=== PATIENT | female | born 1985 | race Caucasian/White ===

== ENCOUNTER 2019-10-18 15:41 | Emergency (ER) | payer BC, SELFPAY ==
--- NOTE | ~2019-10-18 | CT_ITS ---
EXAMINATION: CT abdomen pelvis w con DATE: 10/18/2019 17:20 INDICATION: Right flank pain TECHNIQUE: Computed tomography (CT) of the abdomen and pelvis was performed with 100 cc Omnipaque 350 intravenous contrast. The dose-length product was 519.06 mGy-cm. Automated exposure control and iter ative reconstruction technique were employed. COMPARISON: None. FINDINGS: Lung bases are unremarkable. Heart size normal. No pleural or pericardial effusion. Fatty infiltration of the liver. Gallbladder is contracted. The spleen, pancreas, adrenal glands and kidneys are unremarkable. Nonobstructive bowel gas pattern. No significant hydronephrosis. The there is fluid in the endometrium. Multiple hypoechoic masses of the uterine myometrium may represent fibro id changes. No abnormal pelvic masses or fluid collections. No free air or free fluid. No significant vascular abnormality. No lymphadenopathy. No acute osseous abnormality. IMPRESSION: 1. No acute abdominal abnormality. 2: Possible uterine fibroids with endometrial thickening. Reviewed, dictated and finalized at location A.
[2019-10-18 15:54] VITALS: BP 112/72; PULSE 102; RESP 18; TEMP 36.3; O2SAT 98
[2019-10-18 16:27] LABS: Basophils Absolute Auto 0.1 K/mm3 (0.0-0.1); Basophils Percent Auto 0.8 % (0.2-1.2); Eosinophils Absolute Auto 0.1 K/mm3 (0-0.3); Eosinophils Percent Auto 1.6 % (0-4.4); Hematocrit 41.5 % (37.0-47.0); Hemoglobin 13.4 g/dL (12.0-15.0); Immature Granulocyte Absolute 0.02 K/mm3 (0.00-0.031); Immature Granulocyte Percent A 0.3 % (0-0.5); Lymphocytes Absolute Auto 0.96 K/mm3 (0.9-3.2); Lymphocytes Percent Auto 15.1 % (18.3-44.2); Mean Corpuscular HGB Conc 32.3 g/dl (32-36); Mean Platelet Volume 9.4 fl (7.4-10.4); Monocytes Absolute Auto 0.7 K/mm3 (0.1-0.6); Neutrophils Absolute Auto 4.5 K/mm3 (1.3-6.7); Neutrophils Percent Auto 71.2 % (45.5-73.1); Platelet Count Result 333 k/mm3 (150-375); Red Blood Count 4.46 M/mm3 (4.2-5.4); Red Cell Distribution Width 13.1 % (11.5-14.5); White Blood Count 6.4 K/mm3 (4.5-10.0)
[2019-10-18 16:35] LABS: Add Urine Microscopic? YES; Appearance Urine Clear (Clear); Bacteria Urine Trace /hpf; Bilirubin Urine Negative (Negative); Color Urine Amber (Yellow); Glucose Urine UA Negative (Negative); Ketones Urine Negative (Negative); Leukocyte Esterase Ur Trace LEU/UL (Negative); Nitrate Urine Negative (Negative); Protein Urine 1+ mg/dL (Negative); RBC Urine 0-2 /hpf (0-2); Specific Grav Ur 1.027 (1.001-1.035); Squamous Epithelial Cell Urine Many /hpf (Few)
[2019-10-18 16:37] LABS: Blood Urine Negative (Negative)
[2019-10-18 16:38] LABS: Blood Urea Nitrogen 14 mg/dL (7-17); Calcium 8.8 mg/dL (8.4-10.2); Carbon Dioxide 27 mmol/L (22-30); Chloride 102 mmol/L (98-107); Estimated Glomerular Filt Rate > 60; Glucose 79 mg/dL (65-105); Sodium 136 mmol/L (137-145)
--- NOTE | 2019-10-18 16:46 | ED.ABDPAIN ---
HPI - Abdominal Pain General Chief Complaint: Urogenital-Female Stated Complaint: uti/kidney stone Time Seen by Provider: 10/18/19 15:56 History of Present Illness HPI narrative: Patient is a 34 YO female who comes to ED today with complaints of right flank pain. She has been having urinary urgency and frequency x 5 days. R flank pain started 2 days ago, was seen by PCP yesterday and dx with UTI and started on abx. Admits to some nausea without vomiting. No other symptoms or concerns. Related Data Home Medications Medication Instructions Recorded Confirmed montelukast mg 10/18/19 sulfamethoxazole-trimethoprim 10/18/19 Allergies Allergy/AdvReac Type Severity Reaction Status Date / Time orange Allergy Unknown RASH Verified 10/18/19 15:42 codeine Allergy Loss of Verified 10/18/19 15:59 Consciousness oxycodone AdvReac Unknown Unknown Verified 10/18/19 15:42 Review of Systems Review of Systems: All systems reviewed & are unremarkable except as noted in HPI and below PMFSH Social History Social History Smoking status: Never smoker Alcohol intake: current Substance use: never Gender identity (if verbalized by the patient): Female Exam Const: General: healthy appearing, no acute distress and alert Orientation/consciousness: patient oriented x3 HENMT: Head: normal to inspection Eyes: Conjunctivae: conjunctivae normal Pupils: Equal, round and reactive pupils present Neck: Neck: normal visual inspection Chest: Chest palpation & inspection: normal inspection of the chest Resp: Effort & Inspection: normal respiratory effort Cardio: Rate: regular rate Rhythm: regular rhythm GI: Inspection: non-distended GI Palp: Yes Soft to palpation, Yes Tenderness to palpation present (GI) (TTP over R flank, R CVA, RLQ and suprapubic region) and No Rebound tenderness present : General: Yes CVA tenderness Skin: General skin exam: normal color Neuro: General: patient oriented x3 and moves all extremities Extrem: General: normal to inspection Psych: Appearance: grossly normal Mental Status: mental status grossly normal Thought content: Yes Normal thought content present Course Vital Signs Vital signs: Vital Signs Temperature 36.3 C L 10/18/19 15:54 Pulse Rate 102 H 10/18/19 15:54 Respiratory Rate 18 05/01/20 15:54 Blood Pressure 112/72 05/01/20 15:54 Pulse Oximetry 98 10/18/19 15:54 Temperature 36.3 C L 10/18/19 15:54 Pulse Rate 102 H 10/18/19 15:54 Respiratory Rate 18 10/18/19 15:54 Blood Pressure 112/72 10/18/19 15:54 Pulse Oximetry 98 10/18/19 15:54 MDM - Abdominal Pain MDM Narrative Medical decision making narrative: Patient comes in with flank pain. Dx with UTI and started on bactrim by PCP yesterday. Work up and exam consistent with early pyelo. She only recieved a 3 day course of bactrim so I am goint to extend that out to 10 days. Discussed home care and return precautions. Patient agreeable. Lab Data Result diagrams: 10/18/19 16:21 10/18/19 16:21 Labs: Lab Results 10/18/19 10/18/19 10/18/19 Range/Units 16:21 16:21 16:21 WBC 6.4 (4.5-10.0) K/mm3 RBC 4.46 (4.2-5.4) M/mm3 Hgb 13.4 (12.0-15.0) g/dL Hct 41.5 (37.0-47.0) % MCV 93.0 (80-100) fl MCH 30.0 (26-34) pg MCHC 32.3 (32-36) g/dl RDW 13.1 (11.5-14.5) % Plt Count 333 (150-375) k/mm3 MPV 9.4 (7.4-10.4) fl Immature Gran % (Auto) 0.3 (0-0.5) % Neut % (Auto) 71.2 (45.5-73.1) % Lymph % (Auto) 15.1 L (18.3-44.2) % [place] % (Auto) 11.0 H (2.6-8.5) % Eos % (Auto) 1.6 (0-4.4) % Baso % (Auto) 0.8 (0.2-1.2) % Lymph # (Auto) 0.96 (0.9-3.2) K/mm3 [place] # (Auto) 0.7 H (0.1-0.6) K/mm3 Eos # (Auto) 0.1 (0-0.3) K/mm3 Baso # (Auto) 0.1 (0.0-0.1) K/mm3 Abs Immat Gran (auto) 0.02 (0.00-0.031) K/mm3 Absolute Neuts (auto)
[2019-10-18] MEDS: KETOROLAC 15 MG/ML VIAL (*BKC) IV PUSH (16:50)
== END 2019-10-18 19:04 | disposition home or self-care (01) ==
PROVIDERS: Emergency Medicine
DX: N12 Tubulo-interstitial nephritis, not specified as acute or chronic (principal); R93.89 Abnormal findings on diagnostic imaging of other specified body structures
CPT/HCPCS: 36415; 74177; 80048; 81001; 81025; 85025; 87086; 96374; 99284; J1885; Q9967

== ENCOUNTER 2020-03-24 15:33 | Observation (INO) | payer OTHER, SELFPAY ==
--- NOTE | ~2020-03-24 | US_ITS ---
EXAMINATION: US OB <= 14 weeks fetus EXAM DATE: 03/24/2020 17:12 INDICATION: , vaginal bleeding. 1st trimester. TECHNIQUE: Pelvic obstetrical transabdominal sonogram was performed by a technologist. There are mu ltiple grayscale and Doppler images available for interpretation. There are no earlier studies of th is gestation for comparison. FINDINGS: The uterus measures 11.5 x 5.0 x 6.9 cm, with a markedly thickened endometrium at 21 mm, pr obably decidual reaction, but no intrauterine is identified. Also no extrauterine identified. Early intrauterine or recent spontaneous are common causes of elevate d beta hCG in absence of intrauterine confirmation. Ultrasound can sometimes identify, but never exclude an ectopic in the setting of positive beta hCG. Follow up as warranted clin ically with serial beta hCG levels or ultrasound. There are several large cervical cysts, nabothian cysts. Both ovaries are identified, and are morphol ogically normal with the right measuring 2.5 x 1.5 and the left measuring 3.4 x 1.9 cm. IMPRESSION: Thickened endometrium without intrauterine or extrauterine identified. Could be decidual reaction. Reviewed, dictated and finalized at location G. IMPRESSION: Thickened endometrium without intrauterine or extrauterine pregnanc y identified. Could be decidual reaction.
--- NOTE | ~2020-03-24 | US_ITS ---
EXAMINATION: US OB <=14 wk fetus w TV DATE: 03/26/2020 09:41 INDICATION: Vaginal bleeding. Early . TECHNIQUE: Real-time pelvic ultrasound utilizing both a transvaginal and transabdominal probe was pe rformed. The interpreting radiologist was not present for the study. COMPARISON: 03/24/2020 FINDINGS: The uterus measures 9.3 x 6.2 x 5.4 cm. The endometrial complex measures 1.6 cm in thickness.No evid ent intrauterine fluid or gestational sac. 1.4 cm nabothian cyst at the cervix. The right ovary measures 3.3 x 1.9 x 2.3 cm with normal vascular flow on color Doppler. The left ovar y not visualized. No abnormal adnexal masses identified. There is mild amount of free fluid in the cu l-de-sac. IMPRESSION: 1. Endometrial complex remains thickened to 1.6 cm without evident intrauterine or extrauterine pregn sherrill. Differential would include early , failed or ectopic . Reviewed, dictated and finalized at location A. IMPRESSION: 1. Endometrial complex remains thickened to 1.6 cm without evident intrauterine or extrauterine . Differential would include early , failed or ectopic .
[2020-03-24 16:25] VITALS: BP 140/87; PULSE 100; RESP 15; TEMP 36.5; O2SAT 99
--- NOTE | 2020-03-24 18:15 | ED.PREGNANCY ---
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 Bazzi who presents for evaluation of vaginal bleeding and cramping. Per patient, patient has had vaginal bleeding and cramping intermittently since Monday, over the past 72 hours. Patient reports mostly right-sided abdominal pain and cramping. No fever, nausea or vomiting. She intermittently has had heavy bleeding, has not utilizing 1 pad per hour. This afternoon she had outpatient blood work done at Dr. Bazzi's office, does not have the results of this at this time. She denies any urinary symptoms, she does report some obvious hematuria with the vaginal bleeding. Last pregnancies were 13 and 9 years ago and uncomplicated. No history of miscarriage. Patient believes her blood type is A-. Related Data Home Medications Medication Instructions Recorded Confirmed montelukast mg 10/18/19 sulfamethoxazole-trimethoprim 10/18/19 Allergies Allergy/AdvReac Type Severity Reaction Status Date / Time orange Allergy Unknown RASH Verified 10/18/19 15:42 codeine Allergy Loss of Verified 10/18/19 15:59 Consciousness oxycodone AdvReac Unknown Unknown Verified 10/18/19 15:42 Review of Systems Review of Systems: Narrative: CONSTITUTIONAL: Denies fever, chills CARDIOVASCULAR: Denies chest pain RESPIRATORY: Denies cough or dyspnea. GASTROINTESTINAL: Reports right-sided abdominal pain, nausea without vomiting GENITOURINARY: Denies dysuria, reports vaginal bleeding SKIN: Denies rash or itching. MUSCULOSKELETAL: Denies back pain, joint pain, or myalgia. NEUROLOGIC: Denies headache, numbness, or weakness. [facility] Social History Social History Smoking status: Never smoker Alcohol intake: current Substance use: never Gender identity (if verbalized by the patient): Female Exam Narrative: Exam Narrative: GENERAL: Awake, alert, conversant HEAD: Normocephalic, atraumatic. EYES: PERRLA and EOMI. ENT: Nares clear, no rhinorrhea or epistaxis. Mucous membranes moist. NECK: Supple. CHEST: No respiratory distress, breathing even and non labored HEART: Borderline tachycardic rate, sinus rhythm ABDOMEN:Non distended, mild right lower quadrant abdominal tenderness, no rebound or guarding : Approximately 25 mL of vaginal blood and blood clot present with cervical examination. Cervical os is dilated to 2 to 3 cm. Nontender to palpation. No cervical erythema or compressibility. No adnexal tenderness or fullness. EXTREMITIES: Normal range of motion. No edema. SKIN: Warm, dry, no rash. NEURO:No focal deficits. Alert and oriented x3 Course Vital Signs Vital signs: Vital Signs Temperature 36.5 C 03/24/20 16:25 Pulse Rate 100 03/24/20 16:25 Respiratory Rate 15 03/24/20 16:25 Blood Pressure 140/87 03/24/20 16:25 Pulse Oximetry 99 03/24/20 16:25 Temperature 36.5 C 03/24/20 16:25 Pulse Rate 100 03/24/20 16:25 Respiratory Rate 15 03/24/20 16:25 Blood Pressure 140/87 03/24/20 16:25 Pulse Oximetry 99 03/24/20 16:25 MDM - OB/Uterine Contractions MDM Narrative Medical decision making narrative: Pt with likely miscarriage, but awaiting lab results for bHCG and H/H to eval for anemia or possible ectopic. Dr. Bazzi recommends 50 mcg IM Rhogam. Patient with stable hemoglobin and hematocrit. Beta-hCG is greater than 2600. Given focal right-sided pain, cannot entirely rule out ectopic as no extrauterine or intrauterine was identified on ultrasound. Clinically on exam, seems that patient is likely experiencing a miscarriage, given the type of clots present on pelvic exam.
[2020-03-24 18:47] LABS: Basophils Absolute Auto 0.1 K/mm3 (0.0-0.1); Basophils Percent Auto 0.4 % (0.2-1.2); Eosinophils Absolute Auto 0.1 K/mm3 (0-0.3); Eosinophils Percent Auto 0.5 % (0-4.4); Hematocrit 39.7 % (37.0-47.0); Hemoglobin 12.9 g/dL (12.0-15.0); Immature Granulocyte Absolute 0.05 K/mm3 (0.00-0.031); Immature Granulocyte Percent A 0.4 % (0-0.5); Lymphocytes Absolute Auto 2.95 K/mm3 (0.9-3.2); Lymphocytes Percent Auto 21.9 % (18.3-44.2); Mean Corpuscular HGB Conc 32.5 g/dl (32-36); Mean Corpuscular Volume 92.3 fl (80-100); Mean Platelet Volume 9.3 fl (7.4-10.4); Monocytes Percent Auto 7.4 % (2.6-8.5); Neutrophils Absolute Auto 9.3 K/mm3 (1.3-6.7); Neutrophils Percent Auto 69.4 % (45.5-73.1); Platelet Count Result 372 k/mm3 (150-375); Red Cell Distribution Width 14.3 % (11.5-14.5); White Blood Count 13.4 K/mm3 (4.5-10.0)
[2020-03-24 18:58] LABS: Anion Gap 9 mmol/L (8-16); Blood Urea Nitrogen 13 mg/dL (7-17); Calcium 9.2 mg/dL (8.4-10.2); Carbon Dioxide 22 mmol/L (22-30); Chloride 107 mmol/L (98-107); Estimated Glomerular Filt Rate > 60; Glucose 90 mg/dL (65-105); Potassium 3.7 mmol/L (3.4-5.0); Sodium 138 mmol/L (137-145)
[2020-03-24 19:12] LABS: INR 0.9; Prothrombin Time 12.3 Seconds (11.1-14.7)
[2020-03-24 19:13] LABS: Partial Thromboplastin Time 24.1 SECONDS (22.3-36.8)
[2020-03-24 19:20] LABS: Add Urine Microscopic? YES; Appearance Urine Cloudy (Clear); Bilirubin Urine Negative (Negative); Blood Urine 3+ (Negative); Color Urine Red (Yellow); Glucose Urine UA Negative (Negative); Ketones Urine Negative (Negative); Leukocyte Esterase Ur Negative LEU/UL (Negative); Mucus Urine Rare /lpf; Nitrate Urine Negative (Negative); Protein Urine 2+ mg/dL (Negative); RBC Urine >75 /hpf (0-2); Specific Grav Ur 1.013 (1.001-1.035); Urobilinogen Urine Negative mg/dL (<2.0)
[2020-03-24] MEDS: SODIUM CHLORIDE 0.9% IV 1,000 ML 999 ML IV CONT (19:52)
[2020-03-24] MEDS: ONDANSETRON INJ 4 MG/2 ML VIAL IV PUSH ×2 (19:53→23:43)
[2020-03-24 20:02] VITALS: BP 109/79; PULSE 82; RESP 16; O2SAT 97
[2020-03-24 20:13] VITALS: BP 109/79; PULSE 78; RESP 16; TEMP 36.6; O2SAT 100
[2020-03-24 20:30] VITALS: BP 110/70; PULSE 89; RESP 18; TEMP 36.6; O2SAT 100; BMI 32.9
--- NOTE | 2020-03-24 20:33 | ADMGEN ---
This patient, Payton Aguiar, was admitted to 3 [facility] Surg Room 301-01. Patient/family oriented to hospital policies and general routines including ID bracelet, bed and alarms, visiting hours, pain management, procedures, bathroom and other care routines, personal items, smoking policy, room service/diet, and visiting hours. Valuables list has been completed. Information on how to activate the Rapid Response Team has been discussed. Patient/Family are encouraged to report perceived risks to care and to ask questions if they do not understand what they are told or what they should do.
[2020-03-24] MEDS: SODIUM CHLORIDE 0.9% IV 1,000 ML 125 ML IV CONT (21:48)
[2020-03-24] MEDS: MORPHINE SULFATE (*CRX) 4 MG/ML INJ IV PUSH (22:17)
[2020-03-24] MEDS: RHO(D) IMMUNE GLOBULIN 300 MCG SYRINGE 50 MCG IM (23:49)
[2020-03-25 00:40] VITALS: BP 110/70; PULSE 89; RESP 18; TEMP 36.6; O2SAT 100
--- NOTE | 2020-03-25 00:42 | PC.NURSE ---
Rho D Immune Globulin given IM
[2020-03-25] MEDS: IBUPROFEN IV 800 MG/200 ML 800 MG/200 ML BAG 400 MG IVPB ×2 (00:44→22:41)
[2020-03-25 06:00] VITALS: BP 103/60; PULSE 84; RESP 16; TEMP 36.3; O2SAT 98
[2020-03-25] MEDS: SODIUM CHLORIDE 0.9% IV 1,000 ML 125 ML IV CONT (06:33)
--- NOTE | 2020-03-25 12:56 | PM.IMHP ---
H&P: HPI History of Present Illness Date/Time: 03/25/20 12:56 Chief complaint: Vaginal bleeding, early Narrative: Payton Aguiar is a 34 year old female, multiparous, who presents emergency department with lower abdominal pain and vaginal bleeding. She is known to be . She was evaluated in the ER and an ultrasound was performed. No intrauterine was observed. She had an HCG of two thousand six hundred. She reported some very heavy bleeding prior to entering the emergency department. No real heavy bleeding was observed there. She has been on the floor and her bleeding has diminished significantly. She denies any nausea, vomiting, fever, chills. She denies any chest pain or shortness of breath. She denies any syncope or trouble walking. Review of Systems Constitutional: Constitutional: Reports no additional constitutional complaints, Denies fatigue, Denies headache(s), Denies lethargy and Denies weakness Eyes: Eyes: Reports no additional eye complaints, Denies blurry vision and Denies photophobia ENT: Reports as per HPI, Denies headache(s) and Denies neck pain Cardiovascular: Cardiovascular: Denies chest pain, Denies diaphoresis, Denies leg edema, Denies palpitations and Denies dyspnea Respiratory: Respiratory: Denies hemoptysis, Denies dyspnea and Denies wheezing Gastrointestinal: Gastrointestinal: Denies abdominal pain, Denies melena, Denies bloating, Denies hematochezia, Denies nausea and Denies vomiting Genitourinary: Genitourinary: Reports no additional female genitourinary complaints Musculoskeletal: Musculoskeletal: Denies joint swelling, Denies neck pain, Denies numbness and Denies stiffness Neurologic: Denies Abnormal speech present, Denies confusion, Denies headache(s), Denies numbness and Denies weakness Psychiatric: Psychiatric: Denies anxiety, Denies confusion, Denies depression, Denies homicidal ideation and Denies suicidal ideation Endocrine: Endocrine: Denies fatigue and Denies palpitations Allergic/Immunologic: Allergic/Immunologic: Denies wheezing [facility] Family History Family History (Updated 03/24/20 @ 21:30 by Leela Zaragoza RN) Father Hypertension Social History Social History Smoking packs per day: 1.5 Smoking cigarettes per day: 30.0 Years smoked: 10 Smoking pack-years: 15.00 Smoking status: Former smoker Tobacco type: cigarettes Second hand tobacco smoke exposure: No Alcohol intake: never Substance use: former Substance use type: marijuana Gender identity (if verbalized by the patient): Female Spiritual care concerns: No Meds Home Medications and Allergies Home Medications Medication Instructions Recorded Confirmed Type montelukast 10 mg PO DAILY 10/18/19 03/24/20 History cetirizine [Zyrtec] 10 mg PO DAILY 03/24/20 03/24/20 History pediatric multivitamin 1 tablet PO DAILY 03/24/20 03/24/20 History [Flintstones Multivitamin] Allergies Allergy/AdvReac Type Severity Reaction Status Date / Time orange Allergy Unknown RASH Verified 10/18/19 15:42 codeine Allergy Loss of Verified 10/18/19 15:59 Consciousness oxycodone AdvReac Unknown Unknown Verified 10/18/19 15:42 morphine AdvReac Itching Verified 03/24/20 22:31 Vital Signs Vital Signs - 24 hr 03/24/20 16:25 03/24/20 20:02 03/24/20 20:13 Temperature 97.7 F 97.9 F Pulse Rate 100 82 78 Respiratory Rate 15 16 16 Blood Pressure 140/87 109/79 109/79 Pulse Oximetry 99 97 100 03/24/20 20:30 03/25/20 00:40 03/25/20 06:00 Temperature 97.9 F 97.9 F 97.3 F L Pulse Rate 89 89 84 Respiratory Rate 18 18 16 Blood Pressure 110/70 110/70 103/60 Pulse Oximetry 100 100 98 Exam Const: General: healthy appearing, comfortable and no acute distress; No confusion Orientation/consciousness: No confusion Eyes: Direct Ophthalmoscopy: No photophobia Resp: Auscultation: clear to auscultation bilaterally,
[2020-03-25 14:00] VITALS: BP 98/57; PULSE 95; RESP 18; TEMP 36.9; O2SAT 100
[2020-03-25] MEDS: MONTELUKAST SODIUM 10 MG TABLET PO (15:13)
[2020-03-25] MEDS: LORATADINE 10 MG TABLET PO (15:13)
[2020-03-25 22:00] VITALS: BP 129/71; PULSE 92; RESP 16; TEMP 36.7; O2SAT 100
[2020-03-26] MEDS: SODIUM CHLORIDE 0.9% IV 1,000 ML 125 ML IV CONT (05:04)
[2020-03-26 06:00] VITALS: BP 105/55; PULSE 79; RESP 18; TEMP 36.6; O2SAT 97
--- NOTE | 2020-03-26 08:06 | PM.OBPNVD ---
OB - PN: Subj Subjective Date/time seen: 03/26/20 08:06 OB - PN: Obj Data Labs CBC & Chem 7: 03/24/20 18:40 03/24/20 18:40 Labs: Laboratory Results - last 24 hr 03/25/20 03/26/20 11:29 05:46 Beta HCG, Quant 2683.40 3653.00 OB - PN A/P Time Spent With Patient Time: Total time spent is greater than 50% in coordination of care (as documented) at patient's floor/unit and/or counseling patient: Time with patient: 15 - 25 minutes Exam Const: General: cooperative, healthy appearing, comfortable and no acute distress Resp: Auscultation: no crackles, no rales, no rhonchi and no wheezes Cardio: Rhythm: regular rhythm Heart sounds: no click and no murmurs GI: Inspection: non-distended Auscultation: normal bowel sounds Other: Incisions - CDI Extrem: General: normal to inspection, no pedal edema and no calf tenderness
[2020-03-26] MEDS: LORATADINE 10 MG TABLET PO (08:39)
[2020-03-26] MEDS: MONTELUKAST SODIUM 10 MG TABLET PO (08:40)
--- NOTE | 2020-03-26 12:24 | PM.GYNPNOP ---
SENIOR LEAD SOFTWARE ENGINEER - A/P Assessment and plan (1) Vaginal bleeding in : Code(s): O46.90 - Antepartum hemorrhage, unspecified, unspecified trimester Status: Acute Assessment and Plan: this patient is a 34-year-old female, multiparous, who presents emergency department with vaginal bleeding. She is . She believed to be about 5 weeks gestation. She has been observed for almost 48 hours. It is unclear whether she has ectopic , normal intrauterine or a incomplete . This time she is stable. HCGs are trending upward though they may not be normally trending. She is having very minimal pain. There is no evidence of ectopic on ultrasound. We will follow up with this patient about 3 days with quantitative HCG and pelvic ultrasound in the office. She will be discharged at this time. Time Spent With Patient Time: Total time spent is greater than 50% in coordination of care (as documented) at patient's floor/unit and/or counseling patient: Time with patient: less than 15 minutes SENIOR LEAD SOFTWARE ENGINEER- PN:Subj Post-Op Subjective Date/time seen: 03/26/20 12:24The patient reports diminished bleeding, diminished lower abdominal/ pelvic pain. Exam Const: General: healthy appearing, comfortable and no acute distress Resp: Auscultation: clear to auscultation bilaterally, no rales, no rhonchi and no wheezes Cardio: Rate: regular rate Heart sounds: no click, no murmurs and no rubs GI: Inspection: non-distended Auscultation: normal bowel sounds Extrem: General: normal to inspection, no pedal edema and no calf tenderness SENIOR LEAD SOFTWARE ENGINEER - PN: Obj Data Vital Signs Vital Signs: Vital Signs - 24 hr 03/25/20 14:00 03/25/20 22:00 03/26/20 06:00 Temperature 98.5 F 98.1 F 98 F Pulse Rate 95 92 79 Respiratory Rate 18 16 18 Blood Pressure 98/57 L 129/71 105/55 L Pulse Oximetry 100 100 97 Intake/Output Intake/Output: Intake & Output 03/23/20 03/24/20 03/25/20 03/26/20 23:59 23:59 23:59 23:59 Intake Total 1100 3641 600 Balance 1100 3641 600 Meds/Results Medications: Active Medications Generic Name Dose Route Start Last Admin Trade Name Freq PRN Reason Stop Dose Admin Sodium Chloride 1,000 mls @ 125 mls/hr 03/24/20 19:05 03/26/20 05:04 Normal Saline Iv IV CONT 125 mls/hr .Q8H JUNO Administration Ibuprofen 800 mg in 200 mls @ 400 mls/hr 03/25/20 00:04 03/26/20 05:05 Caldolor 800 Mg/200 Ml IVPB Infused Q6H PRN Infusion Pain Rated 4-6 Loratadine 10 mg 03/25/20 14:10 03/26/20 08:39 Claritin PO 10 mg QAM JUNO Administration Montelukast Sodium 10 mg 03/25/20 14:10 03/26/20 08:40 Singulair PO 10 mg DAILY JUNO Administration Morphine Sulfate 4 mg 03/24/20 19:03 03/24/20 22:17 Morphine Sulfate Inj (*Crx) IV PUSH 4 mg Q2H PRN Administration Pain Rated 7-10 Ondansetron HCl 4 mg 03/24/20 19:03 03/24/20 23:43 Zofran Inj IV PUSH 4 mg Q4H PRN Administration Nausea Radiology Results: ITS Impressions Ultrasound 03/24/20 17:25 IMPRESSION: Thickened endometrium without intrauterine or extrauterine identified. Could be decidual reaction. Obstetrics Ultrasound 03/26/20 09:44 IMPRESSION: 1. Endometrial complex remains thickened to 1.6 cm without evident intrauterine or extrauterine . Differential would include early , failed or ectopic . Labs CBC & Chem 7: 03/24/20 18:40 03/24/20 18:40 Labs: Laboratory Results - last 24 hr 03/26/20 05:46 Beta HCG, Quant 3653.00
--- NOTE | 2020-03-26 12:27 | PM.DS ---
DS: Admitting Diagnosis Admitting Diagnosis Admitting Diagnosis: Vaginal bleeding, early DS: Discharge Diagnosis Discharge Diagnosis (1) Vaginal bleeding in : Code(s): O46.90 - Antepartum hemorrhage, unspecified, unspecified trimester Status: Acute DS: Summary Hospital Course Reason for hospitalization: Vaginal bleeding, , rule out ectopic Hospital Course: patient was admitted through the emergency department for vaginal bleeding in . Her HCGs were followed, her pain was observed. She was stable throughout her hospitalization. To afebrile. Her pain was well controlled. She is discharged on hospital day 2 with close follow-up. She will have serial HCGs and ultrasound in about 3 days. for diagnosis remains unclear: Ectopic, intrauterine , incomplete . Status at Discharge Functional status at discharge: independent ambulation Time Spent with Patient Time attestation: Total time spent providing and/or coordinating discharge services: DS: Data Data Completed and Pending Labs on day of discharge: Labs from last 24 hours 03/26/20 05:46 Beta HCG, Quant 3653.00 Discharge Plan Discharge Discharging Clinician: Jacqueline Bazzi Patient Disposition: Home, Self-Care Activity: pelvic rest Diet: regular Patient Instructions: Antibiotic Form Stand Alone Forms: General Discharge Information Follow-up/Referrals: Jacqueline Bazzi MD [Primary Care Provider] - Discharge Medications: Continued montelukast 10 mg tablet 10 mg PO DAILY RF: 0 cetirizine [Zyrtec] 10 mg Tablet 10 mg PO DAILY RF: 0 Flintstones Multivitamin Tablet,Chewable 1 tablet PO DAILY RF: 0 Date of admission: 03/24/20 19:03 Primary Care Provider: Jacqueline Bazzi Admitting Provider: Jacqueline Bazzi Attending physician on admission: Jacqueline Bazzi
== END 2020-03-26 13:35 | disposition home or self-care (01) ==
LOC: ANHED 19:12 → ANH3MEDSUR 19:50
PROVIDERS: Admitting Provider Obstetrics & Gynecology; Emergency Provider Emergency Medicine; PCP Obstetrics & Gynecology; Visit Provider Obstetrics & Gynecology
DX: O46.91 Antepartum hemorrhage, unspecified, first trimester (principal); R10.2 Pelvic and perineal pain; Z87.891 Personal history of nicotine dependence; Z3A.01 Less than 8 weeks gestation of pregnancy
CPT/HCPCS: 36415; 76801; 76817; 80048; 81001; 81025; 84702; 85025; 85461; 85610; 85730; 90384; 96361; 96365; 96366; 96372; 96374; 96375; 96376; 99285; A9270; G0378; J0131; J1741; J2270; J2405; J2790; J7030

== ENCOUNTER 2020-03-28 11:01 | Outpatient (RCR) | payer OTHER, SELFPAY | END 2020-06-22 23:59 | disposition home or self-care (01) | LOC: ANHLAB 11:01 | PROVIDERS: Visit Provider Obstetrics & Gynecology | DX: Z36.89 Encounter for other specified antenatal screening (principal); Z29.13 Encounter for prophylactic Rho(D) immune globulin; O36.0130 Maternal care for anti-D [Rh] antibodies, third trimester, not applicable or unspecified; Z3A.00 Weeks of gestation of pregnancy not specified | CPT/HCPCS: 36415; 84702; 85461 ==

== ENCOUNTER 2020-03-28 12:07 | Emergency (ER) | payer OTHER, SELFPAY ==
--- NOTE | ~2020-03-28 | US_ITS ---
US OB <=14 wk fetus w TV DATE: 03/28/2020 16:42 INDICATION: Miscarriage. Patient passed clot. Vaginal bleeding. Right-sided abdominal pain. TECHNIQUE: Real-time imaging via transabdominal and transvaginal approaches COMPARISON: None FINDINGS: The uterus measures 10.2 cm height, 6.8 cm transverse and 5.4 cm anteroposterior dimension. The endometrial echo complex measures up to 2.4 cm AP dimension. No intrauterine gestational sac is identified. Findings suggest incomplete , retained products of conception. 13 and 14 mm uterine cervical nabothian cysts are noted. Right ovary 2.7 x 1.6 x 2 cm, with vascular flow Left ovary 3.4 x 2.8 x 1.8 cm, with vascular flow. No pelvic mass or abnormal pelvic free fluid collection is evident. IMPRESSION: Incomplete Reviewed, dictated and finalized at [facility]. Reviewed, dictated and finalized at location A. IMPRESSION: Incomplete
[2020-03-28 12:12] VITALS: BP 126/81; PULSE 98; RESP 20; TEMP 36.4; O2SAT 100
[2020-03-28 12:38] LABS: Basophils Percent Auto 0.4 % (0.2-1.2); Eosinophils Absolute Auto 0.2 K/mm3 (0-0.3); Eosinophils Percent Auto 1.6 % (0-4.4); Hematocrit 39.2 % (37.0-47.0); Hemoglobin 12.7 g/dL (12.0-15.0); Immature Granulocyte Absolute 0.03 K/mm3 (0.00-0.031); Immature Granulocyte Percent A 0.3 % (0-0.5); Lymphocytes Absolute Auto 2.23 K/mm3 (0.9-3.2); Lymphocytes Percent Auto 21.7 % (18.3-44.2); Mean Corpuscular HGB Conc 32.4 g/dl (32-36); Mean Corpuscular Hemoglobin 29.8 pg (26-34); Mean Platelet Volume 9.6 fl (7.4-10.4); Monocytes Absolute Auto 0.6 K/mm3 (0.1-0.6); Monocytes Percent Auto 6.2 % (2.6-8.5); Neutrophils Absolute Auto 7.2 K/mm3 (1.3-6.7); Neutrophils Percent Auto 69.8 % (45.5-73.1); Platelet Count Result 320 k/mm3 (150-375); Red Blood Count 4.26 M/mm3 (4.2-5.4); Red Cell Distribution Width 14.6 % (11.5-14.5); White Blood Count 10.3 K/mm3 (4.5-10.0)
[2020-03-28 15:57] VITALS: BP 115/76; PULSE 90; RESP 20; O2SAT 99
--- NOTE | 2020-03-28 16:36 | ED.ABDPAIN ---
HPI - Abdominal Pain General Chief Complaint: Vaginal Bleeding Stated Complaint: vaginal bleeding and cramping, right abd pain Time Seen by Provider: 03/28/20 12:36 Source: patient and family Mode of arrival: ambulatory Limitations: no limitations History of Present Illness HPI narrative: Patient 34 years old white female came to the emergency room because of vaginal bleeding which started 1 week ago, got worse this morning. Patient was seen by her DIRECTOR OF MARKETING [employer] few days ago with pelvic ultrasound showing possible early , possible ectopic or miscarriage. Patient was complaining of suprapubic abdominal cramps and nausea. Currently patient denies 5 to 6 weeks Patient is para 3, 2, 0 The patient is Rh O-, received a shot of RhoGam 4 days ago which is sufficient for 12 weeks. Related Data Home Medications Medication Instructions Recorded Confirmed montelukast 10 mg PO DAILY 10/18/19 03/24/20 Flintstones Multivitamin 1 tablet PO DAILY 03/24/20 03/24/20 cetirizine [Zyrtec] 10 mg PO DAILY 03/24/20 03/24/20 Allergies Allergy/AdvReac Type Severity Reaction Status Date / Time orange Allergy Unknown RASH Verified 10/18/19 15:42 codeine Allergy Loss of Verified 10/18/19 15:59 Consciousness oxycodone AdvReac Unknown Unknown Verified 10/18/19 15:42 morphine AdvReac Itching Verified 03/24/20 22:31 Review of Systems Review of Systems: Narrative: CONSTITUTIONAL: Denies fever, chills, or sweats. EYES: Denies visual changes, redness, or discharge. ENT: Denies rhinorrhea, congestion, sore throat, or otalgia. CARDIOVASCULAR: Denies chest pain, palpitations, or edema. RESPIRATORY: Denies cough or dyspnea. GASTROINTESTINAL: Denies abdominal pain, nausea, vomiting, or diarrhea. GENITOURINARY: Denies dysuria or hematuria. SKIN: Denies rash or itching. MUSCULOSKELETAL: Denies back pain, joint pain, or myalgia. NEUROLOGIC: Denies headache, numbness, or weakness. PSYCHIATRIC: Denies anxiety or depression. [facility] Past Medical History Medical History (Updated 03/28/20 @ 16:48 by Jasen Spear MD) Fibromyalgia Family History Family History (Updated 03/24/20 @ 21:30 by Leela Zaragoza RN) Father Hypertension Social History Social History Smoking packs per day: 1.5 Smoking cigarettes per day: 30.0 Years smoked: 10 Smoking pack-years: 15.00 Smoking status: Former smoker Tobacco type: cigarettes Second hand tobacco smoke exposure: No Alcohol intake: never Substance use: former Substance use type: marijuana Gender identity (if verbalized by the patient): Female Spiritual care concerns: No Exam Narrative: Exam Narrative: General appearance: Well-developed, well-nourished Skin: Normal color Head: Normocephalic, nontraumatic Eyes: Clear conjunctiva ENT: Oropharynx normal, ears normal, nose normal Neck: Supple, nontender Chest and respiratory: Airway patent, no respiratory distress, no accessory muscle use Heart: Regular rate/rhythm Abdomen: Soft, mild diffuse tenderness lower abdomen bilaterally mainly on the right side, no organomegaly, quiet bowel sounds Vascular: Normal peripheral pulses, normal capillary refill. Musculoskeletal: Normal range of motion, nontender back Neurologic: Alert and oriented ?3, CLERK TRAVEL RESERVATIONS is normal as tested, no gross motor deficit Const: General: cooperative : External Female Exam: normal external appearance Speculum Exam - Vagina: normal appearance of the vagina and vaginal bleeding (Patient brought back to house and they cervix, I was able to pull it out,) Speculum Exam - Cervix: Cervical os open [place]
--- NOTE | 2020-03-28 17:20 | PC.NURSE ---
product of conception walked down to lab
== END 2020-03-28 17:27 | disposition home or self-care (01) ==
PROVIDERS: Emergency Provider Emergency Medicine; PCP Obstetrics & Gynecology
DX: O03.9 Complete or unspecified spontaneous abortion without complication (principal); M79.7 Fibromyalgia; Z87.891 Personal history of nicotine dependence
CPT/HCPCS: 36415; 76801; 76817; 84702; 85025; 85461; 86880; 86902; 88305; 99284

== ENCOUNTER 2020-04-01 00:55 | Outpatient (CLI) | payer OTHER, SELFPAY ==
[2020-04-01 18:39] LABS: SARS-CoV-2 RNA PCR Negative
== END 2020-04-01 00:56 | disposition home or self-care (01) ==
LOC: ANHCOVIDDT 00:56
PROVIDERS: PCP Obstetrics & Gynecology; Visit Provider Obstetrics & Gynecology
DX: Z01.812 Encounter for preprocedural laboratory examination (principal); Z20.828 Contact with and (suspected) exposure to other viral communicable diseases
CPT/HCPCS: 87635; C9803; U0003

== ENCOUNTER 2020-04-02 01:08 | Day surgery (SDC) | payer OTHER, SELFPAY ==
[2020-03-31 15:47] VITALS: BMI 32.5
[2020-04-02] MEDS: ACETAMINOPHEN 500 MG TABLET 1000 MG PO (11:25)
[2020-04-02] MEDS: LACTATED RINGERS 1,000 ML 30 ML IV CONT (11:25)
--- NOTE | 2020-04-02 11:40 | WPDANESEPPF ---
Anes - Initial Pre Proc Eval Procedure: Operation Date: 04/02/20 12:45 Proposed Procedures p Suction Dilation And Curettage - Jacqueline Bazzi MD Date/Time: 04/02/20 11:40 Surgeon: Jacqueline Bazzi MD Pre Op Diagnosis: Incomplete Miscarriage Patient Data Age: 34 Gender: F Height: 4 ft 11 in Weight: 73.03 kg Allergies Allergy/AdvReac Type Severity Reaction Status Date / Time orange Allergy Unknown Itching Verified 03/31/20 15:49 codeine Allergy Loss of Verified 03/31/20 15:49 Consciousness oxycodone AdvReac Unknown vomiting, Verified 03/31/20 15:49 syncope morphine AdvReac chest Verified 03/31/20 15:49 pressure Home Medications Medication Instructions Recorded Confirmed Type montelukast 10 mg PO DAILY 10/18/19 04/02/20 History Flintstones Multivitamin 1 tablet PO DAILY 03/24/20 03/31/20 History cetirizine [Zyrtec] 10 mg PO DAILY 03/24/20 04/02/20 History Patient hx anesthesia problems: none Family hx anesthesia problems: none PMFSH Past Medical History Medical History Anxiety Asthma Depression Fibromyalgia GERD (gastroesophageal reflux disease) Hx of migraines Family History Family History Father Hypertension Social History Social History Smoking packs per day: 1.5 Smoking cigarettes per day: 30.0 Years smoked: 12 Smoking pack-years: 18.00 Smoking status: Former smoker Tobacco type: cigarettes Second hand tobacco smoke exposure: No Additional smoking assessment comments: quit 12 years ago Alcohol intake: never Substance use: former Substance use type: marijuana Last use: 16 years ago Gender identity (if verbalized by the patient): Female Spiritual care concerns: No Anes - Eval Final PreProcedure Day of Procedure 04/02/20 11:40 Patient weight: obese Heart: regular rate and rhythm Lungs: clear to auscultation Airway: Mallampati scale class II Neurological: alert and oriented Last oral intake: >/= 8 hours ASA classification: III Emergent: no Anesthetic plan: proceed Anesthesia type and monitoring: general GIVS and standard monitoring Other findings: can leave in large partial Informed Consent: The patient's anesthetic plan and its attendant risks and benefits were discussed with the patient/family/POA. Questions were solicited and answers provided to the satisfaction of the patient/family/POA.
[2020-04-02 11:41] VITALS: BP 110/72; PULSE 83; TEMP 37; O2SAT 100
--- NOTE | 2020-04-02 12:24 | WPDHPUPDATE1 ---
History and Physical Update Update Date/Time: 04/02/20 12:24 History and Physical has been reviewed, including an updated exam of the patient. There are NO changes in the patient's condition. Risks, benefits, and alternatives have been discussed and questions answered. Patient agrees to proceed with procedure.
[2020-04-02] MEDS: KETOROLAC 30 MG/ML VIAL (*BKC) IV PUSH (14:16)
--- NOTE | 2020-04-02 14:16 | SUR.OPER ---
Ebl=25ml
[2020-04-02 14:22] VITALS: BP 118/82; PULSE 80; RESP 18; O2SAT 100
--- NOTE | 2020-04-02 14:24 | PM.PROC ---
Procedure Note - Detailed Date of procedure: 04/02/20 Pre-op diagnosis: Incomplete Miscarriage Post-op diagnosis: same Procedure performed: Suction D&C Description of procedure: The patient was taken the operating room. She has prepped and draped in dorsal lithotomy position after induction of mac anesthesia. A speculum was placed in the vagina. The cervix was grasped with a tenaculum. The cervix was injected at 3 and 9:00 a.m. with 1% lidocaine. The cervix was dilated up to 8 mm using Aguilera dilators. An 8 curved plastic suction curette was then applied to the intrauterine cavity. All of the surfaces in the intrauterine cavity were curettage under VAC. A sharp medium-size curette was then used to curettage all the surfaces to confirmed the removal of all the products conception. When all surfaces for bleed to be clean the curette was removed. The suction curette was then reapplied to remove all the debris. The procedure was terminated. The tenaculum was removed. The speculum was removed. The patient tolerated the procedure well. She was taken recovery room in stable condition. Anesthesia: MAC Surgeon: Jacqueline Bazzi MD Estimated blood loss (mL): 25 Drains: No Packing: No Pathology: yes Complications: No immediate complications Condition: stable Disposition: PACU Findings: Normal vulva vagina and cervix. The moderate amounts of products conception. 8 cm uterus.
[2020-04-02 14:50] VITALS: BP 102/70; PULSE 73; RESP 18; O2SAT 94
[2020-04-02] MEDS: traMADol HCL (*CRX) 50 MG TABLET PO (14:59)
[2020-04-02 15:20] VITALS: BP 103/65; PULSE 72; RESP 18
[2020-04-02 15:30] VITALS: BP 106/68; PULSE 70; RESP 18
--- NOTE | 2020-04-02 15:30 | SUR.PHASEII ---
1530 PTS BLOOD TYPE A NEGATIVE. RECEIVED IN VERBAL REPORT FROM GRICELDA MAE RN. THAT PT RECEIVED RHOGAM 03-25-20 AND NO ADDITIONAL RHOGAM IS NEEDED TODAY.
== END 2020-04-02 15:45 | disposition home or self-care (01) ==
PROVIDERS: PCP Obstetrics & Gynecology; Visit Provider Obstetrics & Gynecology
PROC: (CPT 59812; principal; 2020-04-02 12:45)
DX: O03.4 Incomplete spontaneous abortion without complication (principal); J45.909 Unspecified asthma, uncomplicated; M79.7 Fibromyalgia; K21.9 Gastro-esophageal reflux disease without esophagitis; F41.8 Other specified anxiety disorders; Z87.891 Personal history of nicotine dependence; E66.9 Obesity, unspecified; Z68.31 Body mass index [BMI] 31.0-31.9, adult
CPT/HCPCS: 59812; 88305; A9270; J1885; J2250; J2405; J2704; J3010; J7120

== ENCOUNTER 2020-04-23 19:04 | Emergency (ER) | payer OTHER, SELFPAY ==
[2020-04-23 19:40] VITALS: BP 109/76; PULSE 94; RESP 18; TEMP 36.8; O2SAT 100
[2020-04-23] MEDS: fentaNYL CITRATE INJ (*CRX) 100 MCG/2 ML VIAL 50 MCG IM (20:00)
[2020-04-23 20:17] LABS: Basophils Percent Auto 0.4 % (0.2-1.2); Eosinophils Absolute Auto 0.1 K/mm3 (0-0.3); Eosinophils Percent Auto 0.9 % (0-4.4); Hematocrit 38.4 % (37.0-47.0); Hemoglobin 12.4 g/dL (12.0-15.0); Immature Granulocyte Absolute 0.04 K/mm3 (0.00-0.031); Immature Granulocyte Percent A 0.4 % (0-0.5); Lymphocytes Absolute Auto 2.69 K/mm3 (0.9-3.2); Lymphocytes Percent Auto 24.9 % (18.3-44.2); Mean Corpuscular HGB Conc 32.3 g/dl (32-36); Mean Corpuscular Hemoglobin 30.1 pg (26-34); Mean Corpuscular Volume 93.2 fl (80-100); Mean Platelet Volume 9.1 fl (7.4-10.4); Monocytes Percent Auto 9.3 % (2.6-8.5); Neutrophils Absolute Auto 6.9 K/mm3 (1.3-6.7); Neutrophils Percent Auto 64.1 % (45.5-73.1); Platelet Count Result 340 k/mm3 (150-375); Red Blood Count 4.12 M/mm3 (4.2-5.4); Red Cell Distribution Width 13.5 % (11.5-14.5); White Blood Count 10.8 K/mm3 (4.5-10.0)
--- NOTE | 2020-04-23 20:25 | ED.GENADULT ---
HPI - General Adult General Chief complaint: Urogenital-Female Stated complaint: abd/pelvic pain, known infection Time Seen by Provider: 04/23/20 19:20 Source: patient Mode of arrival: ambulatory Limitations: no limitations History of Present Illness HPI narrative: Patient presents with chief complaint of pelvic pain due to vaginosis that she has been finding since a miscarriage in the early part of March. Patient states that she had a D&C procedure done on the since she has had recurrent vaginal discomfort and some discharge. Patient states that she was on metronidazole for 1 week and 3 days ago she was switched to clindamycin. Patient states she has taken 2 days of clindamycin but she has noticed an increase in her vaginal pain. Patient denies vaginal bleeding and reports some thin clear vaginal discharge. Patient states that she called her FITNESS DIRECTOR Miesha Edmonds today to inform her of the discomfort but she was not in the office so the nurse took a message. She states she was informed that if her pain persisted or worsen to come to the emergency department. Related Data Home Medications Medication Instructions Recorded Confirmed montelukast 10 mg PO DAILY 10/18/19 04/02/20 Flintstones Multivitamin 1 tablet PO DAILY 03/24/20 03/31/20 cetirizine [Zyrtec] 10 mg PO DAILY 03/24/20 04/02/20 Allergies Allergy/AdvReac Type Severity Reaction Status Date / Time orange Allergy Unknown Itching Verified 03/31/20 15:49 codeine Allergy Loss of Verified 03/31/20 15:49 Consciousness oxycodone AdvReac Unknown vomiting, Verified 03/31/20 15:49 syncope morphine AdvReac chest Verified 03/31/20 15:49 pressure Review of Systems Review of Systems: Narrative: CONSTITUTIONAL: Denies fever, chills, or sweats. EYES: Denies visual changes, redness, or discharge. ENT: Denies rhinorrhea, congestion, sore throat, or otalgia. CARDIOVASCULAR: Denies chest pain, palpitations, or edema. RESPIRATORY: Denies cough or dyspnea. GASTROINTESTINAL: Denies abdominal pain, nausea, vomiting, or diarrhea. GENITOURINARY: Reports vaginal discharge and pelvic pain denies dysuria or hematuria. SKIN: Denies rash or itching. MUSCULOSKELETAL: Denies back pain, joint pain, or myalgia. NEUROLOGIC: Denies headache, numbness, dizziness, or weakness. PSYCHIATRIC: Denies anxiety or depression. [facility] Past Medical History Medical History Anxiety Asthma Depression Fibromyalgia GERD (gastroesophageal reflux disease) Hx of migraines Family History Family History Father Hypertension Social History Social History Smoking packs per day: 1.5 Smoking cigarettes per day: 30.0 Years smoked: 12 Smoking pack-years: 18.00 Smoking status: Former smoker Tobacco type: cigarettes Second hand tobacco smoke exposure: No Additional smoking assessment comments: quit 12 years ago Alcohol intake: never Substance use: former Substance use type: marijuana Last use: 16 years ago Gender identity (if verbalized by the patient): Female Spiritual care concerns: No Exam Narrative: Exam Narrative: GENERAL: Well-appearing, well-nourished, and in no acute distress. HEAD: Normocephalic, atraumatic. EYES: PERRLA and EOMI. ENT: Nares clear, no rhinorrhea or epistaxis. Mucous membranes moist. Oropharynx without tonsillar hypertrophy exudate or other lesions. Bilateral TMs pearly leon nonbulging NECK: Supple. No adenopathy or masses. CHEST: Clear to auscultation. No respiratory distress. No wheezes rales or rhonchi HEART: Regular rate and rhythm. No murmur heard. Normal peripheral pulses. : Patient is tender with speculum near cervix. There is not erythema, thin mucus like discharge noted mixed with white discharge coming from cervix. Not purulent, copious or foul smelling.
[2020-04-23 20:28] LABS: Alanine Aminotransferase 38 U/L (4-35); Alkaline Phosphatase 78 U/L (38-126); Anion Gap 9 mmol/L (8-16); Aspartate Amino Transferase 36 U/L (14-36); Bilirubin,Total 0.2 mg/dL (0.2-1.3); Blood Urea Nitrogen 15 mg/dL (7-17); Carbon Dioxide 29 mmol/L (22-30); Chloride 101 mmol/L (98-107); Estimated Glomerular Filt Rate > 60; Glucose 113 mg/dL (65-105); Potassium 3.6 mmol/L (3.4-5.0); Sodium 139 mmol/L (137-145)
[2020-04-23 20:54] VITALS: BP 108/62; PULSE 72; RESP 16; O2SAT 100
== END 2020-04-23 20:55 | disposition home or self-care (01) ==
PROVIDERS: Physician Assistant; Emergency Provider Family Medicine; PCP Obstetrics & Gynecology
DX: N76.0 Acute vaginitis (principal); Z87.891 Personal history of nicotine dependence; K21.9 Gastro-esophageal reflux disease without esophagitis; M79.7 Fibromyalgia; J45.909 Unspecified asthma, uncomplicated
CPT/HCPCS: 36415; 80053; 85025; 87070; 87491; 87591; 87808; 96372; 99284; J3010

== ENCOUNTER 2020-04-24 16:00 | Outpatient (CLI) | payer OTHER, SELFPAY ==
--- NOTE | ~2020-04-24 | US_ITS ---
EXAMINATION: US pelvic complete EXAM DATE: 04/24/2020 16:32 INDICATION: Pain in pelvis. TECHNIQUE: Pelvic transabdominal sonogram was performed. There are multiple grayscale and Doppler im ages available for interpretation. There is no prior study for comparison. FINDINGS: Uterus measures 8.4 x 4.2 x 5.6 cm, and is morphologically normal. Endometrial stripe romie sures 12 mm, within normal limits. There are nabothian cysts. There is no free pelvic fluid. Right adnexa: The ovary measures 2.2 x 1.2 x 1.5 cm and is morphologically normal. Ovarian vascular f low confirmed. Left adnexa: The ovary measures 2.1 x 1.7 x 1.6 cm and is morphologically normal. Ovarian vascular fl ow confirmed. IMPRESSION: 1. Unremarkable transabdominal pelvic ultrasound exam. Reviewed, dictated and finalized at location B. 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
== END 2020-04-24 16:01 | disposition home or self-care (01) ==
LOC: ANHIMG 16:02
PROVIDERS: PCP Obstetrics & Gynecology; Visit Provider Obstetrics & Gynecology
DX: R10.2 Pelvic and perineal pain (principal)
CPT/HCPCS: 76856

== ENCOUNTER 2020-09-25 14:52 | Emergency (ER) | payer OTHER, SELFPAY ==
--- NOTE | ~2020-09-25 | CT_ITS ---
EXAMINATION: CT abdomen pelvis wo con DATE: 09/25/2020 18:05 INDICATION: Flank pain TECHNIQUE: Computed tomography (CT) of the abdomen and pelvis was performed without intravenous contr ast. The dose-length product (DLP) was 231.12 mGy-cm. Automated exposure control and iterative recons truction technique were employed. COMPARISON: 10/18/2019 FINDINGS: A stable 3 mm nodule of the left lower lobe is consistent with old granulomatous disease. T he heart size is normal. The liver, spleen, pancreas, gallbladder, and adrenal glands are normal. The kidneys are unremarkable. No stones are identified in the kidneys, ureters, or bladder. There is no hydronephrosis or hydroureter. No pathologically enlarged abdominal or pelvic lymph nodes are identif ied. There is no free intraperitoneal gas or evidence of bowel obstruction. IMPRESSION: 1. No CT correlate for the patient's symptoms. Reviewed, dictated and finalized at location A.
[2020-09-25 15:06] VITALS: BP 135/95; PULSE 99; RESP 18; TEMP 36.2; O2SAT 100
[2020-09-25 17:18] LABS: Basophils Percent Auto 0.5 % (0.2-1.2); Eosinophils Absolute Auto 0.1 K/mm3 (0-0.3); Eosinophils Percent Auto 1.1 % (0-4.4); Hematocrit 41.4 % (37.0-47.0); Hemoglobin 13.3 g/dL (12.0-15.0); Immature Granulocyte Absolute 0.03 K/mm3 (0.00-0.031); Immature Granulocyte Percent A 0.4 % (0-0.5); Lymphocytes Absolute Auto 1.09 K/mm3 (0.9-3.2); Lymphocytes Percent Auto 13.8 % (18.3-44.2); Mean Corpuscular HGB Conc 32.1 g/dl (32-36); Mean Corpuscular Hemoglobin 29.3 pg (26-34); Mean Corpuscular Volume 91.2 fl (80-100); Mean Platelet Volume 9.2 fl (7.4-10.4); Neutrophils Absolute Auto 5.7 K/mm3 (1.3-6.7); Neutrophils Percent Auto 72.2 % (45.5-73.1); Platelet Count Result 312 k/mm3 (150-375); Red Blood Count 4.54 M/mm3 (4.2-5.4); Red Cell Distribution Width 13.4 % (11.5-14.5); White Blood Count 7.9 K/mm3 (4.5-10.0)
[2020-09-25 17:23] LABS: Add Urine Microscopic? YES; Appearance Urine Cloudy (Clear); Bacteria Urine 1+ /hpf; Bilirubin Urine Negative (Negative); Blood Urine 3+ (Negative); Color Urine Yellow (Yellow); Glucose Urine UA Negative (Negative); Ketones Urine Negative (Negative); Leukocyte Esterase Ur Trace LEU/UL (Negative); Nitrate Urine Negative (Negative); Protein Urine 2+ mg/dL (Negative); RBC Urine >75 /hpf (0-2); Squamous Epithelial Cell Urine Many /hpf (Few); Transitional Epi Cells Urine Rare /hpf (None Seen); Urobilinogen Urine Negative mg/dL (<2.0)
--- NOTE | 2020-09-25 17:28 | ED.GENADULT ---
HPI - General Adult General Chief complaint: Urogenital-Female <Anthony Jones PA-C - Last Filed: 09/25/20 18:59> Stated complaint: I think i have a uti sent by <Anthony Jones PA-C - Last Filed: 09/25/20 18:59> Time Seen by Provider: 09/25/20 15:08 <Anthony Jones PA-C - Last Filed: 09/25/20 18:59> Related Data Home medications: Home Medications Medication Instructions Recorded Confirmed montelukast 10 mg PO DAILY 10/18/19 04/02/20 Flintstones Multivitamin 1 tablet PO DAILY 03/24/20 03/31/20 cetirizine [Zyrtec] 10 mg PO DAILY 03/24/20 04/02/20 <Anthony Jones PA-C - Last Filed: 09/25/20 18:59> Allergies/adverse reactions: Allergies Allergy/AdvReac Type Severity Reaction Status Date / Time orange Allergy Unknown Itching Verified 03/31/20 15:49 codeine Allergy Loss of Verified 03/31/20 15:49 Consciousness oxycodone AdvReac Unknown vomiting, Verified 03/31/20 15:49 syncope morphine AdvReac chest Verified 03/31/20 15:49 pressure <Anthony Jones PA-C - Last Filed: 09/25/20 18:59> PMF Past Medical History Medical History: Medical History Anxiety Asthma Depression Fibromyalgia GERD (gastroesophageal reflux disease) Hx of migraines <Anthony Jones PA-C - Last Filed: 09/25/20 18:59> Family History Family History: Family History Father Hypertension <DARIA Masterson Last Filed: 09/25/20 18:59> Social History Social History: Social History Smoking packs per day: 1.5 Smoking cigarettes per day: 30.0 Years smoked: 12 Smoking pack-years: 18.00 Smoking status: Former smoker Tobacco type: cigarettes Second hand tobacco smoke exposure: No Additional smoking assessment comments: quit 12 years ago Alcohol intake: never Substance use: former Substance use type: marijuana Last use: 16 years ago Gender identity (if verbalized by the patient): Female Spiritual care concerns: No <Anthony Jones PA-C - Last Filed: 09/25/20 18:59> Course Course Emergency Course: Patient in the room at this time feeling better with interventions afebrile nontoxic-appearing ABCs and vital signs intact and stable patient with likely ascending urinary tract infection no high risk changes in the imaging or the blood work patient advised to continue the antibiotic and to follow-up with Dr. Jaeger on Monday patient feels comfortable with this plan patient was given fluids antibiotics and medications in the emergency department with provement as noted <Anthony Jones PA-C - Last Filed: 09/25/20 18:59> Vital Signs Vital signs: Vital Signs Temperature 97.2 F L 09/25/20 15:06 Pulse Rate 99 09/25/20 15:06 Respiratory Rate 18 09/25/20 15:06 Blood Pressure 135/95 H 09/25/20 15:06 Pulse Oximetry 100 09/25/20 15:06 Temperature 97.2 F L 09/25/20 15:06 Pulse Rate 89 09/25/20 18:58 Respiratory Rate 18 09/25/20 18:58 Blood Pressure 136/89 09/25/20 18:58 Pulse Oximetry 100 09/25/20 18:58 <Anthony Jones PA-C - Last Filed: 09/25/20 18:59> Vital Signs Temperature 97.2 F L 09/25/20 15:06 Pulse Rate 99 09/25/20 15:06 Respiratory Rate 18 09/25/20 15:06 Blood Pressure 135/95 H 09/25/20 15:06 Pulse Oximetry 100 09/25/20 15:06 Temperature 97.2 F L 09/25/20 15:06 Pulse Rate 89 09/25/20 18:58 Respiratory Rate 18 09/25/20 18:58 Blood Pressure 136/89 09/25/20 18:58 Pulse Oximetry 100 09/25/20 18:58 <Zhanna Vera MD - Last Filed: 09/26/20 20:08> Medical Decision Making MDM Narrative Medical decision making narrative: Patient evaluated for concern for kidney stone and worsening urinary tract infection patient on arrival in no distress afebrile nontoxic-appearin
[2020-09-25 17:30] LABS: Anion Gap 7 mmol/L (8-16); Blood Urea Nitrogen 9 mg/dL (7-17); Calcium 8.8 mg/dL (8.4-10.2); Carbon Dioxide 24 mmol/L (22-30); Chloride 105 mmol/L (98-107); Estimated Glomerular Filt Rate > 60; Glucose 79 mg/dL (65-105); Potassium 3.9 mmol/L (3.4-5.0); Sodium 136 mmol/L (137-145)
[2020-09-25] MEDS: SODIUM CHLORIDE 0.9% IV 1,000 ML 999 ML IV CONT (17:31)
[2020-09-25] MEDS: FAMOTIDINE 20 MG/2 ML VIAL IV PUSH (17:33)
[2020-09-25 18:58] VITALS: BP 136/89; PULSE 89; RESP 18; O2SAT 100
[2020-09-25] MEDS: KETOROLAC 30 MG/ML VIAL (*BKC) IV PUSH (19:08)
== END 2020-09-25 19:09 | disposition home or self-care (01) ==
PROVIDERS: Emergency Medicine Emergency Medical Services; Emergency Provider General Practice; PCP Physician Assistant
DX: N39.0 Urinary tract infection, site not specified (principal); J45.909 Unspecified asthma, uncomplicated; M79.7 Fibromyalgia; K21.9 Gastro-esophageal reflux disease without esophagitis; Z87.891 Personal history of nicotine dependence
CPT/HCPCS: 36415; 74176; 80048; 81001; 81025; 85025; 87086; 96361; 96365; 96375; 99284; J0131; J0696; J1885; J7030

== ENCOUNTER 2021-05-21 14:34 | Outpatient (CLI) | payer OTHER, SELFPAY ==
--- NOTE | ~2021-05-21 | MR_ITS ---
EXAMINATION: MR pituitary wo/w con DATE: 05/21/2021 16:03 INDICATION: Hyperprolactinemia. TECHNIQUE: Magnetic resonance imaging (MRI) of the brain and brainstem was performed without and with 15 mL MultiHance intravenous contrast. Whole-brain sequences included sagittal T1-weighted FSE, axia l diffusion-weighted FS EPI, axial T2*-weighted GRE, axial T2-weighted FLAIR Propeller, and axial T2- weighted Propeller. Small kvbiz-xl-obcu sequences included sagittal and coronal T1-weighted FSE cente red at the pituitary. Postcontrast sequences included small [id number]-[id number]-[id number] coronal T1-weighted FSE in a time course and sagittal T1-weighted FSE and whole-brain axial T1-weighted FSE. Apparent diffusion coefficient (ADC) maps were created. COMPARISON: None. FINDINGS: There is no intracranial hemorrhage, acute infarction, or abnormal intracranial mass lesion . The pituitary is normal in size with concave superior margin. The infundibulum is at the midline. T he paranasal sinuses are clear. The mastoid air cells are normal. The orbits are normal. IMPRESSION: 1. Normal brain. Normal pituitary. Reviewed, dictated and finalized at location A. ICKMAN HELPER
[2021-05-21 15:19] LABS: Estimated Glomerular Filt Rate > 60
== END 2021-05-21 14:35 | disposition home or self-care (01) ==
PROVIDERS: PCP Family Medicine; Visit Provider Obstetrics & Gynecology
DX: E22.1 Hyperprolactinemia (principal)
CPT/HCPCS: 70553; A9577

== ENCOUNTER 2021-07-06 16:43 | Emergency (ER) | payer OTHER, SELFPAY ==
--- NOTE | ~2021-07-06 | XR_ITS ---
EXAMINATION: XR chest 2V DATE: 07/06/2021 22:11 INDICATION: Medial chest pain. Shortness of breath. TECHNIQUE: Frontal and lateral views of the chest were obtained. COMPARISON: CT abdomen and pelvis 09/25/2020 FINDINGS: The chest demonstrates clear lungs without pneumonia, pleural effusion, or pneumothorax. Th e heart size is normal. IMPRESSION: 1. No acute cardiopulmonary disease. Reviewed, dictated and finalized at location A. Y LEVEL ACCOUNT REPRESENTATIVE
[2021-07-06 17:28] VITALS: BP 125/89; PULSE 98; RESP 18; TEMP 36.2; O2SAT 96
[2021-07-06 19:47] VITALS: BP 113/74; PULSE 96; TEMP 36.2; O2SAT 98
--- NOTE | 2021-07-06 21:51 | ECG_ITS ---
Measurements Intervals [place] Rate: 85 P: 42 LA: 155 QRS: 9 QRSD: 80 T: 24 QT: 355 QTc: 422 Interpretive Statements SINUS RHYTHM VOLTAGE CRITERIA FOR LVH MINIMAL Q WAVES- HIGH LATERAL LEADS BASELINE WANDER- I, II BORDERLINE ECG Electronically Signed On 07-07-2021 6:40:13 MENTAL RETARDATION AIDE by Kar Moore D.O.
[2021-07-06 23:36] LABS: Basophils Percent Auto 0.4 % (0.2-1.2); Eosinophils Absolute Auto 0.1 K/mm3 (0-0.3); Eosinophils Percent Auto 0.9 % (0-4.4); Hematocrit 43.2 % (37.0-47.0); Hemoglobin 13.8 g/dL (12.0-15.0); Immature Granulocyte Absolute 0.03 K/mm3 (0.00-0.031); Immature Granulocyte Percent A 0.3 % (0-0.5); Lymphocytes Absolute Auto 2.93 K/mm3 (0.9-3.2); Lymphocytes Percent Auto 30.6 % (18.3-44.2); Mean Corpuscular HGB Conc 31.9 g/dl (32-36); Mean Corpuscular Hemoglobin 29.4 pg (26-34); Mean Corpuscular Volume 92.1 fl (80-100); Mean Platelet Volume 8.8 fl (7.4-10.4); Monocytes Absolute Auto 1.1 K/mm3 (0.1-0.6); Monocytes Percent Auto 11.7 % (2.6-8.5); Neutrophils Absolute Auto 5.4 K/mm3 (1.3-6.7); Neutrophils Percent Auto 56.1 % (45.5-73.1); Platelet Count Result 381 k/mm3 (150-375); Red Blood Count 4.69 M/mm3 (4.2-5.4); Red Cell Distribution Width 13.8 % (11.5-14.5); White Blood Count 9.6 K/mm3 (4.5-10.0)
[2021-07-07 00:01] LABS: D Dimer 0.27 ug/mL (<0.48)
[2021-07-07 00:31] LABS: Anion Gap 11 mmol/L (8-16); Blood Urea Nitrogen 13 mg/dL (7-17); Calcium 9.2 mg/dL (8.4-10.2); Carbon Dioxide 29 mmol/L (22-30); Chloride 99 mmol/L (98-107); Estimated Glomerular Filt Rate > 60; Glucose 102 mg/dL (65-110); Potassium 3.6 mmol/L (3.4-5.0); Sodium 139 mmol/L (137-145)
--- NOTE | 2021-07-07 00:42 | ED.GENADULT ---
HPI - General Adult General Chief complaint: Upper Respiratory Infection Stated complaint: recent covid, congestion, cp Time Seen by Provider: 07/06/21 21:39 History of Present Illness HPI narrative: Patient is a 36-year-old female who presents ER with chest discomfort. Patient diagnosed with COVID-19 2 weeks ago. She began feeling better and then 4 days ago started having nasal congestion and chest productive of phlegm. Has pain with deep breath at times. No hemoptysis. No lower extremity swelling. No history of PE. Denies additional fevers or chills or sweats. She has been having body aches. She is taking no [id number] pain medication to try to resolve her discomfort. No other alleviating or aggravating factors. Denies history of coronary disease. No exertional chest pain. Related Data Home Medications Medication Instructions Recorded Confirmed montelukast 10 mg PO DAILY 10/18/19 04/02/20 Flintstones Multivitamin 1 tablet PO DAILY 03/24/20 03/31/20 cetirizine [Zyrtec] 10 mg PO DAILY 03/24/20 04/02/20 Allergies Allergy/AdvReac Type Severity Reaction Status Date / Time orange Allergy Unknown Itching Verified 03/31/20 15:49 codeine Allergy Loss of Verified 03/31/20 15:49 Consciousness oxycodone AdvReac Unknown vomiting, Verified 03/31/20 15:49 syncope morphine AdvReac chest Verified 03/31/20 15:49 pressure Review of Systems Review of Systems: All systems reviewed & are unremarkable except as noted in HPI and below Constitutional: Constitutional: Denies chills, Denies fever(s) and Denies weakness ENT: Denies nasal congestion and Denies sore throat Cardiovascular: Cardiovascular: Reports chest pain, Denies rapid heart rate and Denies radiating jaw, neck or arm pain Respiratory: Respiratory: Reports chest congestion, Reports cough, Denies dyspnea and Denies wheezing Gastrointestinal: Gastrointestinal: Denies abdominal pain, Denies nausea and Denies vomiting Musculoskeletal: Musculoskeletal: Reports myalgias, Denies arthralgias and Denies joint swelling PMFSH Past Medical History Medical History (Updated 07/07/21 @ 00:47 by Manpreet Abel MD) Anxiety Asthma Depression Fibromyalgia GERD (gastroesophageal reflux disease) Hx of migraines Surgical History Surgical History (Updated 07/07/21 @ 00:44 by Manpreet Abel MD) H/O dilation and curettage Family History Family History Father Hypertension Social History Social History Smoking packs per day: 1.5 Smoking cigarettes per day: 30.0 Years smoked: 12 Smoking pack-years: 18.00 Smoking status: Former smoker Tobacco type: cigarettes Second hand tobacco smoke exposure: No Additional smoking assessment comments: quit 12 years ago Alcohol intake: never Alcohol use details: socially Substance use: former Substance use type: marijuana Last use: 16 years ago Gender identity (if verbalized by the patient): Female Spiritual care concerns: No Exam Narrative: GENERAL: Well-appearing, well-nourished, and in no acute distress. HEAD: Normocephalic, atraumatic. NECK: Supple. CHEST: Clear to auscultation. No respiratory distress. HEART: Regular rate and rhythm. Normal peripheral pulses. EXTREMITIES: Normal range of motion. No edema. SKIN: Warm, dry, no rash. NEURO: Alert and oriented x3. PSYCH: Normal mood and affect. Course Course Emergency Course: Labs unremarkable. Chest x-ray negative. Symptoms felt to be musculoskeletal in nature. Recommend scheduled anti-inflammatories. Vital Signs Vital signs: Vital Signs Temperature 97.2 F L 07/06/21 17:28 Pulse Rate 98 07/06/21 17:28 Respiratory Rate 18 07/06/21 17:28 Blood Pressure 125/89 07/06/21 17:28 Pulse Oximetry 96 07/06/21 17:28 Temperature 97.2 F L 07/06/21 19:47 Pulse Rate 96 07/06/21 19
[2021-07-07 00:45] LABS: Troponin I < 0.012 ng/mL (0.000-0.034)
[2021-07-07] MEDS: KETOROLAC 30 MG/ML VIAL (*BKC) IM (00:47)
[2021-07-07 01:09] VITALS: BP 111/76; RESP 18; O2SAT 100
== END 2021-07-07 01:11 | disposition home or self-care (01) ==
PROVIDERS: Emergency Provider Emergency Medicine; PCP Family Medicine
DX: R07.89 Other chest pain (principal); Z86.16 Personal history of COVID-19; J45.909 Unspecified asthma, uncomplicated; M79.7 Fibromyalgia; K21.9 Gastro-esophageal reflux disease without esophagitis; Z87.891 Personal history of nicotine dependence; R94.31 Abnormal electrocardiogram [ECG] [EKG]
CPT/HCPCS: 36415; 71046; 80048; 84484; 85025; 85380; 93005; 96372; 99284; J1885

== ENCOUNTER → 2022-01-07 16:20 | Outpatient (CLI) | payer OTHER, SELFPAY ==
--- NOTE | ~2022-01-07 | XR_ITS ---
XR abdomen obstructive series DATE: 01/07/2022 17:00 INDICATION: Constipation TECHNIQUE: Supine and upright AP views COMPARISON: 10/05/2020 CT abdomen pelvis FINDINGS: There is no evidence of bowel obstruction or intraperitoneal free air. No visceromegaly or abnormal calcification is evident. Lung bases appear clear. Included skeletal structures are unremarkable. IMPRESSION: No significant abnormality Reviewed, dictated and finalized at Location [facility]. Reviewed, dictated and finalized at location B. IMPRESSION: No significant abnormality
== END ==
DX: K59.09 Other constipation (principal)
CPT/HCPCS: 74019

== ENCOUNTER → 2022-01-14 10:34 | Outpatient (CLI) | payer OTHER, SELFPAY ==
--- NOTE | ~2022-01-14 | CT_ITS ---
EXAMINATION: CT abdomen pelvis w con DATE: 01/14/2022 11:38 INDICATION: Right lower quadrant pain. Irregular bowel movements. TECHNIQUE: Computed tomography (CT) of the abdomen and pelvis was performed with 100 cc Omnipaque 350 intravenous contrast. The dose-length product was 829.24 mGy-cm. Automated exposure control and iter ative reconstruction technique were employed. COMPARISON: CT dated 09/25/2020 FINDINGS: There is a 5 mm right middle lobe nodule, image 1. Heart size normal. No significant pleura l or pericardial effusion. The liver, spleen, pancreas, adrenal glands and kidneys are unremarkable. Gallbladder is present. Non obstructive bowel pattern. There are multiple nabothian cysts. Colonic diverticulosis without evidenc e for acute diverticulitis. No significant vascular abnormality. No lymphadenopathy. Mildly prominent left ovarian vein. No free air or free fluid. No acute osseous abnormality. The appendix is not posi tively visualized. There is no pericecal inflammatory change to suggest appendicitis. IMPRESSION: 1. No acute abdominal abnormality. 2: Right middle lobe nodule measuring 5 mm, likely benign. Follow-up low dose CT chest in 12 months r ecommended. Reviewed, dictated and finalized at location A. IMPRESSION: 1. No acute abdominal abnormality. 2: Right middle lobe nodule measuring 5 mm, likely benign. Follow-up low dose C T chest in 12 months recommended.
== END ==
DX: R10.31 Right lower quadrant pain (principal); R91.8 Other nonspecific abnormal finding of lung field
CPT/HCPCS: 74177; Q9967

== ENCOUNTER 2022-02-04 19:55 | Emergency (ER) | payer OTHER, SELFPAY ==
--- NOTE | ~2022-02-04 | XR_ITS ---
EXAMINATION: XR chest 2V DATE: 02/04/2022 20:33 INDICATION: Chest pain. Palpitations. TECHNIQUE: Frontal and lateral views of the chest were obtained. COMPARISON: Chest 2 views 07/06/2021, CT abdomen and pelvis 01/14/2022 FINDINGS: There are airspace opacities in the lower lung zones. No pleural effusion or pneumothorax. The heart size is normal. IMPRESSION: 1. Airspace opacities in the lower lung zones, consistent with atelectasis versus pneumonia. Reviewed, dictated and finalized at location A. IMPRESSION: 1. Airspace opacities in the lower lung zones, consistent with atelectasis vers us pneumonia.
--- NOTE | 2022-02-04 20:03 | ECG_ITS ---
Measurements Intervals [place] Rate: 96 P: 144 MN: 145 QRS: -24 QRSD: 80 T: -28 QT: 332 QTc: 421 Interpretive Statements SINUS RHYTHM BORDERLINE LEFT AXIS DEVIATION [QRS AXIS < -20] COMPARED TO ECG 07/06/2021 23:23:09 NO SIGNIFICANT CHANGES Electronically Signed On 02-05-2022 13:36:07 CDT by Caitlin Rizo M.D.
[2022-02-04 20:33] LABS: Basophils Absolute Auto 0.1 K/mm3 (0.0-0.1); Basophils Percent Auto 0.4 % (0.2-1.2); Eosinophils Absolute Auto 0.1 K/mm3 (0-0.3); Eosinophils Percent Auto 0.6 % (0-4.4); Hematocrit 42.9 % (37.0-47.0); Hemoglobin 13.7 g/dL (12.0-15.0); Immature Granulocyte Absolute 0.04 K/mm3 (0.00-0.031); Immature Granulocyte Percent A 0.3 % (0-0.5); Lymphocytes Absolute Auto 2.77 K/mm3 (0.9-3.2); Lymphocytes Percent Auto 19.8 % (18.3-44.2); Mean Corpuscular HGB Conc 31.9 g/dl (32-36); Mean Corpuscular Hemoglobin 29.2 pg (26-34); Mean Corpuscular Volume 91.5 fl (80-100); Mean Platelet Volume 9.2 fl (7.4-10.4); Neutrophils Absolute Auto 10.1 K/mm3 (1.3-6.7); Neutrophils Percent Auto 71.9 % (45.5-73.1); Platelet Count Result 380 k/mm3 (150-375); Red Blood Count 4.69 M/mm3 (4.2-5.4); Red Cell Distribution Width 13.5 % (11.5-14.5)
[2022-02-04 20:42] LABS: Alanine Aminotransferase 20 U/L (6-35); Albumin Level 4.3 g/dL (3.5-5.1); Alkaline Phosphatase 102 U/L (38-126); Anion Gap 11 mmol/L (8-16); Aspartate Amino Transferase 26 U/L (14-36); Bilirubin,Total 0.2 mg/dL (0.2-1.3); Blood Urea Nitrogen 12 mg/dL (7-17); Calcium 9.2 mg/dL (8.4-10.2); Carbon Dioxide 23 mmol/L (22-30); Chloride 104 mmol/L (98-107); Estimated Glomerular Filt Rate > 60; Glucose 116 mg/dL (65-110); Lipase 85 U/L (23-300); Potassium 3.7 mmol/L (3.4-5.0); Prothrombin Time 12.5 Seconds (11.1-14.7); Sodium 138 mmol/L (137-145)
[2022-02-04 20:43] LABS: Partial Thromboplastin Time 23.2 SECONDS (22.3-36.8)
[2022-02-04 20:54] LABS: Troponin I < 0.012 ng/mL (0.000-0.034)
[2022-02-04 21:01] VITALS: BP 134/77; PULSE 109; RESP 20; TEMP 36.5; O2SAT 98
[2022-02-04 21:52] VITALS: BP 121/85; PULSE 91; RESP 13; O2SAT 98
[2022-02-04 22:01] VITALS: BP 116/79; PULSE 78; RESP 18; O2SAT 97
[2022-02-04 22:31] VITALS: BP 123/94; PULSE 90; RESP 24
[2022-02-04] MEDS: SODIUM CHLORIDE 0.9% IV 1,000 ML 999 ML IV CONT (22:40)
[2022-02-04] MEDS: ASPIRIN 81 MG CHEWABLE TABLET 324 MG PO (22:40)
[2022-02-04 22:56] LABS: D Dimer 0.41 ug/mL (<0.48)
[2022-02-04 23:02] VITALS: BP 110/74; PULSE 90; RESP 17
[2022-02-04 23:25] LABS: Appearance Urine Clear (Clear); Bilirubin Urine Negative (Negative); Blood Urine Negative (Negative); Color Urine Yellow (Yellow); Glucose Urine UA Negative (Negative); Ketones Urine Trace mg/dL (Negative); Leukocyte Esterase Ur Negative LEU/UL (Negative); Nitrate Urine Negative (Negative); Protein Urine Negative (Negative); Specific Grav Ur >= 1.030 (1.001-1.035); Urobilinogen Urine 0.2 mg/dL (<2.0)
[2022-02-04 23:34] LABS: Mucus Urine Rare /lpf; RBC Urine 0-2 /hpf (0-2); Squamous Epithelial Cell Urine Few /hpf (Few); WBC Urine 0-3 /hpf
[2022-02-04 23:35] LABS: Add Urine Microscopic? YES
[2022-02-04 23:47] LABS: Troponin I < 0.012 ng/mL (0.000-0.034)
[2022-02-05 00:01] VITALS: BP 108/70; PULSE 77; RESP 15; O2SAT 97
--- NOTE | 2022-02-05 00:15 | ED.GENADULT ---
HPI - General Adult General Chief complaint: Arrhythmia/Palpitations Stated complaint: palpitations with dizziness Time Seen by Provider: 02/04/22 21:48 Source: RN notes reviewed History of Present Illness HPI narrative: Patient presents emergency room from home for heart palpitations. Patient states that palpitations began yesterday. States that she is having episodes where she feels like her heart is racing. During his episodes the patient states she does feel dizziness as well as some mild chest tightness and shortness of breath. States that episodes will last for approximate 5 to 10 minutes and resolved. States that that most recent episode occurred during sexual intercourse earlier today so she is also had episodes while working out and also will be nonactive. Patient states she was discharged on Zoloft this week and has been taking it she denies any fevers or chills cough abdominal pain vomiting or diarrhea she does note mild nausea with the episodes Related Data Home Medications Medication Instructions Recorded Confirmed montelukast 10 mg tablet 10 mg PO DAILY 10/18/19 04/02/20 cetirizine 10 mg tablet (Zyrtec) 10 mg PO DAILY 03/24/20 04/02/20 pediatric multivitamin 1 tablet PO DAILY 03/24/20 03/31/20 (Flintstones Multivitamin chewable tablet) Allergies Allergy/AdvReac Type Severity Reaction Status Date / Time orange Allergy Unknown Itching Verified 02/04/22 21:07 codeine Allergy Loss of Verified 02/04/22 21:07 Consciousness oxycodone AdvReac Unknown vomiting, Verified 02/04/22 21:07 syncope morphine AdvReac chest Verified 02/04/22 21:07 pressure Review of Systems Review of Systems: Gen.: Denies fevers or chills Eyes: Denies eye pain or visual change ENT: Denies reports shortness of breath CV: Reports palpitations GI: Denies abdominal pain emesis or diarrhea recent nausea Musculoskeletal: Denies back pain or muscle pain Neuro: D denies headache reports dizziness with episodes Skin: Denies rash Except as documented, all other systems reviewed and negative PMFSH Past Medical History Medical History Anxiety Asthma Depression Fibromyalgia GERD (gastroesophageal reflux disease) Hx of migraines Surgical History Surgical History (Updated 07/07/21 @ 00:44 by Manpreet Abel MD) H/O dilation and curettage Family History Family History Father Hypertension Social History Social History Smoking packs per day: 1.5 Smoking cigarettes per day: 30.0 Years smoked: 12 Smoking pack-years: 18.00 Smoking status: Former smoker Tobacco type: cigarettes Second hand tobacco smoke exposure: No Additional smoking assessment comments: quit 12 years ago Alcohol intake: never Alcohol use details: socially Substance use: former Substance use type: marijuana Last use: 16 years ago Gender identity (if verbalized by the patient): Female Spiritual care concerns: No Exam Narrative: APPEARANCE: No acute distress, nontoxic, resting in bed EYES: EOMI HEENT: Normocephalic, atraumatic, OMM RESPIRATORY: No respiratory distress Clear to auscultation bilaterally with no rhonchi wheezing or rales. CARDIOVASCULAR: Regular rate and rhythm without murmurs rubs or gallops. ABDOMINAL: Soft, nontender, nondistended, no rebound or guarding MUSCULOSKELETAl: Moves all extremities. No clubbing, cyanosis or edema. NEURO: Awake and alert X 4. Following commands, speech normal, no focal deficits SKIN:: Warm, dry. No rashes lesions or abrasions PSYCHIATRIC: Normal affect/mood, Course Course Emergency Course: Patient remained on rn cardiac cath throughout stay in ED no arrhythmias noted Following chest x-ray did discuss with the patient patient's had no fever she has had no cough believe this is likely atelectasis
[2022-02-05 00:35] VITALS: BP 108/70; PULSE 75; RESP 16; O2SAT 99
== END 2022-02-05 00:35 | disposition home or self-care (01) ==
PROVIDERS: Emergency Medicine; Emergency Provider Emergency Medicine
DX: R00.2 Palpitations (principal); J45.909 Unspecified asthma, uncomplicated; M79.7 Fibromyalgia; K21.9 Gastro-esophageal reflux disease without esophagitis; Z87.891 Personal history of nicotine dependence; R91.8 Other nonspecific abnormal finding of lung field; R94.31 Abnormal electrocardiogram [ECG] [EKG]
CPT/HCPCS: 36415; 71046; 80053; 81001; 81025; 83690; 84484; 85025; 85380; 85610; 85730; 93005; 96374; 99284; A9270; J7030

== ENCOUNTER 2022-05-19 15:15 | Emergency (ER) | payer OTHER, SELFPAY ==
--- NOTE | ~2022-05-19 | CT_ITS ---
EXAMINATION: CT abdomen pelvis w con DATE: 05/19/2022 21:13 INDICATION: Abdominal pain with nausea TECHNIQUE: Computed tomography (CT) of the abdomen and pelvis was performed with 100 cc Omnipaque 350 intravenous contrast. The dose-length product was 716.83 mGy-cm. Automated exposure control and iter ative reconstruction technique were employed. COMPARISON: CT dated 01/14/2022. FINDINGS: There is a 3 mm pleural-based left lower lobe nodule, likely benign. Heart size is normal. No significant pleural or pericardial effusion. No significant vascular abnormality. No lymphadenopat hy. There are hypodense masses in the lower uterine segment, likely fibroids, largest measuring 2.2 c m. The liver, spleen, pancreas, adrenal glands and kidneys are unremarkable. Gallbladder is present. The re is a tampon in the vagina. Bladder is decompressed. No abnormal pelvic masses or fluid collections . No free air or free fluid. Nonobstructive bowel pattern. No acute osseous abnormality. IMPRESSION: 1. No acute abdominal abnormality. Reviewed, dictated and finalized at location A. HARDENER
[2022-05-19 15:18] VITALS: BP 131/79; PULSE 92; RESP 18; TEMP 36.4; O2SAT 98
[2022-05-19 16:00] LABS: Basophils Absolute Auto 0.1 K/mm3 (0.0-0.1); Basophils Percent Auto 0.6 % (0.2-1.2); Eosinophils Absolute Auto 0.1 K/mm3 (0-0.3); Eosinophils Percent Auto 1.1 % (0-4.4); Hematocrit 42.4 % (37.0-47.0); Hemoglobin 13.8 g/dL (12.0-15.0); Immature Granulocyte Absolute 0.02 K/mm3 (0.00-0.031); Immature Granulocyte Percent A 0.2 % (0-0.5); Lymphocytes Absolute Auto 2.81 K/mm3 (0.9-3.2); Lymphocytes Percent Auto 32.2 % (18.3-44.2); Mean Corpuscular HGB Conc 32.5 g/dl (32-36); Mean Corpuscular Hemoglobin 29.4 pg (26-34); Mean Corpuscular Volume 90.4 fl (80-100); Mean Platelet Volume 9.3 fl (7.4-10.4); Monocytes Absolute Auto 0.7 K/mm3 (0.1-0.6); Monocytes Percent Auto 8.1 % (2.6-8.5); Neutrophils Percent Auto 57.8 % (45.5-73.1); Platelet Count Result 380 k/mm3 (150-375); Red Blood Count 4.69 M/mm3 (4.2-5.4); Red Cell Distribution Width 13.6 % (11.5-14.5); White Blood Count 8.7 K/mm3 (4.5-10.0)
[2022-05-19 16:11] LABS: Alanine Aminotransferase 16 U/L (6-35); Albumin Level 4.3 g/dL (3.5-5.1); Alkaline Phosphatase 86 U/L (38-126); Anion Gap 8 mmol/L (8-16); Aspartate Amino Transferase 21 U/L (14-36); Bilirubin,Total 0.2 mg/dL (0.2-1.3); Blood Urea Nitrogen 13 mg/dL (7-17); Calcium 8.9 mg/dL (8.4-10.2); Carbon Dioxide 26 mmol/L (22-30); Chloride 102 mmol/L (98-107); Estimated Glomerular Filt Rate > 60; Glucose 105 mg/dL (65-110); Lipase 62 U/L (23-300); Potassium 4.3 mmol/L (3.4-5.0); Sodium 136 mmol/L (137-145)
--- NOTE | 2022-05-19 19:29 | ED.ABDPAIN ---
HPI - Abdominal Pain General Chief Complaint: Headache Stated Complaint: migraine Time Seen by Provider: 05/19/22 19:03 History of Present Illness HPI narrative: This is a 36-year-old female with past medical history of miscarriage in 2019 status post D&C, who presents emergency department complaining abdominal tenderness and nausea beginning today. This morning patient noted diffuse abdominal pain, described as cramping, primarily in the lower abdomen, occasionally radiating towards the bilateral legs. This is associated with nausea without vomiting or diarrhea. She states earlier this week she was diagnosed with a urinary tract infection and started on Macrobid. She has no other complaints today. Related Data Home Medications Medication Instructions Recorded Confirmed montelukast 10 mg tablet 10 mg PO DAILY 10/18/19 04/02/20 cetirizine 10 mg tablet (Zyrtec) 10 mg PO DAILY 03/24/20 04/02/20 pediatric multivitamin 1 tablet PO DAILY 03/24/20 03/31/20 (Flintstones Multivitamin chewable tablet) Allergies Allergy/AdvReac Type Severity Reaction Status Date / Time orange Allergy Unknown Itching Verified 05/19/22 18:35 codeine Allergy Loss of Verified 05/19/22 18:35 Consciousness oxycodone AdvReac Unknown vomiting, Verified 05/19/22 18:35 syncope morphine AdvReac chest Verified 05/19/22 18:35 pressure Review of Systems Review of Systems: CONSTITUTIONAL: Denies fever, chills, or sweats. EYES: Denies visual changes, redness, or discharge. ENT: Denies rhinorrhea, congestion, sore throat, or otalgia. CARDIOVASCULAR: Denies chest pain, palpitations, or edema. RESPIRATORY: Denies cough or dyspnea. GASTROINTESTINAL: Abdominal pain, nausea denies vomiting, or diarrhea. GENITOURINARY: Denies dysuria or hematuria. Last menstrual period beginning 3 days ago SKIN: Denies rash or itching. MUSCULOSKELETAL: Denies back pain, joint pain, or myalgia. NEUROLOGIC: Denies headache, numbness, dizziness, or weakness. PSYCHIATRIC: Denies anxiety or depression. [facility] Past Medical History Medical History Anxiety Asthma Depression Fibromyalgia GERD (gastroesophageal reflux disease) Hx of migraines Surgical History Surgical History H/O dilation and curettage Family History Family History Father Hypertension Social History Social History Smoking packs per day: 1.5 Smoking cigarettes per day: 30.0 Years smoked: 12 Smoking pack-years: 18.00 Smoking status: Former smoker Tobacco type: cigarettes Second hand tobacco smoke exposure: No Additional smoking assessment comments: quit 12 years ago Alcohol intake: never Alcohol use details: socially Substance use: former Substance use type: marijuana Last use: 16 years ago Gender identity (if verbalized by the patient): Female Spiritual care concerns: No Exam Narrative: GENERAL: Well-appearing, well-nourished, and in no acute distress. HEAD: Normocephalic, atraumatic. EYES: PERRLA and EOMI. ENT: Nares clear, no rhinorrhea or epistaxis. Mucous membranes moist. Oropharynx without tonsillar hypertrophy exudate or other lesions. Bilateral TMs pearly leon nonbulging NECK: Supple. No adenopathy or masses. No carotid bruits or JVD CHEST: Clear to auscultation. No respiratory distress. No wheezes rales or rhonchi HEART: Regular rate and rhythm. No murmur heard. Normal peripheral pulses. ABDOMEN: Soft, minimal diffuse tenderness palpation greatest in the suprapubic region, nondistended, normal active bowel sounds. Mild left CVA tenderness to palpation EXTREMITIES: Normal range of motion. No edema. SKIN: Warm, dry, no rash. NEURO: No focal deficits. Alert and oriented x3. PSYCH: Normal mood and affect. Course Cours
[2022-05-19 20:59] LABS: Appearance Urine Clear (Clear); Bilirubin Urine Negative (Negative); Blood Urine 1+ (Negative); Color Urine Yellow (Yellow); Glucose Urine UA Negative (Negative); Ketones Urine Negative (Negative); Leukocyte Esterase Ur Negative LEU/UL (Negative); Nitrate Urine Negative (Negative); Protein Urine Negative (Negative); Specific Grav Ur 1.025 (1.001-1.035); Urobilinogen Urine 0.2 mg/dL (<2.0)
[2022-05-19 21:01] LABS: Bacteria Urine Trace /hpf; Mucus Urine Rare /lpf; Squamous Epithelial Cell Urine Moderate /hpf (Few); WBC Urine 0-3 /hpf
[2022-05-19 21:02] LABS: Add Urine Microscopic? YES
[2022-05-19] MEDS: KETOROLAC 30 MG/ML VIAL (*BKC) IV PUSH (22:25)
== END 2022-05-19 22:39 | disposition home or self-care (01) ==
PROVIDERS: Emergency Medicine; Emergency Provider Preventive Medicine Aerospace Medicine
DX: D25.9 Leiomyoma of uterus, unspecified (principal); J45.909 Unspecified asthma, uncomplicated; M79.7 Fibromyalgia; K21.9 Gastro-esophageal reflux disease without esophagitis; Z87.891 Personal history of nicotine dependence
CPT/HCPCS: 36415; 74177; 80053; 81001; 81025; 83690; 85025; 96374; 96375; 99284; J0131; J1885; Q9967

== ENCOUNTER 2022-07-04 12:02 | Emergency (ER) | payer OTHER, SELFPAY ==
--- NOTE | 2022-07-04 12:08 | ED.URI ---
HPI - URI/Sore Throat General Chief Complaint: Upper Respiratory Infection Stated Complaint: Congestion,Cough,Sore Throat Time Seen by Provider: 07/04/22 12:35 Source: patient and RN notes reviewed Mode of arrival: ambulatory Limitations: no limitations History of Present Illness HPI Narrative: 37-year-old female presents concern for 3-4 day history of cough, sore throat, nasal congestion. She reports violent coughing fits that caused her to vomit. She reports she had a COVID infection about 1 month ago and also had fluid within the last 2 months. She reports she tried Mucinex DM without relief MD elicited complaint: cough and sore throat Related Data Home Medications Medication Instructions Recorded Confirmed montelukast 10 mg tablet 10 mg PO DAILY 10/18/19 07/04/22 cetirizine 10 mg tablet (Zyrtec) 10 mg PO DAILY 03/24/20 07/04/22 oxybutynin chloride 5 mg 5 mg PO DAILY 07/04/22 07/04/22 tablet,extended release 24 hr Allergies Allergy/AdvReac Type Severity Reaction Status Date / Time orange Allergy Unknown Itching Verified 07/04/22 12:14 codeine Allergy Loss of Verified 07/04/22 12:14 Consciousness oxycodone AdvReac Unknown vomiting, Verified 07/04/22 12:14 syncope morphine AdvReac chest Verified 07/04/22 12:14 pressure Review of Systems Review of Systems: CONSTITUTIONAL: Denies malaise, chills, sweats, or fever. EYES: Denies visual changes, redness, or discharge. ENT: Reports rhinorrhea, congestion, sore throat. Denies sinus pain, otalgia CARDIOVASCULAR: Denies chest pain, palpitations, or edema. RESPIRATORY: Reports cough. Denies dyspnea. GASTROINTESTINAL: Denies abdominal pain, nausea, vomiting, diarrhea SKIN: Denies rash or itching. MUSCULOSKELETAL: Denies myalgia. NEUROLOGIC: Denies headache. All systems reviewed & are unremarkable except as noted in HPI and below PMFSH Past Medical History Medical History Anxiety Asthma Depression Fibromyalgia GERD (gastroesophageal reflux disease) Hx of migraines Surgical History Surgical History H/O dilation and curettage Family History Family History Father Hypertension Social History Social History Smoking packs per day: 1.5 Smoking cigarettes per day: 30.0 Years smoked: 12 Smoking pack-years: 18.00 Smoking status: Former smoker Tobacco type: cigarettes Second hand tobacco smoke exposure: No Additional smoking assessment comments: quit 12 years ago Alcohol intake: never Alcohol use details: socially Substance use: former Substance use type: marijuana Last use: 16 years ago Gender identity (if verbalized by the patient): Female Spiritual care concerns: No Comments At time of signature, agree with nursing past medical, surgical, social and family history. There is no relevant family history pertinent to the presenting complaint Exam Narrative: GENERAL: Well-appearing, well-nourished, and in no acute distress. HEAD: Normocephalic EYES: PERRLA, conjunctivae clear ENT: Nares clear, turbinates edematous and erythematous, clear discharge. Mucous membranes moist. TM pearly leon with dull light reflex bilaterally; no tragal tenderness. Oropharynx not erythematous without lesions. Tonsils not enlarged and without exudate, no drooling, no hoarseness, no trismus, uvula midline. NECK: Supple. No lymphadenopathy CHEST: Clear to auscultation, breath sounds equal. No wheezing, rhonchi, rales, or stridor. No respiratory distress, speaks in full sentences. HEART: Regular rate and rhythm. No murmur heard. SKIN: Warm, dry, no rash. NEURO: Alert and oriented x3. PSYCH: Normal mood and affect Course Course Emergency Course: Patient is aware of diagnosis, understands and agrees to treatment fan
[2022-07-04 12:11] VITALS: BP 113/82; PULSE 113; RESP 18; TEMP 36.7; O2SAT 99
== END 2022-07-04 14:14 | disposition home or self-care (01) ==
PROVIDERS: Emergency Provider Nurse Practitioner; PCP Family Medicine
DX: J40 Bronchitis, not specified as acute or chronic (principal); Z87.891 Personal history of nicotine dependence
CPT/HCPCS: 87081; 87880; 99213; G0463

== ENCOUNTER → 2022-07-25 15:40 | Outpatient (CLI) | payer OTHER, SELFPAY ==
--- NOTE | ~2022-07-25 | XR_ITS ---
EXAMINATION: XR chest 2V DATE: 07/25/2022 15:56 INDICATION: Subacute cough TECHNIQUE: frontal and lateral views of the chest were obtained. COMPARISON: Chest radiograph dated 02/04/2022 FINDINGS: The lungs are clear with no focal airspace opacities, pulmonary edema, pleural effusion or pneumothor ax. Heart size is normal. Left paracardial fat pad. Mild thoracic spondylosis. IMPRESSION: 1. No acute cardiopulmonary disease. Reviewed, dictated and finalized at location A. TER OPERATOR
== END ==
PROVIDERS: PCP Family Medicine; Visit Provider Family Medicine
DX: R05.2 Subacute cough (principal)
CPT/HCPCS: 71046

== ENCOUNTER 2022-09-10 11:05 | Outpatient (RCR) | payer OTHER, SELFPAY ==
[2022-09-10] MEDS: RHO(D) IMMUNE GLOBULIN 300 MCG/2 ML SYRINGE IM (10:39)
== END 2022-12-07 23:59 | disposition home or self-care (01) ==
LOC: ANHLAB 11:05
PROVIDERS: PCP Family Medicine; Visit Provider Advanced Practice Midwife
DX: O20.0 Threatened abortion (principal); Z29.13 Encounter for prophylactic Rho(D) immune globulin; O36.0190 Maternal care for anti-D [Rh] antibodies, unspecified trimester, not applicable or unspecified; Z3A.00 Weeks of gestation of pregnancy not specified
CPT/HCPCS: 36415; 84702; 85461; 86850; 86900; 86901; 90384; J2790

== ENCOUNTER 2023-02-08 17:05 | Outpatient (RCR) | payer OTHER, SELFPAY ==
[2023-02-06 17:23] LABS: Beta HCG Quantitative 41.69 mIU/ML
[2023-02-08] MEDS: RHO(D) IMMUNE GLOBULIN 300 MCG/2 ML SYRINGE IM (16:52)
[2023-02-08 18:11] LABS: Beta HCG Quantitative 16.76 mIU/ML
== END 2023-05-07 23:59 | disposition home or self-care (01) ==
LOC: ANHLAB 17:05
PROVIDERS: PCP Family Medicine; Visit Provider Obstetrics & Gynecology
DX: O20.0 Threatened abortion (principal); Z29.13 Encounter for prophylactic Rho(D) immune globulin; Z3A.00 Weeks of gestation of pregnancy not specified
CPT/HCPCS: 36415; 84702; 85461; 86850; 86900; 86901; 90384; 96372; J2790

== ENCOUNTER 2023-03-31 12:20 | Observation (INO) | payer OTHER, SELFPAY ==
--- NOTE | ~2023-03-31 | US_ITS ---
US OB <=14 wk fetus w TV 03/31/2023 18:21 Indication: Vaginal bleeding. Pain with . Procedure: Realtime transvaginal and transabdominal obstetrical ultrasound Comparison: No prior studies for comparison. Findings: Uterus measures 9.6 x 6 x 5.1 cm. Endometrium is thickened measuring 2.2 cm. There are nabo thian cysts. There is a small amount of free fluid in the pelvic cul-de-sac. No intrauterine gestatio nal sac or yolk sac are identified. Right ovary is normal measuring 2.9 x 1.4 x 1.7 cm. Left ovary me asures 4.8 x 2.9 x 3.4 cm and contains a cystic structure with some associated peripheral vascularity . No yolk sac or gestational sac are identified. Impression: 1: Complex partially cystic structure left ovary measuring 1.7 cm with peripheral vascularity. No int rauterine identified. Correlate with beta hCG levels. Differential diagnosis includes very early intrauterine , ectopic and failed . Recommend follow-up with serial quantitative beta-hCG levels and ultrasound as clinically warranted. Reviewed, dictated and finalized at location A. Impression: 1: Complex partially cystic structure left ovary measuring 1.7 cm with peripher al vascularity. No intrauterine identified. Correlate with beta hCG l evels. Differential diagnosis includes very early intrauterine , ectop ic and failed . Recommend follow-up with serial quantitative beta-hCG levels and ultrasound as clinically warranted.
[2023-03-31 12:57] VITALS: BP 149/101; PULSE 84; RESP 16; TEMP 36.7; O2SAT 100
--- NOTE | 2023-03-31 17:30 | ED.PREGNANCY ---
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 Patient reports she developed lower abdominal cramping, described as contraction-like around 845 this morning. Pain was fairly severe for approximately 1 hour before improving slightly. Pain has been intermittent since then. Radiates to back. She also reported nausea with the pain but denied vomiting. She took a test at home which was positive. She then prompted here. Her BRAZER HELPER INDUCTION is Dr. Bazzi. Patient is G6, P2 and notes a history of 2 previous miscarriages this year (August and January). She is unsure when her last menstrual cycle was as she has not had a full cycle since the miscarriages. She does report light vaginal spotting over the last several days, as well as dysuria. Denies hematuria, fevers, vomiting. Related Data Home Medications Medication Instructions Recorded Confirmed montelukast 10 mg tablet 10 mg PO DAILY 10/18/19 07/04/22 cetirizine 10 mg tablet (Zyrtec) 10 mg PO DAILY 03/24/20 07/04/22 oxybutynin chloride 5 mg 5 mg PO DAILY 07/04/22 07/04/22 tablet,extended release 24 hr Allergies Allergy/AdvReac Type Severity Reaction Status Date / Time orange Allergy Unknown Itching Verified 03/31/23 12:21 codeine Allergy Loss of Verified 03/31/23 12:21 Consciousness oxycodone AdvReac Unknown vomiting, Verified 03/31/23 12:21 syncope morphine AdvReac chest Verified 03/31/23 12:21 pressure Review of Systems Review of Systems: CONSTITUTIONAL: Denies fever, chills, or sweats. CARDIOVASCULAR: Denies chest pain. RESPIRATORY: Denies dyspnea. GASTROINTESTINAL: See HPI. GENITOURINARY: See HPI. SKIN: Denies rash or itching. MUSCULOSKELETAL: See HPI. NEUROLOGIC: Denies headache, numbness, or weakness. All systems reviewed & are unremarkable except as noted in HPI and below PMFSH Past Medical History Medical History Anxiety Asthma Depression Fibromyalgia GERD (gastroesophageal reflux disease) Hx of migraines Surgical History Surgical History H/O dilation and curettage Family History Family History Father Hypertension Social History Social History Smoking packs per day: 1.5 Smoking cigarettes per day: 30.0 Years smoked: 12 Smoking pack-years: 18.00 Smoking status: Former smoker Tobacco type: cigarettes Second hand tobacco smoke exposure: No Additional smoking assessment comments: quit 12 years ago Alcohol intake: never Alcohol use details: socially Substance use: former Substance use type: marijuana Last use: 16 years ago Occupation/Education: unemployed Gender identity (if verbalized by the patient): Female Spiritual care concerns: No Exam Narrative: GENERAL: Well appearing, obese with BMI of 33.6, non-toxic, in no acute distress. HEAD: Normocephalic, atraumatic. NECK: Supple. No adenopathy, no masses. RESPIRATORY: Airway patent, respirations nonlabored. Clear to auscultation bilaterally, no rales, rhonchi, wheezing. CARDIOVASCULAR: Regular rate and rhythm without murmurs, rubs, or gallops. Peripheral pulses 2+ and equal bilaterally. ABDOMINAL: Soft, tenderness in left and right lower abdomen reproducing pain, worse in LLQ. Nondistended, no hepatosplenomegaly. Normoactive BS. PELVIC: Normal external genitalia. Minimal amount of bleeding in vaginal vault. No hemorrhage or pooling of fluid. Small subcutaneous polyp in vaginal canal. No tissue seen on exam. Normal-
[2023-03-31 18:49] LABS: Basophils Percent Auto 0.4 % (0.2-1.2); Eosinophils Absolute Auto 0.1 K/mm3 (0-0.3); Eosinophils Percent Auto 0.8 % (0-4.4); Hematocrit 38.4 % (37.0-47.0); Hemoglobin 12.4 g/dL (12.0-15.0); Immature Granulocyte Absolute 0.02 K/mm3 (0.00-0.031); Immature Granulocyte Percent A 0.2 % (0-0.5); Lymphocytes Absolute Auto 2.66 K/mm3 (0.9-3.2); Lymphocytes Percent Auto 26.1 % (18.3-44.2); Mean Corpuscular HGB Conc 32.3 g/dl (32-36); Mean Corpuscular Hemoglobin 30.2 pg (26-34); Mean Corpuscular Volume 93.7 fl (80-100); Mean Platelet Volume 9.2 fl (7.4-10.4); Monocytes Absolute Auto 0.9 K/mm3 (0.1-0.6); Monocytes Percent Auto 8.7 % (2.6-8.5); Neutrophils Absolute Auto 6.5 K/mm3 (1.3-6.7); Neutrophils Percent Auto 63.8 % (45.5-73.1); Platelet Count Result 323 k/mm3 (150-375); Red Cell Distribution Width 13.9 % (11.5-14.5); White Blood Count 10.2 K/mm3 (4.5-10.0)
[2023-03-31 19:01] LABS: Alanine Aminotransferase 22 U/L (6-35); Albumin Level 3.8 g/dL (3.5-5.1); Alkaline Phosphatase 82 U/L (38-126); Anion Gap 5 mmol/L (8-16); Aspartate Amino Transferase 25 U/L (14-36); Bilirubin,Total 0.3 mg/dL (0.2-1.3); Blood Urea Nitrogen 13 mg/dL (7-17); Calcium 8.6 mg/dL (8.4-10.2); Carbon Dioxide 24 mmol/L (22-30); Chloride 105 mmol/L (98-107); Estimated CRCL calculation 86 ml/min; Estimated Glomerular Filt Rate > 60; Glucose 103 mg/dL (65-110); Lipase 94 U/L (23-300); Potassium 3.5 mmol/L (3.4-5.0); Sodium 134 mmol/L (137-145)
[2023-03-31] MEDS: ACETAMINOPHEN 500 MG TABLET 1000 MG PO (19:44)
[2023-03-31 19:45] VITALS: BP 111/95; PULSE 100; RESP 18; O2SAT 98
[2023-03-31 20:31] LABS: Appearance Urine Cloudy (Clear); Bacteria Urine None Seen /hpf; Bilirubin Urine Negative (Negative); Blood Urine 3+ (Negative); Color Urine Yellow (Yellow); Glucose Urine UA Negative (Negative); Ketones Urine Trace mg/dL (Negative); Leukocyte Esterase Ur 1+ LEU/UL (Negative); Need Manual Microscopic Reviewed; Nitrate Urine Negative (Negative); Protein Urine Trace mg/dL (Negative); Specific Grav Ur 1.021 (1.001-1.035); Squamous Epithelial Cell Urine Few /hpf (Few); WBC Urine 0-5 /hpf; pH Urine 6.5 (5.0-9.0)
[2023-03-31 20:36] LABS: Add Urine Microscopic? YES
[2023-03-31] MEDS: RHO(D) IMMUNE GLOBULIN 300 MCG/2 ML SYRINGE IM (23:07)
[2023-03-31 23:10] VITALS: BP 109/68; PULSE 94; RESP 18; TEMP 36.6; O2SAT 97
[2023-03-31 23:37] VITALS: BP 112/73; PULSE 89; RESP 20; TEMP 36.7; O2SAT 100; BMI 35.5
--- NOTE | 2023-03-31 23:48 | ADMGEN ---
This patient, Payton Coronado, was admitted to Medical Room 247-. Patient/family oriented to hospital policies and general routines including ID bracelet, bed and alarms, visiting hours, pain management, procedures, bathroom and other care routines, personal items, smoking policy, room service/diet, and visiting hours. Information on how to activate the Rapid Response Team has been discussed. Patient/Family are encouraged to report perceived risks to care and to ask questions if they do not understand what they are told or what they should do.
[2023-04-01 00:21] VITALS: PULSE 89; RESP 20; O2SAT 100
[2023-04-01 04:26] VITALS: BP 96/56; PULSE 86; RESP 20; TEMP 37.4; O2SAT 98
--- NOTE | 2023-04-01 10:14 | PM.IMHP ---
H&P: HPI History of Present Illness Date/Time: 04/01/23 10:14 Chief Complaint: Pelvic pain Narrative: this patient is a 37-year-old female presents emergency department with left lower quadrant/ left pelvis pain. Patient was evaluated emergency department. She was found have a cyst on her left ovary. It appeared to be a corpus luteum cyst. There was also a small complex structure containing the corpus luteum cyst. Pain is moderate. She is sitting up and talking today. She is sitting on the couch with her significant other. she is stable today. We had a lengthy discussion regarding her medical / obstetric situation. We talked about continued evaluation and determining the location of the . We agreed to a plan going forward. She does not need any pain control for home. She declined any narcotics due to reactions to narcotics. Again obtain hCG again today. We will repeat it she she again in 2 days. She will be seen in the office again in 2 days for ultrasound and discussion of treatment plan or observation. Review of Systems Review of Systems: All systems reviewed & are unremarkable except as noted in HPI and below Constitutional: Constitutional: Denies chills, Denies fatigue, Denies fever(s) and Denies weakness Eyes: Eyes: Denies blurry vision, Denies change in vision, Denies loss of peripheral vision, Denies loss of vision, Denies other visual disturbances and Denies eye pain ENT: Denies vertigo, Denies dizziness, Denies hearing loss, Denies mouth pain, Denies nasal obstruction, Denies neck mass and Denies neck pain Cardiovascular: Cardiovascular: Denies chest pain, Denies diaphoresis, Denies syncope, Denies leg edema and Denies dyspnea Respiratory: Respiratory: Denies chest congestion, Denies cough, Denies hemoptysis, Denies dyspnea and Denies wheezing Gastrointestinal: Gastrointestinal: Denies abdominal pain, Denies constipation, Denies diarrhea, Denies nausea and Denies vomiting Genitourinary: Genitourinary: Denies hematuria, Denies change in libido, Denies nocturia, Denies genital lesions, Denies flank pain and Denies urinary urgency Musculoskeletal: Musculoskeletal: Denies abnormal gait, Denies back pain, Denies myalgias, Denies arthralgias, Denies joint swelling, Denies muscle weakness and Denies neck pain Integumentary/Breasts: Skin/Breast: Denies swelling, Denies breast pain, Denies breast mass, Denies dry skin, Denies nipple discharge, Denies unusual bruising and Denies jaundice Neurologic: Denies Neuro-related abnormal movements, Denies Abnormal speech present, Denies abnormal gait, Denies behavioral changes, Denies confusion, Denies vertigo, Denies dizziness, Denies syncope, Denies loss of vision, Denies memory loss, Denies convulsions and Denies weakness Psychiatric: Psychiatric: Denies abnormal sleep pattern, Denies behavioral changes, Denies change in libido, Denies confusion, Denies depression, Denies anhedonia and Denies memory loss Endocrine: Endocrine: Reports no additional endocrine complaints, Denies change in libido and Denies fatigue Hematologic/Lymphatic: Hematologic/Lymphatic: Reports no additional hematologic/lymphatic complaints Allergic/Immunologic: Allergic/Immunologic: Reports no additional allergic/immunologic complaints and Denies wheezing PMFSH Past Medical History Medical History Anxiety Asthma Depression Fibromyalgia GERD (gastroesophageal reflux disease) Hx of migraines Surgical History Surgical History H/O dilation and curettage Family History Family History (Updated 03/31/23 @ 23:50 by Gerri Islas RN) Father Hypertension Prostate carcinoma Social History Social History Smoking packs per day: 1.5 Smoking cigarettes per day: 30.0 Years smoked: 12 Smoking pack-years: 18.00
--- NOTE | 2023-04-16 21:17 | P.DS_ITS ---
DS: Admitting Diagnosis Discharge Date 04/01/23 Admitting Diagnosis Pelvic pain DS: Discharge Diagnosis Discharge Diagnosis (1) Ovarian cyst in : Qualifiers: Trimester: first trimester Qualified Code(s): O34.81 - Maternal care for other abnormalities of pelvic organs, first trimester; N83.209 - Unspecified ovarian cyst, unspecified side Code(s): O34.80 - Maternal care for other abnormalities of pelvic organs, unspecified trimester; N83.209 - Unspecified ovarian cyst, unspecified side Status: Acute DS: Summary Hospital Course Hospital Course: this patient is a 37-year-old female presents emergency department with left lower quadrant/ left pelvis pain.? Patient was evaluated emergency department.? She was found have a cyst on her left ovary.? It appeared to be a corpus luteum cyst.? There was also? a small complex structure containing the corpus luteum cyst.? Pain is moderate.? She is sitting up and talking today.? She is sitting on the couch with her significant other. she is stable today.? We had a lengthy discussion regarding her medical / obstetric situation.? We talked about continued evaluation and determining the location of the .? We agreed to a plan going forward.? She does not need any pain control for home.? She declined any narcotics due to reactions to narcotics.? Again obtain hCG again today.? We will repeat it she she again in 2 days.? She will be seen in the office again in 2 days for ultrasound and discussion of treatment plan or observation. Time Spent with Patient Time attestation: Total time spent providing and/or coordinating discharge services: Discharge Plan Discharge Consulting providers: To [place] Discharging Clinician: Jacqueline Bazzi Patient Disposition: Home, Self-Care Activity: pelvic rest Diet: regular Patient Instructions: Antibiotic Form Stand Alone Forms: General Discharge Information Follow-up/Referrals: Jacqueline Bazzi MD [Physician] - Discharge Medications: Continued oxybutynin chloride 5 mg tablet extended release 24hr 5 mg PO QHS diphenhydramine HCl [Allergy (diphenhydramine)] 25 mg Capsule 50 mg PO QHS fluticasone propionate 50 mcg/actuation [place],Suspension 2 spray INTRANASAL QHS Rx Instructions: 2 SPRAYS PER NOSTRIL montelukast 10 mg tablet 10 mg PO QHS cetirizine [Zyrtec] 10 mg Tablet 10 mg PO QHS Date of admission: 03/31/23 19:43 Primary Care Provider: Rufus,Meseret Mccollum Admitting Provider: Jacqueline Bazzi Attending physician on admission: Jacqueline Bazzi Condition: Stable
== END 2023-04-01 15:23 | disposition home or self-care (01) ==
LOC: ANHED 22:36 → ANH2MED 23:12
PROVIDERS: Physician Assistant; Admitting Provider Obstetrics & Gynecology; Emergency Provider Physician Assistant; PCP Family Medicine; Visit Provider Obstetrics & Gynecology
DX: O26.851 Spotting complicating pregnancy, first trimester (principal); O36.80X1 Pregnancy with inconclusive fetal viability, fetus 1; O09.291 Supervision of pregnancy with other poor reproductive or obstetric history, first trimester; O26.21 Pregnancy care for patient with recurrent pregnancy loss, first trimester; O34.81 Maternal care for other abnormalities of pelvic organs, first trimester; N83.209 Unspecified ovarian cyst, unspecified side; Z3A.00 Weeks of gestation of pregnancy not specified
CPT/HCPCS: 36415; 76801; 76817; 80053; 81001; 83690; 84702; 85025; 85461; 86850; 86880; 86900; 86901; 90384; 96372; 99285; A9270; G0378; J2790

== ENCOUNTER 2023-04-03 08:22 | Outpatient (CLI) | payer OTHER, SELFPAY | END 2023-04-03 08:23 | disposition home or self-care (01) | LOC: ANHLAB 08:23 | PROVIDERS: PCP Family Medicine; Visit Provider Obstetrics & Gynecology | DX: O00.90 Unspecified ectopic pregnancy without intrauterine pregnancy (principal); Z3A.00 Weeks of gestation of pregnancy not specified | CPT/HCPCS: 36415; 84702 ==

== ENCOUNTER 2023-04-07 08:16 | Outpatient (RCR) | payer OTHER, SELFPAY | END 2023-07-06 23:59 | disposition home or self-care (01) | LOC: ANHLAB 08:16 | PROVIDERS: PCP Family Medicine; Visit Provider Advanced Practice Midwife | DX: O00.90 Unspecified ectopic pregnancy without intrauterine pregnancy (principal) | CPT/HCPCS: 36415; 84702 ==

== ENCOUNTER 2023-10-08 11:25 | Emergency (ER) | payer OTHER, SELFPAY ==
[2023-10-08 11:38] VITALS: BP 125/73; PULSE 92; RESP 16; TEMP 37; O2SAT 99
--- NOTE | 2023-10-08 11:49 | ED.EYEPROB ---
HPI - Eye Problem General Chief complaint: Eye Problems Stated complaint: both eyes discharge,tender,pressure Time Seen by Provider: 10/08/23 11:49 Source: patient Mode of arrival: ambulatory Limitations: no limitations History of Present Illness HPI Narrative: 38 y/o female presented for c/o left eye redness, drainage and itching. Onset yesterday morning. Endorses white and clear drainage throughout the day, and the eye had crust this morning. Starting to spread to right eye. Also reports headache surrounding left eye, nasal congestion, sore throat and ear pressure. Reports exposure to pink eye. Used anti-itch eye drops which caused burning. Denies eye injury, vision changes, headache, photophobia, dizziness, n/v/d/f/c. chief complaint: eye pain Related Data Home Medications Medication Instructions Recorded Confirmed montelukast 10 mg tablet 10 mg PO QHS 10/18/19 10/08/23 cetirizine 10 mg tablet (Zyrtec) 10 mg PO QHS 03/24/20 10/08/23 oxybutynin chloride 5 mg 5 mg PO QHS 07/04/22 10/08/23 tablet,extended release 24 hr diphenhydramine HCl 25 mg capsule 50 mg PO QHS 03/31/23 10/08/23 (Allergy (diphenhydramine)) fluticasone propionate 50 2 spray intranasal QHS 03/31/23 10/08/23 mcg/actuation nasal spray,suspension Allergies Allergy/AdvReac Type Severity Reaction Status Date / Time codeine Allergy Severe Loss of Verified 10/08/23 11:34 Consciousness orange Allergy Intermediate Itching Verified 10/08/23 11:34 morphine AdvReac Intermediate chest Verified 10/08/23 11:34 pressure oxycodone AdvReac Intermediate vomiting, Verified 10/08/23 11:34 syncope Review of Systems Review of Systems: CONSTITUTIONAL: Denies body aches, fever, chills EYES:Endorses redness and drainage to left eye; denies FB sensation, swelling,photophobia, visual changes ENT: reports rhinorrhea, congestion, sore throat, otalgia. CARDIOVASCULAR: Denies chest pain, palpitations RESPIRATORY: Denies cough or dyspnea. GASTROINTESTINAL: Denies abdominal pain, nausea, vomiting, or diarrhea. SKIN: Denies rash, itching, or wounds. MUSCULOSKELETAL: Denies back pain, joint pain, or myalgia. NEUROLOGIC: Denies numbness, tingling, or weakness. All systems reviewed & are unremarkable except as noted in HPI and below PMFSH Past Medical History Medical History Anxiety Asthma Depression Fibromyalgia GERD (gastroesophageal reflux disease) Hx of migraines Surgical History Surgical History H/O dilation and curettage Family History Family History Father Hypertension Prostate carcinoma Social History Social History Smoking packs per day: 1.5 Smoking cigarettes per day: 30.0 Years smoked: 12 Smoking pack-years: 18.00 Smoking status: Former smoker Tobacco type: cigarettes Second hand tobacco smoke exposure: No Additional smoking assessment comments: quit 12 years ago Alcohol intake: never Alcohol use details: socially Substance use: never Substance use type: marijuana Last use: 16 years ago Lack of Transportation: No Lack of Food: Never True Current Housing: I Have Housing Concerned About Future Housing: No Difficulty Paying Gas/Electric Bills: No Difficulty Paying for Meds: No Currently Unemployed: No Education: Associate Degree Difficulty w/ Childcare or Family Care: No Occupation/Education: unemployed Gender identity (if verbalized by the patient): Female Spiritual care concerns: No Comments At time of signature, I have reviewed and agree with nursing past medical, surgical, social and family history unless otherwise noted. Please see nursing chart for further information. There is no relevant family history pertinent to the presenting complaint E
== END 2023-10-08 12:07 | disposition home or self-care (01) ==
PROVIDERS: Emergency Provider Nurse Practitioner Family; PCP Family Medicine
DX: H10.9 Unspecified conjunctivitis (principal); Z87.891 Personal history of nicotine dependence; J45.909 Unspecified asthma, uncomplicated; M79.7 Fibromyalgia; K21.9 Gastro-esophageal reflux disease without esophagitis
CPT/HCPCS: 99213; G0463

== ENCOUNTER 2023-10-26 15:33 | Outpatient (CLI) | payer OTHER, SELFPAY ==
--- NOTE | ~2023-10-26 | MR_ITS ---
EXAMINATION: MR pituitary wo/w con DATE: 10/26/2023 16:49 INDICATION: Hyperprolactinemia. TECHNIQUE: Magnetic resonance imaging (MRI) of the brain and brainstem was performed without and with 16 mL MultiHance intravenous contrast. COMPARISON: Brain MRI 05/21/2021 FINDINGS: The pituitary is normal in size with height of 4 mm and concave superior margin. There is n o intracranial hemorrhage, acute infarction, or abnormal intracranial mass lesion. The ventricles are normal in size. The paranasal sinuses are clear. The orbits are normal. The mastoid air cells are no rmal. IMPRESSION: 1. Normal brain. Normal pituitary. Reviewed, dictated and finalized at location A.
== END 2023-10-26 15:34 | disposition home or self-care (01) ==
PROVIDERS: PCP Family Medicine; Visit Provider Obstetrics & Gynecology
DX: E22.1 Hyperprolactinemia (principal)
CPT/HCPCS: 70553; A9577

== ENCOUNTER 2024-04-12 13:03 | Emergency (ER) | payer OTHER, SELFPAY ==
[2024-04-12 13:15] VITALS: BP 113/75; PULSE 92; RESP 18; TEMP 36.6; O2SAT 98
--- NOTE | 2024-04-12 13:15 | ED_ITS ---
HPI - Abdominal Pain General Chief Complaint: Urogenital-Female Stated Complaint: UTI Time Seen by Provider: 04/12/24 13:34 Source: patient, RN notes reviewed and old records reviewed Mode of arrival: ambulatory Limitations: no limitations History of Present Illness HPI narrative: Patient presents with complaints of back pain, mostly right-sided, that has been present for at least 1 week. She reports that sometimes pain radiates anteriorly. Says she is just about ready to start her menstrual period. She is here today because she is concerned that she has a UTI. Does report some urinary frequency. Denies dysuria. Denies fever, chills, sweats. Denies derick hematuria. Is observed ambulating with steady gait. Patient has been taking ibuprofen with moderate relief of symptoms. Related Data Home Medications Medication Instructions Recorded Confirmed montelukast 10 mg tablet 10 mg PO QHS 10/18/19 04/12/24 cetirizine 10 mg tablet (Zyrtec) 10 mg PO QHS 03/24/20 04/12/24 oxybutynin chloride 5 mg 5 mg PO QHS 07/04/22 04/12/24 tablet,extended release 24 hr diphenhydramine HCl 25 mg capsule 50 mg PO QHS 03/31/23 04/12/24 (Allergy (diphenhydramine)) fluticasone propionate 50 2 spray intranasal QHS 03/31/23 04/12/24 mcg/actuation nasal spray,suspension budesonide-formoterol HFA 80 2 puff inhalation BID 04/12/24 04/12/24 mcg-4.5 mcg/actuation aerosol inhaler Allergies Allergy/AdvReac Type Severity Reaction Status Date / Time codeine Allergy Severe Loss of Verified 04/12/24 13:04 Consciousness orange Allergy Intermediate Itching Verified 04/12/24 13:04 morphine AdvReac Intermediate chest Verified 04/12/24 13:04 pressure oxycodone AdvReac Intermediate vomiting, Verified 04/12/24 13:04 syncope Review of Systems Review of Systems: All systems reviewed & are unremarkable except as noted in HPI and below Constitutional: Constitutional: Reports no additional constitutional complaints ENT: Reports system reviewed and no additional complaints, except as documented Cardiovascular: Cardiovascular: Reports no additional cardiovascular complaints Respiratory: Respiratory: Reports as per HPI and Reports no additional respiratory complaints Gastrointestinal: Gastrointestinal: Reports as per HPI and Reports no additional gastrointestinal complaints Genitourinary: Genitourinary: Reports no additional female genitourinary complaints and Reports as per HPI Musculoskeletal: Musculoskeletal: Reports no additional musculoskeletal complaints and Reports as per HPI [facility] Past Medical History Medical History Anxiety Asthma Depression Fibromyalgia GERD (gastroesophageal reflux disease) Hx of migraines Surgical History Surgical History H/O dilation and curettage Family History Family History Father Hypertension Prostate carcinoma Social History Social History Smoking packs per day: 1.5 Smoking cigarettes per day: 30.0 Years smoked: 12 Smoking pack-years: 18.00 Smoking status: Former smoker Tobacco type: cigarettes Second hand tobacco smoke exposure: No Additional smoking assessment comments: quit 12 years ago Alcohol intake: never Alcohol use details: socially Substance use: never Substance use type: marijuana Last use: 16 years ago Lack of Transportation: No Lack of Food: Never True Current Housing: I Have Housing Concerned About Future Housing: No Difficulty Paying Gas/Electric Bills: No Difficulty Paying for Meds: No Currently Unemployed: No Education: Associate Degree Difficulty w/ Childcare or Family Care: No Occupation/Education: unemployed Gender identity (if verbalized by the patient): Female Spiritual care concerns: No Comments At the time of my signature, I reviewed and agree with the nursing past medical, surgical, social, and family history. There is no relevant family history pertinent to the patient complaint. 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, no rales, no rhonchi and no wheezes Cardio: Palpation: normal PMI Rate: regular rate Rhythm: regular rhythm Heart sounds: S1 normal heart sound present and S2 normal heart sound present GI: GI Palp: No abdominal tenderness, Yes Soft to palpation, No Tenderness to palpation present (GI), No Guarding due to palpation present (GI) and No Rigid due to palpation Auscultation: normal bowel sounds : General: Yes no CVA tenderness Neuro: General: oriented to person, oriented to place and oriented to time Cranial nerves: Yes CN's II-XII intact bilaterally Psych: Appearance: grossly normal Thought process: Normal thought process present Insight: Good insight present (Psych) Judgement: Good judgement present (Psych) Course Course Level of Care: Express Care Visit Vital Signs Vital signs: Reviewed MDM - Abdominal Pain MDM Narrative Medical decision making narrative: Patient nontoxic appearing, no distress. UA unremarkable. Patient refuses test. Patient also refuses and sent pain medications, says that she would prefer not to take any medications for pain. Discharge instructions reviewed with patient, as well as provided in writing per nursing staff. The instructions also include specific and strict return/GO TO THE ER as well as f/u information. All questions have been answered, and the patient deny any further questions with discharge and discharge plan. Some parts of this dictation were generated by voice recognition software and may contain typographical and/or grammatical inaccuracies. Differential Diagnosis Differential diagnosis: Likely abdominal pain, calculus of kidney, constipation, diverticulitis and endometriosis Medical Records Attestation: I reviewed the patient's medical records. Lab Data Attestation: I reviewed the patient's lab results. Discharge Plan Discharge Clinical Impression: Back pain Qualifiers: Back pain location: low back pain Chronicity: acute Back pain laterality: bilateral Sciatica presence: without sciatica Qualified Code(s): M54.50 - Low back pain, unspecified Patient Disposition: Home, Self-Care Condition: Stable Instructions: Antibiotic Form Additional Instructions: Follow-up with primary care provider, emergency department for new or worse symptoms Patient Language: Yoruba Prescriptions: No Action oxybutynin chloride 5 mg tablet extended release 24hr 5 mg PO QHS budesonide-formoterol 80-4.5 mcg/actuation HFA aerosol inhaler 2 puff INHALATION BID diphenhydramine HCl [Allergy (diphenhydramine)] 25 mg Capsule 50 mg PO QHS fluticasone propionate 50 mcg/actuation [place],Suspension 2 spray INTRANASAL QHS Rx Instructions: 2 SPRAYS PER NOSTRIL montelukast 10 mg tablet 10 mg PO QHS cetirizine [Zyrtec] 10 mg Tablet 10 mg PO QHS Follow-up/Referrals: Rufus,Meseret Mccollum MD [Primary Care Provider] - 1 Week Time of Disposition: 14:12
[2024-04-12 13:29] LABS: EDUAAPPEAR Cloudy; EDUABILI Negative (Negative); EDUABLOOD Negative (Negative); EDUACOLOR1 Yellow; EDUAGLUCOSE Negative (Negative); EDUAKETONE Negative (Negative); EDUALEUKO Negative (Negative); EDUANITRATE Negative (Negative); EDUAPH 5.5; EDUAPROTEIN Negative (Negative); EDUAUROBILI 0.2
== END 2024-04-12 14:20 | disposition home or self-care (01) ==
PROVIDERS: Emergency Provider Nurse Practitioner Family; PCP Family Medicine
DX: M54.50 Low back pain, unspecified (principal); Z79.899 Other long term (current) drug therapy; Z87.891 Personal history of nicotine dependence
CPT/HCPCS: 81003; 99212; G0463

== ENCOUNTER 2024-08-10 09:13 | Emergency (ER) | payer OTHER, SELFPAY ==
--- NOTE | ~2024-08-10 | US_ITS ---
EXAMINATION: US venous doppler [facility] DATE: 08/10/2024 10:37 INDICATION: Left lower limb swelling and pain TECHNIQUE: Grayscale ultrasound images without and with compression and Doppler ultrasound images of the left lower extremity veins were obtained. COMPARISON: None. FINDINGS: The visualized portions of left common femoral vein, profunda (deep) femoral vein, femoral vein, popl iteal vein, peroneal veins, posterior tibial veins, gastrocnemius vein and greater saphenous vein out flow are patent. IMPRESSION: 1. No deep venous thrombosis in the left lower limb. Reviewed, dictated and finalized at location A. OR [facility]MI[facility]
[2024-08-10 09:14] VITALS: BP 136/92; PULSE 95; RESP 18; TEMP 36.4; O2SAT 97
--- OUTSIDE RECORDS SUMMARY | 2024-08-10 09:16 | XMS_ITS | Clinical Summary ---
Author Organization [facility] on Address [address] [place] [address] Phone Care Team Providers Care Network Systems Analyst Name Role Phone Gely Carroll MD Primary Care Provider [phone] Allergies Active Allergy Reactions Criticality Noted Date Comments Hydrocodone-Acetaminophen Syncope Medium 03/06/2009 Morphine Other (See Comments) 05/24/2021 Oxycodone-Acetaminophen Itching Low 04/15/2009 Medications ibuprofen (MOTRIN) 600 mg tablet Take 600 mg by mouth daily. Active cyanocobalamin 1,000 mcg TabletIndication s:Low vitamin B12 level Take 2 Tablets (2,000 mcg) by mouth daily. 4 Active montelukast (SINGULAIR) 10 mg tablet TAKE 1 TABLET(10 MG) BY MOUTH DAILY 90 Tablet 1 4 Active budesonide-formo teroL (Symbicort) 80-4.5 mcg/actuation HFA Aerosol InhalerIndicatio ns:Intermittent asthma with acute exacerbation, unspecified asthma severity Take 2 Puffs by inhalation 2 times daily. 6.9 Gram 1 4 Active Restasis 0.05 % emulsion Administer 1 Drop in both eyes 2 times daily. 4 Active cetirizine (ZyrTEC) 10 mg tablet Take 1 Tablet (10 mg) by mouth daily. 90 Tablet 4 Active fluticasone propionate (FLONASE) 50 mcg/spray [place], Suspension nasal inhalerIndicatio ns:Seasonal allergic rhinitis, unspecified trigger Administer 2 Sprays in each nostril daily. 16 Gram 4 Active oxyBUTYnin (DITROPAN XL) 5 mg Extended Release 24 hour tabletIndication s:Stress incontinence TAKE 1 TABLET(5 MG) BY MOUTH DAILY 90 Tablet 5 Active buPROPion HCL (Wellbutrin XL) 150 mg Extended Release 24 hour tabletIndication s:Depression with anxiety Take 1-2 Tablets (150-300 mg) by mouth daily in the morning. 180 Tablet 1 5 Active buPROPion HCL (Wellbutrin XL) 150 mg Extended Release 24 hour tabletIndication s:Depression with anxiety Take 1-2 Tablets (150-300 mg) by mouth daily in the morning. 60 Tablet 5 025 Discontin ued(Reord er) Active Problems Problem Noted Date Diagnosed Date Stress incontinence 11/10/2023 Sleep apnea 11/10/2023 Mild intermittent asthma without complication PFD (pelvic floor dysfunction) 10/22/2021 Allergic rhinitis 02/14/2012 Degenerative cervical disc 11/05/2010 Fibromyalgia 04/08/2009 Herniated lumbar intervertebral disc 04/08/2009 Overview (04/08/2009): L4/L5 Resolved Problems Problem Noted Date Diagnosed Date Resolved Date Arthralgia 04/08/2009 01/14/2014 Tobacco use disorder 04/08/2009 012 Encounters Date Type Department Care Team Description 08/08/2024 2:20 PM INSTRUMENT MECHANIC WEAPONS SYSTEM Procedure visit [facility] [address] [place] [phone] Issue of repeat prescription for medication (Primary Dx) 08/07/2024 External Device Data STL ABSTRACTION Provider, Abstract 08/02/2024 Refill [facility] [address] [place] [phone] Gely Carroll MD Depression with anxiety 07/23/2024 External Device Data STL ABSTRACTION Provider, Abstract 07/19/2024 [facility] [address] [place] [phone] Gely Carroll MD 07/10/2024 External Device Data STL ABSTRACTION Provider, Abstract 07/04/2024 2:30 PM INSTRUMENT MECHANIC WEAPONS SYSTEM Office Visit [place] [address] [place] [address] Gely Carroll MD Depression with anxiety (Primary Dx); Declined influenza vaccine; Prediabetes; Obstructive sleep apnea syndrome; Pure hypercholesterolemia ; Low vitamin D level; Low vitamin B12 level; Breast cancer screening by mammogram 07/01/2024 7:40 AM INSTRUMENT MECHANIC WEAPONS SYSTEM Procedure visit [facility] at [place] [address] [place] [address] Low vitamin B12 level; Low vitamin D level; Screening for condition 06/26/2024 Refill [facility] [place] [address] [place] [address] Gely Carroll MD Stress incontinence 06/04/2024 9:00 AM INSTRUMENT MECHANIC WEAPONS SYSTEM Office Visit [place] [address] [place] [address] Gely Carroll MD Depression with anxiety (Primary Dx); MARY on CPAP; Low vitamin D level; Low vitamin B12 level; Lipoma, unspecified site; Screening for condition; Seasonal allergic rhinitis, unspecified trigger from Last 3 Months Immunizations Immunization Administration Dates Next Due (ADACEL/BOOSTRIX)(10 YR UP) TDAP VACCINE, 0.5ML, IM 11/09/2023 INFLUENZA VACCINE QUADRIVALENT 6 MOS UP PF IM Influenza Vaccine Split 3+ Yrs IM 03/03/2010 Skin Test TB 04/01/2014 Family History Medical History Relation Name Comments No Known Problems Brother 1 No Known Problems Brother 2 Other Daughter 1 No Known Problems Daughter 2 Hypertension Father Prostate Cancer Father Lung Cancer Maternal Grandfather Alzheimer's Disease Maternal Grandmother Dementia Maternal Grandmother Hypertension Maternal Grandmother Other Maternal Grandmother factor 5 leiden No Known Problems Mother Cancer Paternal Grandfather Blood Disorder Paternal Grandmother Hypertension Paternal Grandmother Relation Name Status Comments Brother 1 Alive Brother 2 Alive Daughter 1 Alive Daughter 2 Alive Father Alive Maternal Grandfather Maternal Grandmother Mother Alive Paternal Grandfather Paternal Grandmother Social History Tobacco Use Types Packs/Day Years Used Date Smoking Tobacco: Former Cigarettes Smokeless Tobacco: Never Alcohol Use Standard Drinks/Week Comments No 0 (1 standard drink = 0.6 oz pur e alcohol) Comments No Sex and Gender Information Value Date Recorded Sex Assigned at Not on file Legal Sex Female 3:26 AM INSTRUMENT MECHANIC WEAPONS SYSTEM Gender Identity Not on file Sexual Orientation Not on file Occupation Industry Job Start Date Job End Date Not on file Not on file Not on file Not on file Last Filed Vital Signs Vital Sign Reading Time Taken Comments Blood Pressure 116/84 07/04/2024 2:37 PM INSTRUMENT MECHANIC WEAPONS SYSTEM Pulse 68 07/04/2024 2:37 PM INSTRUMENT MECHANIC WEAPONS SYSTEM Temperature 36.7 C (98 F) 07/04/2024 2:37 PM INSTRUMENT MECHANIC WEAPONS SYSTEM Respiratory Rate 18 07/04/2024 2:37 PM INSTRUMENT MECHANIC WEAPONS SYSTEM Oxygen Saturation 97% 07/04/2024 2:37 PM INSTRUMENT MECHANIC WEAPONS SYSTEM Inhaled Oxygen Concentration - - Weight 80.9 kg (178 lb 6.4 oz) 07/04/2024 2:37 P M INSTRUMENT MECHANIC WEAPONS SYSTEM Height 147.3 cm (4' 10 ) 07/04/2024 2:37 PM INSTRUMENT MECHANIC WEAPONS SYSTEM Body Mass Index 37.29 07/04/2024 2:37 PM INSTRUMENT MECHANIC WEAPONS SYSTEM Plan of Treatment Upcoming Encounters Date Type Department Care Team (Late st Contact Info) Description 10/07/2024 3:45 PM CDT Office Visit [facility] Britton Rocha [address] [facility] [address] [place] [address] [place] [address] [address] [place] [address] Health Maintenance Due Date Last Done Comments HEPATITIS B VACCINES (1 of 3 - 19+ 3-dose series) 2002 BREAST CANCER SCREENING 2023 COVID-19 Vaccine ( season) 2024 07/16/2020 Preventative Visit- Commercial 06/19/2024 12/13/2021, 11/15/2016, 01/15/2016, Additional history exists CERVICAL CANCER SCREENING 12/13/20262021, 11/16/2016, 12/17/2008 Pre-Diabetes and Diabetes Screening 07/01/2027 07/01/2024, 06/09/2021 DTAP/TDAP/TD VACCINES (2 - Td or Tdap) 11/08/2033 11/09/2023 INFLUENZA VACCINE Completed 07/04/2024, , 03/03/2010 HPV VACCINES Aged Out No longer eligi ble based on patient's age to complete this topic Procedures Procedure Name Priority Date/Time Associated Diagnosis Comments HEMOGLOBIN A1C Routine 07/01/2024 7:25 AM INSTRUMENT MECHANIC WEAPONS SYSTEM Screening for condition LIPID PANEL Routine 07/01/2024 7:25 AM INSTRUMENT MECHANIC WEAPONS SYSTEM Screening for condition VITAMIN D 25 HYDROXY Routine 07/01/2024 7:25 AM INSTRUMENT MECHANIC WEAPONS SYSTEM Low vitamin D level VITAMIN B12 LEVEL Routine 07/01/2024 7:2 5 AM INSTRUMENT MECHANIC WEAPONS SYSTEM Low vitamin B12 level CERV/VAG CYTO SCREEN PAP W/HPV Routine 11/16/2016 Encounter for gynecological examination without abnormal finding from Last 3 Months or Most Recently Relevant to Health Maintenance Results * VITAMIN D 25 HYDROXY (07/01/2024 7:25 AM INSTRUMENT MECHANIC WEAPONS SYSTEM) VITAMIN D, 25 OH, TOTAL 40 30 - 100 ng/mL [facility] Comment: Vitamin D Status 25-OH Vitamin D: Deficiency: <20 ng/mL Insufficiency: 20 - 29 ng/mL Optimal: > or = 30 ng/mL For 25-OH Vitamin D testing on patients on D2-supplementation and patients for whom quantitation of D2 and D3 fractions is required, the [facility]() 25-OH VIT D, (D2,D3), LC/MS/MS is recommended: order code [id number] (patients >2yrs). See Note 1 Note 1 For additional information, please refer to http://education.shipbeat/faq/VAT518 (This link is being provided for informational/ educational purposes only.) Test Performed at: [facility] [address] [place] [address] Kendell Castañeda MD Blood 07/01/2024 7:25 AM INSTRUMENT MECHANIC WEAPONS SYSTEM 07/02/2024 6:08 AM INSTRUMENT MECHANIC WEAPONS SYSTEM us Gely Carroll MD CHEMISTRY ORDERABLES Final Res ult Performing Organization Address [facility] Co de Phone Number [facility] [phone] [facility] [address] [facility] [place] [address] * (ABNORMAL) HEMOGLOBIN A1C (07/01/2024 7:25 AM INSTRUMENT MECHANIC WEAPONS SYSTEM) HEMOGLOBIN A1C 5.7(H) <5.7 % of total Hgb [facility] Comment: For someone without known diabetes, a hemoglobin A1c value between 5.7% and 6.4% is consistent with prediabetes and should be confirmed with a follow-up test. For someone with known diabetes, a value <7% indicates that their diabetes is well controlled. A1c targets should be individualized based on duration of diabetes, age, comorbid conditions, and other considerations. This assay result is consistent with an increased risk of diabetes. Currently, no consensus exists regarding use of hemoglobin A1c for diagnosis of diabetes for children. ESTIMATED AVERAGE GLUCOSE (MG/DL) 117 mg/dL [facility] ESTIMATED AVERAGE GLUCOSE (MMOL/L) 6.5 mmol/L [facility] Comment: Test Performed at: [facility] [address] [place] [address] Kendell Castañeda MD Blood 07/01/2024 7:25 AM INSTRUMENT MECHANIC WEAPONS SYSTEM 07/02/2024 6:08 AM INSTRUMENT MECHANIC WEAPONS SYSTEM us Gely Carroll MD CHEMISTRY ORDERABLES Final Res ult Performing Organization Address [facility]/ZIP Co de Phone Number [facility] [phone] [facility] [address] [place] [address] * (ABNORMAL) VITAMIN B12 LEVEL (07/01/2024 7:25 AM INSTRUMENT MECHANIC WEAPONS SYSTEM) VITAMIN B12 1836(H) 200 - 1100 pg/mL [facility] Comment: Test Performed at: [facility] [address] [place] [address] Kendell Castañeda MD Blood 07/01/2024 7:25 AM INSTRUMENT MECHANIC WEAPONS SYSTEM 07/02/2024 6:08 AM INSTRUMENT MECHANIC WEAPONS SYSTEM us Gely Carroll MD CHEMISTRY ORDERABLES Final Res ult [facility] [phone] [facility] [address] * (ABNORMAL) LIPID PANEL (07/01/2024 7:25 AM INSTRUMENT MECHANIC WEAPONS SYSTEM) CHOLESTEROL 181 <200 mg/dL [facility] HDL 54 > OR = 50 mg/dL [facility] TRIGLYCERIDE 84 <150 mg/dL [facility] LDL CALCULATED 110(H) mg/dL (calc) [facility] Comment: Reference range: <100 Desirable range <100 mg/dL for primary prevention; <70 mg/dL for patients with CHD or diabetic patients with > or = 2 CHD risk factors. LDL-C is now calculated using the Job-Shelley calculation, which is a validated novel method providing better accuracy than the Friedewald equation in the estimation of LDL-C. Job SS et al. ODESSA. 2013;310(19): 4977-1821 (http://education.shipbeat/faq/WOF024) CHOL/HDL RATIO 3.4 <5.0 (calc) [facility] NON-HDL CHOLESTEROL 127 <130 mg/dL (calc) [facility] Comment: For patients with diabetes plus 1 major ASCVD risk factor, treating to a non-HDL-C goal of <100 mg/dL (LDL-C of <70 mg/dL) is considered a therapeutic option. Test Performed at: [facility] [place] [address] Kendell Castañeda MD Blood 07/01/2024 7:25 AM INSTRUMENT MECHANIC WEAPONS SYSTEM 07/02/2024 6:08 AM INSTRUMENT MECHANIC WEAPONS SYSTEM us Gely Carroll MD CHEMISTRY ORDERABLES Final Res ult [facility] [phone] [facility] [address] [address] * CERV/VAG CYTOPATH, THIN PREP CASSANDRA DEVELOPER AND HPV (11/16/2016) Genital SWAB OF ENDOCERVIX / Unknown us Dolly Melchor MD PATHOLOGY/CYTOLOGY ORDERA BLES Final Result [facility]# [id number] [address] [place] [address] from Last 3 Months or Most Recently Relevant to Health Maintenance Insurance ALLEGIAN OPEN ACCESS ALLEGIANCE OPEN ACCESS Care Teams Network Systems Analyst Relationship Specialty Start Date End Date Gely Carroll MD [address] [place] [address] [place] [address] PCP - General Internal Medicine 11/09/23
--- OUTSIDE RECORDS SUMMARY | 2024-08-10 09:16 | XMS_ITS | Referral Summary ---
Author Organization [facility] Address [address] [place] [address] Care Team Providers Care Pharmacist Technician Name Role Phone Meseret Hooper MD Primary Care Provider Allergies Active Allergy Reactions Criticality Noted Date Comments Hydrocodone-Acetaminophen Vomiting Low 06/26/2021 Morphine Dizziness Low 06/26/2021 Oxycodone-Acetaminophen Dizziness Low 06/26/2021 Medications montelukast (SINGULAIR) 10 mg tablet montelukast 10 mg tablet Active vit D3-vit G-fdaxurmgu-ovw s [phone] jzba-url-oq-mg tablet Take by mouth Active ascorbic acid (VITAMIN C) 100 mg tablet Take 100 mg by mouth daily Active oxybutynin XL (DITROPAN-XL) 5 mg 24 hr tablet Active Active Problems Problem Noted Date Diagnosed Date MARY (obstructive sleep apnea) 03/11/2022 Social History Tobacco Use Types Packs/Day Years Used Date Smoking Tobacco: Never Smokeless Tobacco: Never Tobacco Cessation:Counseling Given: No Personal Safety Answer Date Recorded Getting School Help Needed Not on file 06/02 Comments Unknown Sex and Gender Information Value Date Recorded Sex Assigned at Not on file Legal Sex Female 8:44 AM COORDINATING PRODUCER Gender Identity Not on file Sexual Orientation Not on file Last Filed Vital Signs Vital Sign Reading Time Taken Comments Blood Pressure 117/85 03/11/2022 11:13 AM CDT Pulse 98 06/26/2021 5:08 PM COORDINATING PRODUCER Temperature 36.9 C (98.5 F) 06/26/2021 5:08 PM COORDINATING PRODUCER Respiratory Rate 18 03/11/2022 11:13 AM CDT Oxygen Saturation 97% 06/26/2021 5:08 PM COORDINATING PRODUCER Inhaled Oxygen Concentration - - Weight 79.4 kg (175 lb) 03/11/2022 11:13 AM CDT Height 149.2 cm (4' 10.74 ) 03/11/2022 11:13 AM CDT Body Mass Index 35.66 03/11/2022 11:13 AM CDT Plan of Treatment Not on file Insurance [employer] AL[employer]GIANCE Care Teams Pharmacist Technician Relationship Specialty Start Date End Date Meseret Hooper MD PCP - General Family Medicine 03/11/22
--- OUTSIDE RECORDS SUMMARY | 2024-08-10 09:16 | XMS_ITS | Clinical Summary ---
Author Organization [facility] [address] [facility] Address [address] [facility] [facility] [address] Care Team Providers Care Sow Farm Technician Name Role Phone Meseret Hooper MD Primary Care Provider Allergies Active Allergy Reactions Criticality Noted Date Comments Hydrocodone-Acetaminophen Vomiting Low 06/26/2021 Morphine Dizziness Low 06/26/2021 Oxycodone-Acetaminophen Dizziness Low 06/26/2021 Medications montelukast (SINGULAIR) 10 mg tablet montelukast 10 mg tablet Active vit D3-vit E-emiduihpm-vuu s [phone] niqm-ekx-xn-mg tablet Take by mouth Active ascorbic acid (VITAMIN C) 100 mg tablet Take 100 mg by mouth daily Active oxybutynin XL (DITROPAN-XL) 5 mg 24 hr tablet Active Active Problems Problem Noted Date Diagnosed Date MARY (obstructive sleep apnea) 03/11/2022 Surgical History Surgery Date Site/Laterality Comments NO PAST SURGERIES Medical History Medical History Date Comments Anxiety Social History Tobacco Use Types Packs/Day Years Used Date Smoking Tobacco: Never Smokeless Tobacco: Never Tobacco Cessation:Counseling Given: No Personal Safety Answer Date Recorded Getting School Help Needed Not on file 06/02 Comments Unknown Sex and Gender Information Value Date Recorded Sex Assigned at Not on file Legal Sex Female 8:44 AM AUTOMATION/CONTROLS MANAGER Gender Identity Not on file Sexual Orientation Not on file Obstetrics History Last Filed Vital Signs Vital Sign Reading Time Taken Comments Blood Pressure 117/85 03/11/2022 11:13 AM CDT Pulse 98 06/26/2021 5:08 PM AUTOMATION/CONTROLS MANAGER Temperature 36.9 C (98.5 F) 06/26/2021 5:08 PM AUTOMATION/CONTROLS MANAGER Respiratory Rate 18 03/11/2022 11:13 AM CDT Oxygen Saturation 97% 06/26/2021 5:08 PM AUTOMATION/CONTROLS MANAGER Inhaled Oxygen Concentration - - Weight 79.4 kg (175 lb) 03/11/2022 11:13 AM CDT Height 149.2 cm (4' 10.74 ) 03/11/2022 11:13 AM CDT Body Mass Index 35.66 03/11/2022 11:13 AM CDT Plan of Treatment Health Maintenance Due Date Last Done Comments Breast Cancer Screening-Mammogram 1983 Cervical Cancer Screening 1983 Depression Screening 1983 Hepatitis C Screening 1983 DTaP/Tdap/Td Vaccine (1 - Tdap) 1994 Varicella Vaccines (1 of 2 - 13+ 2-dose series) 1996 Hepatitis B Screening 2001 Regular Well Visit/Exam 18-64 2001 Covid-19 Vaccine (3 - 2023-2 5 season) 2024 09/27/2021, 07/16/2020 Influenza Vaccine (#1) 2024 HPV Vaccines Aged Out No longer eligi ble based on patient's age to complete this topic Pneumococcal vaccine <65 Aged Out No longer eligible based on patient's age to complete this topic Insurance Care Teams Sow Farm Technician Relationship Specialty Start Date End Date Meseret Hooper MD PCP - General Family Medicine 03/11/22
--- OUTSIDE RECORDS SUMMARY | 2024-08-10 09:17 | XMS_ITS | Encounter Summary ---
Author Organization [id number] Address [address] [place] [address] Care Team Providers Care Construction Equipment Mechanic Helper Name Role Phone Gely Carroll MD Primary Care Provider [phone] Encounter Details Date Type Department Care Team (Latest Contact Info) Description 12/09/2003 Outpatient Historical [facility] Haile Dutton MD NO ADDRESS ON FILE ACUTE URI NOS (Primary Dx) Social History Tobacco Use Types Packs/Day Years Used Date Smoking Tobacco: Never Assessed Comments Unknown Sex and Gender Information Value Date Recorded Sex Assigned at Not on file Legal Sex Female 3:26 AM CHLORINATOR OPERATOR Gender Identity Not on file Sexual Orientation Not on file documented as of this encounter Plan of Treatment Upcoming Encounters Date Type Department Care Team (Late st Contact Info) Description 10/07/2024 3:45 PM CDT Office Visit [facility] Rhe[facility]ology Britton Rocha [address] [facility] [address] [place] [address] [place] [address] [facility] [address] [place] [address] documented as of this encounter Visit Diagnoses Diagnosis Acute upper respiratory infections of unspecified site- Primary documented in this encounter Care Teams Construction Equipment Mechanic Helper Relationship Specialty Start Date End Date Gely Carroll MD [address] [place] [address] [place] [address] PCP - General Internal Medicine 11/09/23 documented as of this encounter
--- OUTSIDE RECORDS SUMMARY | 2024-08-10 09:17 | XMS_ITS | Encounter Summary ---
Author Organization [facility] Address [address] [place] [address] Care Team Providers Care Finishing Range Feeder Name Role Phone Gely Carroll MD Primary Care Provider Encounter Details Date Type Department Care Team (Latest Contact Info) Description 01/15/2004 Outpatient Historical [facility] Susan Guo MD [place] (Primary Dx) Social History Tobacco Use Types Packs/Day Years Used Date Smoking Tobacco: Never Assessed Comments Unknown Sex and Gender Information Value Date Recorded Sex Assigned at Not on file Legal Sex Female 3:26 AM NEWS CLERK Gender Identity Not on file Sexual Orientation Not on file documented as of this encounter Plan of Treatment Upcoming Encounters Date Type Department Care Team (Late st Contact Info) Description 10/07/2024 3:45 PM CDT Office Visit [facility] Rheumatology Britton Rocha [address] [place] [address] [place] [address] [facility] [address] [place] [address] documented as of this encounter Visit Diagnoses Diagnosis Swelling of limb- Primary documented in this encounter Care Teams Finishing Range Feeder Relationship Specialty Start Date End Date Gely Carroll MD [address] [place] [address] [place] [place] [address] PCP - General Internal Medicine 11/09/23 documented as of this encounter
--- OUTSIDE RECORDS SUMMARY | 2024-08-10 09:17 | XMS_ITS | Encounter Summary ---
Author Organization [facility] Address [address] [place] [address] Care Team Providers Care Turntable Worker Name Role Phone Gely Carroll MD Primary Care Provider [phone] Encounter Details Date Type Department Care Team (Late st Contact Info) Description 08/10/2008 Outpatient Historical HIS [facility] Becky Wall MD [address] [facility] [place] [address] Social History Tobacco Use Types Packs/Day Years Used Date Smoking Tobacco: Never Assessed Comments Unknown Sex and Gender Information Value Date Recorded Sex Assigned at Not on file Legal Sex Female 3:26 AM ALARM INSTALLATION TECHNICIAN Gender Identity Not on file Sexual Orientation Not on file documented as of this encounter Plan of Treatment Upcoming Encounters Date Type Department Care Team (Late st Contact Info) Description 10/07/2024 3:45 PM CDT Office Visit [facility] Britton Rocha [address] [facility] [address] [place] [address] [place] [address] [address] [facility] [address] [place] [address] documented as of this encounter Procedures Procedure Name Priority Date/Time Associated Diagnosis Comments BETA STREP ONLY CULTURE Routine 08/10/2008 1:26 PM ALARM INSTALLATION TECHNICIAN URINE CULTURE Routine 08/10/2008 1:26 PM ALARM INSTALLATION TECHNICIAN documented in this encounter Results * BETA STREP ONLY CULTURE (08/10/2008 1:26 PM ALARM INSTALLATION TECHNICIAN) FINAL REPORT No Group A, C, or G beta Streptococcus isolated. [facility] Specimen from throat (specimen) 08/10/2008 1:26 PM ALARM INSTALLATION TECHNICIAN 08/10/2008 8:15 PM ALARM INSTALLATION TECHNICIAN Becky Bowling MD MICROBIOLOGY - GENERAL ORDERABL ES Final Result Performing Organization Address City/[facility] de Phone Number INTERFACE SYSTEM Refer to clinic/hospital department [facility] CLIA# [id number] [address] [place] [place] [address] * URINE CULTURE (08/10/2008 1:26 PM ALARM INSTALLATION TECHNICIAN) FINAL REPORT Polymicrobial growth present consistent with urethral david and/or colonizing bacteria. [facility] 08/10/2008 1:26 PM ALARM INSTALLATION TECHNICIAN 08/10/2008 8:15 PM ALARM INSTALLATION TECHNICIAN Becky Bowling MD MICROBIOLOGY - GENERAL ORDERABL ES Final Result Performing Organization Address City/[facility] de Phone Number INTERFACE SYSTEM Refer to clinic/hospital department [facility] CLIA# [id number] [address] [place] [address] documented in this encounter Visit Diagnoses Not on filedocumented in this encounter Care Teams Turntable Worker Relationship Specialty Start Date End Date Gely Carroll MD [address] [place] [phone] PCP - General Internal Medicine 11/09/23 documented as of this encounter
--- OUTSIDE RECORDS SUMMARY | 2024-08-10 09:17 | XMS_ITS | Encounter Summary ---
Author Organization [employer] Address [address] [place] [address] Care Team Providers Care Professor Of Mathematics Name Role Phone Gely Carroll MD Primary Care Provider [phone] Encounter Details Date Type Department Care Team (Late st Contact Info) Description 12/19/2007 Outpatient Historical HIS [facility] [place] [address] [place] [address] Social History Tobacco Use Types Packs/Day Years Used Date Smoking Tobacco: Never Assessed Comments Unknown Sex and Gender Information Value Date Recorded Sex Assigned at Not on file Legal Sex Female 3:26 AM MASH FILTER OPERATOR Gender Identity Not on file Sexual Orientation Not on file documented as of this encounter Plan of Treatment Upcoming Encounters Date Type Department Care Team (Late st Contact Info) Description 10/07/2024 3:45 PM CDT Office Visit [facility] Rheumatology Britton Rocha [address] [facility] [address] [place] [address] [place] [address] [address] [facility] [address] [place] [address] documented as of this encounter Visit Diagnoses Not on filedocumented in this encounter Care Teams Professor Of Mathematics Relationship Specialty Start Date End Date Gely Carroll MD [address] [place] [address] PCP - General Internal Medicine 11/09/23 documented as of this encounter
--- OUTSIDE RECORDS SUMMARY | 2024-08-10 09:17 | XMS_ITS | Encounter Summary ---
Author Organization [facility] Address 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 Gender Identity Not on file Sexual Orientation Not on file documented as of this encounter Plan of Treatment Upcoming Encounters Date Type Department Care Team (Late st Contact Info) Description 10/07/2024 3:45 PM CDT Office Visit [facility] Rheumatology Britton Rocha [address] [facility] [address] [place] [address] [place] [address] [facility] [address] [place] [address] documented as of this encounter Procedures Procedure Name Priority Date/Time Associated Diagnosis Comments BETA STREP ONLY CULTURE Routine 11/28/2007 11:43 AM CDT documented in this encounter Results * BETA STREP ONLY CULTURE (11/28/2007 11:43 AM CDT) PRELIMINARY REPORT Pending [facility] FINAL REPORT No Group A, C, or G beta Streptococcus isolated. [facility] Specimen from throat (specimen) 11/28/2007 11:43 AM CDT 11/28/2007 6:08 PM CDT us Haile Javier MD MICROBIOLOGY - GENERAL ORDER DARINEL Final Result [facility] CLIA# [id number] [address] [place] [address] documented in this encounter Visit Diagnoses Not on filedocumented in this encounter Care Teams Zanjero Relationship Specialty Start Date End Date Gely Carroll MD [address] [place] [address] PCP - General Internal Medicine 11/09/23 documented as of this encounter
--- OUTSIDE RECORDS SUMMARY | 2024-08-10 09:17 | XMS_ITS | Encounter Summary ---
Author Organization [employer] [facility] Address 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 Gender Identity Not on file Sexual Orientation Not on file documented as of this encounter Plan of Treatment Upcoming Encounters Date Type Department Care Team (Late st Contact Info) Description 10/07/2024 3:45 PM CDT Office Visit [facility] Rheumatology Britton Rocha [address] [facility] [address] [place] [address] [place] [address] [place] [address] documented as of this encounter Visit Diagnoses Diagnosis Other current maternal conditions classifiable elsewhere, antepartum- Primary documented in this encounter Care Teams Kiln Drawer Relationship Specialty Start Date End Date Gely Carroll MD [facility] [place] [address] PCP - General Internal Medicine 11/09/23 documented as of this encounter
--- OUTSIDE RECORDS SUMMARY | 2024-08-10 09:17 | XMS_ITS | Encounter Summary ---
Author Organization [employer] Address 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 Gender Identity Not on file Sexual Orientation Not on file documented as of this encounter Plan of Treatment Upcoming Encounters Date Type Department Care Team (Late st Contact Info) Description 10/07/2024 3:45 PM CDT Office Visit [facility] Rheumatology Britton Rocha [address] [facility] [address] [place] [address] [place] [address] [facility] [address] [place] [address] documented as of this encounter Procedures Procedure Name Priority Date/Time Associated Diagnosis Comments BETA STREP ONLY CULTURE Routine 07/04/2008 12:37 PM TAX APPRAISER documented in this encounter Results * BETA STREP ONLY CULTURE (07/04/2008 12:37 PM TAX APPRAISER) PRELIMINARY REPORT Pending [facility] FINAL REPORT No Group A, C, or G beta Streptococcus isolated. [facility] Specimen from throat (specimen) 07/04/2008 12:37 PM TAX APPRAISER 07/04/2008 3:54 PM TAX APPRAISER us Andrew Frankel MD MICROBIOLOGY - GENERAL ORDERABL ES Final Result INTERFACE SYSTEM Refer to clinic/hospital department [facility] CLIA# [id number] [address] [place] [address] documented in this encounter Visit Diagnoses Not on filedocumented in this encounter Care Teams Garment Supervisor Relationship Specialty Start Date End Date Gely Carroll MD [address] [place] [address] PCP - General Internal Medicine 11/09/23 documented as of this encounter
--- OUTSIDE RECORDS SUMMARY | 2024-08-10 09:17 | XMS_ITS | Encounter Summary ---
Author Organization [facility] Address 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 Gender Identity Not on file Sexual Orientation Not on file documented as of this encounter Plan of Treatment Upcoming Encounters Date Type Department Care Team (Late st Contact Info) Description 10/07/2024 3:45 PM CDT Office Visit [facility] Rheumatology Girma Rocha [address] [facility] [address] [place] [address] [place] [address] [facility] [address] [place] [address] documented as of this encounter Visit Diagnoses Diagnosis Infections of genitourinary tract antepartum- Primary documented in this encounter Care Teams Singing Teacher Relationship Specialty Start Date End Date Gely Carroll MD [address] [place] [address] [place] [address] PCP - General Internal Medicine 11/09/23 documented as of this encounter
--- OUTSIDE RECORDS SUMMARY | 2024-08-10 09:17 | XMS_ITS | Encounter Summary ---
Author Organization [facility] Address [address] [place] [address] Care Team Providers Care Build Master Name Role Phone Gely Carroll MD Primary Care Provider [phone] Encounter Details Date Type Department Care Team (Latest Contact Info) Description 09/11/2006 Inpatient Historical HIS [facility] Jean Gutierrez MD [address] [facility] [address] [place] [address] Second-Degree Perineal Laceration, with Delivery (Primary Dx) Social History Tobacco Use Types Packs/Day Years Used Date Smoking Tobacco: Never Assessed Comments Unknown Sex and Gender Information Value Date Recorded Sex Assigned at Not on file 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 Gender Identity Not on file Sexual Orientation Not on file documented as of this encounter Plan of Treatment Upcoming Encounters Date Type Department Care Team (Late st Contact Info) Description 10/07/2024 3:45 PM CDT Office Visit [facility] Rheumatology Britton Rocha [address] [place] [address] [place] [address] [facility] [address] [place] [address] documented as of this encounter Visit Diagnoses Diagnosis Second-degree perineal laceration, with delivery- Primary documented in this encounter Care Teams Build Master Relationship Specialty Start Date End Date Gely Carroll MD [facility] [place] [address] PCP - General Internal Medicine 11/09/23 documented as of this encounter
--- OUTSIDE RECORDS SUMMARY | 2024-08-10 09:17 | XMS_ITS | Encounter Summary ---
Author Organization [facility] Address [address] [place] [address] Care Team Providers Care Manager Mining Name Role Phone Gely Carroll MD Primary Care Provider [phone] Encounter Details Date Type Department Care Team (Latest Contact Info) Description 03/07/2006 Outpatient Historical HIS [facility] Jean Gutierrez MD [address] [facility] [address] [place] [address] Other Current Maternal Conditions Classifiable Elsewhere, Antepartum (Primary Dx) Social History Tobacco Use Types Packs/Day Years Used Date Smoking Tobacco: Never Assessed Comments Unknown Sex and Gender Information Value Date Recorded Sex Assigned at Not on file 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 Gender Identity Not on file Sexual Orientation Not on file documented as of this encounter Plan of Treatment Upcoming Encounters Date Type Department Care Team (Late st Contact Info) Description 10/07/2024 3:45 PM CDT Office Visit [facility] Rheumatology Britton Rocha [address] [place] [address] [place] [address] [place] [address] documented as of this encounter Visit Diagnoses Diagnosis Other current maternal conditions classifiable elsewhere, antepartum- Primary documented in this encounter Care Teams Manager Mining Relationship Specialty Start Date End Date Gely Carroll MD [address] [place] [address] [place] [address] PCP - General Internal Medicine 11/09/23 documented as of this encounter
--- OUTSIDE RECORDS SUMMARY | 2024-08-10 09:17 | XMS_ITS | Encounter Summary ---
Author Organization [facility] Address [address] [place] [address] Care Team Providers Care Booking Officer Name Role Phone Gely Carroll MD Primary Care Provider [phone] Encounter Details Date Type Department Care Team (Latest Contact Info) Description 08/09/2006 Outpatient Historical HIS PATIENT IN A BED MattJean MD [address] [facility] [address] [place] [address] Other Specified Complication, Antepartum (Primary Dx) Social History Tobacco Use Types Packs/Day Years Used Date Smoking Tobacco: Never Assessed Comments Unknown Sex and Gender Information Value Date Recorded Sex Assigned at Not on file 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 Gender Identity Not on file Sexual Orientation Not on file documented as of this encounter Plan of Treatment Upcoming Encounters Date Type Department Care Team (Late st Contact Info) Description 10/07/2024 3:45 PM CDT Office Visit [facility] Rheumatology Girma Rocha [address] [facility] [address] [place] [address] [place] [address] [facility] [address] [place] [address] documented as of this encounter Visit Diagnoses Diagnosis Other specified complication, antepartum(646.83)- Primary Other specified complication, antepartum documented in this encounter Care Teams Booking Officer Relationship Specialty Start Date End Date Gely Carroll MD [address] [place] [address] [place] [address] PCP - General Internal Medicine 11/09/23 documented as of this encounter
--- OUTSIDE RECORDS SUMMARY | 2024-08-10 09:17 | XMS_ITS | Encounter Summary ---
Author Organization [facility] Address 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 Gender Identity Not on file Sexual Orientation Not on file documented as of this encounter Plan of Treatment Upcoming Encounters Date Type Department Care Team (Late st Contact Info) Description 10/07/2024 3:45 PM CDT Office Visit [facility] Rheumatology Britton Rocha [address] [facility] [address] [place] [address] [place] [address] [address] [facility] [address] [place] [address] documented as of this encounter Visit Diagnoses Diagnosis Threatened premature labor, antepartum(644.03)- Primary Threatened premature labor, antepartum documented in this encounter Care Teams Prune Washer Relationship Specialty Start Date End Date Gely Carroll MD [address] [place] [address] [place] [address] PCP - General Internal Medicine 11/09/23 documented as of this encounter
--- OUTSIDE RECORDS SUMMARY | 2024-08-10 09:17 | XMS_ITS | Clinical Summary ---
Author Organization [facility] Address [address] [place] [address] Care Team Providers Care Knitted Garment Finisher Name Role Phone None, Provider MD Primary Care Provider Unavaila ble Allergies Active Allergy Reactions Criticality Noted Date Comments Morphine Vomiting 11/02/2021 Oxycodone-Acetaminophen Vomiting 11/02/2021 Medications traMADol (ULTRAM) 50 MG tabletIndication s:Acute Pain < 7 Day Supply Indications : Acute Pain < 7 Day Supply 1-2 tabs po q6 hours prn pain 10 tablet 11/02/2021 Active Social History Tobacco Use Types Packs/Day Years Used Date Smoking Tobacco: Never Assessed Comments No Sex and Gender Information Value Date Recorded Sex Assigned at Not on file Legal Sex Female 5:04 PM CDT Gender Identity Not on file Sexual Orientation Not on file Last Filed Vital Signs Vital Sign Reading Time Taken Comments Blood Pressure 126/100 11/02/2021 10:03 PM CDT Pulse 107 11/02/2021 10:03 PM CDT Temperature 36.3 C (97.4 F) 11/02/2021 5:20 PM CDT Respiratory Rate 18 11/02/2021 10:03 PM CDT Oxygen Saturation 99% 11/02/2021 10:03 PM CDT Inhaled Oxygen Concentration - - Weight 80.7 kg (178 lb) 11/02/2021 5:20 PM CDT Height 149.9 cm (4' 11 ) 11/02/2021 5:20 PM CDT Body Mass Index 35.95 11/02/2021 5:20 PM CDT Plan of Treatment Health Maintenance Due Date Last Done Comments Cervical Cancer Screening Pa p Smear (Age 30 to 64) Every 3 Years 1983 Annual Physical 1986 Hepatitis C 2001 DTaP, Tdap and Td Vaccines ( 1 - Tdap) 2002 Hepatitis B Vaccines (1 of 3 - 19+ 3-dose series) 2002 Cervical Cancer Screening Pa p with HPV Testing (Age 30 to 64) Every 5 Years 2013 Cervical Cancer Screening wi th HPV 2013 Mammogram Screening 2023 COVID-19 Vaccine (2 - 2023-2 5 season) 2024 09/27/2021 Influenza Adult (#1) 2024 05/24/2021, 03/03/2010 HPV Vaccines Aged Out No longer eligi ble based on patient's age to complete this topic Meningococcal B Vaccine Aged Out No l onger eligible based on patient's age to complete this topic Meningococcal Vaccine Aged Out No dong ekta eligible based on patient's age to complete this topic Pneumococcal Vaccine: Pediatrics (0 to 5 Years) and At-Risk Patients (6 to 64 Years) Aged Out No longer eligible b ased on patient's age to complete this topic RSV Immunizations Under 20 Months Aged Out No longer eligible b ased on patient's age to complete this topic Insurance Care Teams Knitted Garment Finisher Relationship Specialty Start Date End Date None, Provider, PCP - General 11/02/21
--- OUTSIDE RECORDS SUMMARY | 2024-08-10 09:17 | XMS_ITS | Encounter Summary ---
Author Organization [facility] Address [address] [place] [address] Care Team Providers Care Cupola Patcher Helper Name Role Phone Gely Carroll MD Primary Care Provider [phone] Encounter Details Date Type Department Care Team (Latest Contact Info) Description 02/08/2006 Outpatient Historical HIS [facility] Jean Gutierrez MD [address] [facility] [address] [place] [address] Other Current Maternal Conditions Classifiable Elsewhere, Antepartum (Primary Dx) Social History Tobacco Use Types Packs/Day Years Used Date Smoking Tobacco: Never Assessed Comments Unknown Sex and Gender Information Value Date Recorded Sex Assigned at Not on file 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 Gender Identity Not on file Sexual Orientation Not on file documented as of this encounter Plan of Treatment Upcoming Encounters Date Type Department Care Team (Late st Contact Info) Description 10/07/2024 3:45 PM CDT Office Visit [facility] Rheumatology Britton Rocha [address] [place] [address] [place] [address] [facility] [address] [place] [address] documented as of this encounter Procedures Procedure Name Priority Date/Time Associated Diagnosis Comments URINALYSIS W/REFLEX MICROSCOPIC Routine 02/08/2006 7:20 PM CDT CBC WITH DIFFERENTIAL Routine 02/08/2006 7:18 PM CDT CBC WITH DIFFERENTIAL Routine 02/08/2006 7:18 PM CDT documented in this encounter Results * (ABNORMAL) URINALYSIS (02/08/2006 7:20 PM CDT) COLOR UA Yellow INTERFACE SYSTEM CLARITY UA Slt. Cloudy(A) Clear INTERFACE SYSTEM SPECIFIC GRAVITY UA 1.020 1.001 - 1.035 INTERFACE SYSTEM PH UA 6.0 5.0 - 8.0 INTERFACE SYSTEM LEUKOCYTE ESTERASE UA Trace(A) Negative INTERFACE SYSTEM NITRITE UA Negative Negative INTERFACE SYSTEM PROTEIN UA Negative Negative INTERFACE SYSTEM GLUCOSE UA Negative Negative INTERFACE SYSTEM KETONES UA Negative Negative INTERFACE SYSTEM UROBILINOGEN UA <1 <1 mg/dL INTE RFACE SYSTEM BILIRUBIN UA Negative Negative INTERFA CE SYSTEM BLOOD UA Negative Negative INTERFACE SYSTEM WBC UA 7(H) 0 - 5 /HPF INTERFACE SYSTEM RBC UA 1 0 - 4 /HPF INTERFACE SYSTEM BACTERIA UA 1+(A) None Seen /HPF INTERFACE SYSTEM EPITHELIAL CELLS, URINE Many /HPF INTERFACE SYSTEM 02/08/2006 7:20 PM CDT Jean Gutierrez MD URINE ORDERABLES Final Result INTERFACE SYSTEM Refer to clinic/hospital department * CBC WITH DIFFERENTIAL (02/08/2006 7:18 PM CDT) Pathologist [facility] NEUTROPHIL ABSOLUTE 6.05 1.90 - 7.00 K/uL INTERFACE SYSTEM LYMPHOCYTE ABSOLUTE 3.07 0.70 - 4.50 K/uL INTERFACE SYSTEM MONOCYTE ABSOLUTE 0.38 0.10 - 1.30 K/uL INTERFACE SYSTEM EOSINOPHIL ABSOLUTE 0.00 0.00 - 0.70 K/uL INTERFACE SYSTEM BASOPHILS ABSOLUTE 0.10 0.00 - 0.20 K/uL INTERFACE SYSTEM NEUTROPHILS, SEG 63 45 - 70 % INTERFACE SYSTEM LYMPHOCYTES 32 16 - 45 % INTERFAC E SYSTEM MONOCYTES 4 3 - 13 % INTERFACE SYSTEM EOSINOPHILS 0 0 - 7 % INTERFAC E SYSTEM BASOPHILS 1 0 - 2 % INTERFACE SYSTEM PLATELET EST. Consistent w/ count Normal INTERFACE SYSTEM RBC MORPHOLOGY Normal Normal INTER FACE SYSTEM REVIEWED ON SMEAR Plt OK by Smear Rev. INTERFACE SYSTEM 02/08/2006 7:18 PM CDT Jean Gutierrez MD HEMATOLOGY ORDERABLES Final Result INTERFACE SYSTEM Refer to clinic/hospital department * CBC WITH DIFFERENTIAL (02/08/2006 7:18 PM CDT) WBC 9.6 4.0 - 9.8 K/uL INTERFACE SYSTEM RBC 4.14 3.90 - 4.90 M/uL INTERFACE SYSTEM HEMOGLOBIN 13.2 11.8 - 14.8 g/dL INTERFACE SYSTEM HEMATOCRIT 38.7 35.5 - 44.0 % INTERFACE SYSTEM MCV 93.5 82.0 - 99.0 fL INTERFACE SYSTEM MCH 31.9 27.2 - 32.6 pg INTERFACE SYSTEM MCHC 34.1 31.5 - 35.5 % INTERFACE SYSTEM RDW 12.8 11.5 - 14.5 % INTERFACE SYSTEM RDW-STDEV 43.8 37.1 - 48.7 fL INTERFACE SYSTEM PLATELETS 275 140 - 350 K/uL INTERFACE SYSTEM MPV 9.5 9.3 - 12.4 fL INTERFACE SYSTEM 02/08/2006 7:18 PM CDT Jean Gutierrez MD HEMATOLOGY ORDERABLES Final Result Performing Organization Address City/[facility] Co de Phone Number INTERFACE SYSTEM Refer to clinic/hospital department documented in this encounter Visit Diagnoses Diagnosis Other current maternal conditions classifiable elsewhere, antepartum- Primary documented in this encounter Care Teams Cupola Patcher Helper Relationship Specialty Start Date End Date Gely Carroll MD [address] [place] [address] PCP - General Internal Medicine 11/09/23 documented as of this encounter
--- OUTSIDE RECORDS SUMMARY | 2024-08-10 09:17 | XMS_ITS | Encounter Summary ---
Author Organization [facility] Address [address] [place] [address] Care Team Providers Care Developmental Specialist Name Role Phone Gely Carroll MD Primary Care Provider [phone] Encounter Details Date Type Department Care Team (Latest Contact Info) Description 08/19/2006 Outpatient Historical HIS PATIENT IN A BED (Excluded Provider) Woody Maxwell MD NO ADDRESS ON FILE Jean Gutierrez MD [address] [facility] [address] [place] [address] Threatened Premature Labor, Antepartum (Primary Dx) Social History Tobacco Use Types Packs/Day Years Used Date Smoking Tobacco: Never Assessed Comments Unknown Sex and Gender Information Value Date Recorded Sex Assigned at Not on file 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 Gender Identity Not on file Sexual Orientation Not on file documented as of this encounter Plan of Treatment Upcoming Encounters Date Type Department Care Team (Late st Contact Info) Description 10/07/2024 3:45 PM CDT Office Visit [facility] Rheumatology Britton Rocha [address] [place] [address] [place] [address] [facility] [address] [place] [address] documented as of this encounter Procedures Procedure Name Priority Date/Time Associated Diagnosis Comments URINALYSIS W/REFLEX MICROSCOPIC Routine 08/19/2006 8:43 AM SUPERVISOR PRESS ROOM documented in this encounter Results * URINALYSIS (08/19/2006 8:43 AM SUPERVISOR PRESS ROOM) COLOR UA Pale Yellow INTERFAC E SYSTEM CLARITY UA Clear Clear INTERFACE SYSTEM SPECIFIC GRAVITY UA 1.008 1.001 - 1.035 INTERFACE SYSTEM PH UA 6.5 5.0 - 8.0 INTERFACE SYSTEM LEUKOCYTE ESTERASE UA Negative Negative INTERFACE SYSTEM NITRITE UA Negative Negative INTERFACE SYSTEM PROTEIN UA Negative Negative INTERFACE SYSTEM GLUCOSE UA Negative Negative INTERFACE SYSTEM KETONES UA Negative Negative INTERFACE SYSTEM UROBILINOGEN UA <1 <=1 mg/dL INTE RFACE SYSTEM BILIRUBIN UA Negative Negative INTERFA CE SYSTEM BLOOD UA Negative Negative INTERFACE SYSTEM 08/19/2006 8:43 AM SUPERVISOR PRESS ROOM us Jean Gutierrez MD URINE ORDERABLES Edite d INTERFACE SYSTEM Refer to clinic/hospital department documented in this encounter Visit Diagnoses Diagnosis Threatened premature labor, antepartum(644.03)- Primary Threatened premature labor, antepartum documented in this encounter Care Teams Developmental Specialist Relationship Specialty Start Date End Date Gely Carroll MD [address] [place] [address] [place] [address] PCP - General Internal Medicine 11/09/23 documented as of this encounter
--- OUTSIDE RECORDS SUMMARY | 2024-08-10 09:17 | XMS_ITS | Encounter Summary ---
Author Organization [facility] Address [address] [place] [address] Care Team Providers Care Tax Services Specialist Name Role Phone Gely Carroll MD Primary Care Provider [phone] Encounter Details Date Type Department Care Team (Latest Contact Info) Description 01/01/2004 Outpatient Historical HIS [facility] [place] [address] [place] [address] CONJUNCTIVITIS NOS (Primary Dx) Social History Tobacco Use Types Packs/Day Years Used Date Smoking Tobacco: Never Assessed Comments Unknown Sex and Gender Information Value Date Recorded Sex Assigned at Not on file 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 Gender Identity Not on file Sexual Orientation Not on file documented as of this encounter Plan of Treatment Upcoming Encounters Date Type Department Care Team (Late st Contact Info) Description 10/07/2024 3:45 PM CDT Office Visit [facility] Rheumatology Britton Rocha [address] [facility] [address] [place] [address] [place] [address] [facility] [address] [place] [address] documented as of this encounter Visit Diagnoses Diagnosis Conjunctivitis unspecified- Primary Conjunctivitis, unspecified documented in this encounter Care Teams Tax Services Specialist Relationship Specialty Start Date End Date Gely Carroll MD [address] [place] [address] [place] [address] PCP - General Internal Medicine 11/09/23 documented as of this encounter
--- OUTSIDE RECORDS SUMMARY | 2024-08-10 09:17 | XMS_ITS | Encounter Summary ---
Author Organization [facility] Address 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 Gender Identity Not on file Sexual Orientation Not on file documented as of this encounter Plan of Treatment Upcoming Encounters Date Type Department Care Team (Late st Contact Info) Description 10/07/2024 3:45 PM CDT Office Visit [facility] Rheumatology Britton Rocha [address] [facility] [address] [place] [address] [place] [address] [facility] [address] [place] [address] documented as of this encounter Procedures Procedure Name Priority Date/Time Associated Diagnosis Comments BETA STREP ONLY CULTURE Routine 04/09/2008 11:19 AM CDT documented in this encounter Results * BETA STREP ONLY CULTURE (04/09/2008 11:19 AM CDT) PRELIMINARY REPORT Pending [facility] FINAL REPORT No Group A, C, or G beta Streptococcus isolated. [facility] Specimen from throat (specimen) 04/09/2008 11:19 AM CDT 04/09/2008 10:19 PM CDT us Andrew Frankel MD MICROBIOLOGY - GENERAL ORDERABL ES Final Result INTERFACE SYSTEM Refer to clinic/hospital department [facility] CLIA# [id number] [address] [place] [address] documented in this encounter Visit Diagnoses Not on filedocumented in this encounter Care Teams Trapeze Artist Relationship Specialty Start Date End Date Gely Carroll MD [address] [place] [address] PCP - General Internal Medicine 11/09/23 documented as of this encounter
--- OUTSIDE RECORDS SUMMARY | 2024-08-10 09:17 | XMS_ITS | Encounter Summary ---
Author Organization [facility] Address [address] [place] [address] Care Team Providers Care Business Analyst Ecommerce Name Role Phone Gely Carroll MD Primary Care Provider [phone] Encounter Details Date Type Department Care Team (Late st Contact Info) Description 03/07/2006 Outpatient Historical HIS [facility] Desirae Lopez [place] [facility] [address] [place], Authorized P NO ADDRESS ON FILE Other Current Maternal Conditions Classifiable Elsewhere, Antepartum (Primary Dx) Social History Tobacco Use Types Packs/Day Years Used Date Smoking Tobacco: Never Assessed Comments Unknown Sex and Gender Information Value Date Recorded Sex Assigned at Not on file 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 Gender Identity Not on file Sexual Orientation Not on file documented as of this encounter Plan of Treatment Upcoming Encounters Date Type Department Care Team (Late st Contact Info) Description 10/07/2024 3:45 PM CDT Office Visit [facility] Rheumatology Britton Rocha [address] [facility] [address] [place] [address] [place] [address] [address] [facility] [address] [place] [address] documented as of this encounter Visit Diagnoses Diagnosis Other current maternal conditions classifiable elsewhere, antepartum- Primary documented in this encounter Care Teams Business Analyst Ecommerce Relationship Specialty Start Date End Date Gely Carroll MD [address] [place] [address] [place] [address] PCP - General Internal Medicine 11/09/23 documented as of this encounter
--- OUTSIDE RECORDS SUMMARY | 2024-08-10 09:17 | XMS_ITS | Encounter Summary ---
Author Organization [facility] Address [address] [place] [address] Care Team Providers Care Mission Systems Engineer Name Role Phone Gely Carroll MD Primary Care Provider [phone] Encounter Details Date Type Department Care Team (Latest Contact Info) Description 08/01/2006 Outpatient Historical [place] [facility] [place] [address] [facility] [address] [place] [address] Acute Upper Respiratory Infections of Unspecified Site (Primary Dx) Social History Tobacco Use Types Packs/Day Years Used Date Smoking Tobacco: Never Assessed Comments Unknown Sex and Gender Information Value Date Recorded Sex Assigned at Not on file 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 Rheumatology Britton Rocha [address] [facility] [address] [place] [address] [place] [address] [address] [place] [address] documented as of this encounter Visit Diagnoses Diagnosis Acute upper respiratory infections of unspecified site- Primary documented in this encounter Care Teams Mission Systems Engineer Relationship Specialty Start Date End Date Gely Carroll MD [address] [place] [address] [place] [address] PCP - General Internal Medicine 11/09/23 documented as of this encounter
--- OUTSIDE RECORDS SUMMARY | 2024-08-10 09:17 | XMS_ITS | Encounter Summary ---
Author Organization [facility] Address 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 Rheumatology Britton Rocha [address] [place] [address] [place] [address] [facility] [address] [place] [address] documented as of this encounter Visit Diagnoses Diagnosis Scarlet fever- Primary documented in this encounter Care Teams Certified Professional Ergonomist Relationship Specialty Start Date End Date eGly Carroll MD [address] [place] [address] [employer] [place] [address] PCP - General Internal Medicine 11/09/23 documented as of this encounter
--- OUTSIDE RECORDS SUMMARY | 2024-08-10 09:17 | XMS_ITS | Encounter Summary ---
Author Organization [facility] Address [address] [place] [address] Care Team Providers Care Plush Brusher Name Role Phone Gely Carroll MD Primary Care Provider [phone] Encounter Details Date Type Department Care Team (Late st Contact Info) Description 11/24/2008 Outpatient Historical [place] [facility] [place] [address] [place] [employer] [address] [place] [address] Social History Tobacco Use Types Packs/Day Years Used Date Smoking Tobacco: Never Assessed Comments Unknown Sex and Gender Information Value Date Recorded Sex Assigned at Not on file 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 Rheumatology Britton Rocha [address] [facility] [address] [place] [address] [place] [address] [facility] [address] [place] [address] documented as of this encounter Procedures Procedure Name Priority Date/Time Associated Diagnosis Comments STREPTOCOCCUS GROUP A CULTURE Routine 11/24/2008 8:02 PM CDT documented in this encounter Results * STREPTOCOCCUS GROUP A CULTURE (11/24/2008 8:02 PM CDT) PRELIMINARY REPORT Pending [facility] FINAL REPORT No Group A, C, or G beta Streptococcus isolated. [facility] Specimen from throat (specimen) 11/24/2008 8:02 PM CDT 11/25/2008 11:58 AM CDT Saige Desai MD MICROBIOLOGY - GENERAL YU LOERA Final Result Performing Organization Address City/[facility] Co de Phone Number INTERFACE SYSTEM Refer to clinic/hospital department [facility] CLIA# [id number] [address] [place] [address] documented in this encounter Visit Diagnoses Not on filedocumented in this encounter Care Teams Plush Brusher Relationship Specialty Start Date End Date Gely Carroll MD [address] [place] [address] [place] [address] PCP - General Internal Medicine 11/09/23 documented as of this encounter
--- OUTSIDE RECORDS SUMMARY | 2024-08-10 09:17 | XMS_ITS | Encounter Summary ---
Author Organization [facility] Address [address] [place] [address] Care Team Providers Care Dragline Engineer Name Role Phone Gely Carroll MD Primary Care Provider [phone] Encounter Details Date Type Department Care Team (Latest Contact Info) Description 02/05/2006 Outpatient Historical HIS PATIENT IN A BED Jean Gutierrez MD [address] [facility] [address] [place] [address] Mild Hyperemesis Gravidarum, Antepartum (Primary Dx) Social History Tobacco Use Types Packs/Day Years Used Date Smoking Tobacco: Never Assessed Comments Unknown Sex and Gender Information Value Date Recorded Sex Assigned at Not on file Legal Sex Female 3:26 AM PIECER UP Gender Identity Not on file Sexual Orientation Not on file documented as of this encounter Plan of Treatment Upcoming Encounters Date Type Department Care Team (Late st Contact Info) Description 10/07/2024 3:45 PM CDT Office Visit [facility] Rheumatology Britton Rocha [address] [place] [address] [place] [address] [facility] [address] [place] [address] documented as of this encounter Procedures Procedure Name Priority Date/Time Associated Diagnosis Comments URINALYSIS W/REFLEX MICROSCOPIC Routine 02/05/2006 9:04 PM CDT documented in this encounter Results * (ABNORMAL) URINALYSIS (02/05/2006 9:04 PM CDT) COLOR UA Yellow INTERFACE SYSTEM CLARITY UA Clear Clear INTERFACE SYSTEM SPECIFIC GRAVITY UA 1.025 1.001 - 1.035 INTERFACE SYSTEM PH UA 6.0 5.0 - 8.0 INTERFACE SYSTEM LEUKOCYTE ESTERASE UA 2+(A) Negative INTERFACE SYSTEM NITRITE UA Negative Negative INTERFACE SYSTEM PROTEIN UA Trace(A) Negative INTERFACE SYSTEM GLUCOSE UA 3+(A) Negative INTERFACE SYSTEM KETONES UA Trace(A) Negative INTERFACE SYSTEM UROBILINOGEN UA <1 <=1 mg/dL INTE RFACE SYSTEM BILIRUBIN UA Negative Negative INTERFA CE SYSTEM BLOOD UA Negative Negative INTERFACE SYSTEM WBC UA 9(H) 0 - 5 /HPF INTERFACE SYSTEM RBC UA 2 0 - 4 /HPF INTERFACE SYSTEM BACTERIA UA 1+(A) None Seen /HPF INTERFACE SYSTEM EPITHELIAL CELLS, URINE 2-5 /HPF INTERFACE SYSTEM CA OXALATE CRYSTAL Rare /HPF INTERFACE SYSTEM 02/05/2006 9:04 PM CDT us Jean Gutierrez MD URINE ORDERABLES Final Result INTERFACE SYSTEM Refer to clinic/hospital department documented in this encounter Visit Diagnoses Diagnosis Mild hyperemesis gravidarum, antepartum- Primary documented in this encounter Care Teams Dragline Engineer Relationship Specialty Start Date End Date Gely Carroll MD [address] [place] [address] PCP - General Internal Medicine 11/09/23 documented as of this encounter
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
--- OUTSIDE RECORDS SUMMARY | 2024-08-10 09:17 | XMS_ITS | Encounter Summary ---
Author Organization [facility] Address 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 Gender Identity Not on file Sexual Orientation Not on file documented as of this encounter Plan of Treatment Upcoming Encounters Date Type Department Care Team (Late st Contact Info) Description 10/07/2024 3:45 PM CDT Office Visit [facility] Rheumatology Girma Rocha [address] [facility] [address] [place] [address] [place] [address] [facility] [address] [place] [address] documented as of this encounter Visit Diagnoses Diagnosis Normal delivery- Primary documented in this encounter Care Teams Ancient Art Curator Relationship Specialty Start Date End Date Gely Carroll MD [address] [place] [address] [place] [address] PCP - General Internal Medicine 11/09/23 documented as of this encounter
--- OUTSIDE RECORDS SUMMARY | 2024-08-10 09:17 | XMS_ITS | Encounter Summary ---
Author Organization [facility] Address [address] [place] [address] Care Team Providers Care Air Intelligence Specialist Name Role Phone Gely Carroll MD Primary Care Provider [phone] Encounter Details Date Type Department Care Team (Latest Contact Info) Description 08/19/2006 Outpatient Historical HIS PATIENT IN A BED (Excluded Provider) Woody Maxwell MD NO ADDRESS ON FILE Jean Gutierrez MD [address] [facility] [address] [place] [address] Threatened Premature Labor, Antepartum (Primary Dx) Social History Tobacco Use Types Packs/Day Years Used Date Smoking Tobacco: Never Assessed Comments Unknown Sex and Gender Information Value Date Recorded Sex Assigned at Not on file Legal Sex 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 Gender Identity Not on file Sexual Orientation Not on file documented as of this encounter Plan of Treatment Upcoming Encounters Date Type Department Care Team (Late st Contact Info) Description 10/07/2024 3:45 PM CDT Office Visit [facility] Rheumatology Britton Rocha [address] [place] [address] [place] [address] [facility] [address] [place] [address] documented as of this encounter Visit Diagnoses Diagnosis Threatened premature labor, antepartum(644.03)- Primary Threatened premature labor, antepartum documented in this encounter Care Teams Air Intelligence Specialist Relationship Specialty Start Date End Date Gely Carroll MD [address] [place] [address] [place] [address] PCP - General Internal Medicine 11/09/23 documented as of this encounter
--- OUTSIDE RECORDS SUMMARY | 2024-08-10 09:17 | XMS_ITS | Encounter Summary ---
Author Organization [facility] Address [address] [place] [address] Care Team Providers Care Aix Architect Name Role Phone Gely Carroll MD Primary Care Provider [phone] Encounter Details Date Type Department Care Team (Late st Contact Info) Description 09/22/[address] [facility] [place] [address] [place] [address] Social History Tobacco Use Types Packs/Day Years Used Date Smoking Tobacco: Never Assessed Comments Unknown Sex and Gender Information Value Date Recorded Sex Assigned at Not on file Legal Sex Female 3:26 AM WEB ANALYTICS DEVELOPER Gender Identity Not on file Sexual Orientation Not on file documented as of this encounter Plan of Treatment Upcoming Encounters Date Type Department Care Team (Late st Contact Info) Description 10/07/2024 3:45 PM CDT Office Visit [facility] Britton Rocha [address] [facility] [address] [place] [address] [place] [address] [address] [facility] [address] [place] [address] documented as of this encounter Procedures Procedure Name Priority Date/Time Associated Diagnosis Comments C. DIFFICILE DETECTION Routine 09/22/2008 4:52 PM CDT OVA AND PARASITE SCREEN Routine 09/22/2008 4:52 PM CDT STOOL CULTURE W/SHIGA TOXIN Routine 09/22/2008 4:52 PM CDT documented in this encounter Results * STOOL CULTURE (09/22/2008 4:52 PM CDT) PRELIMINARY REPORT Only Gram Positive fecal david isolated No Salmonella isolated. No Shigella isolated. No Escherichia coli serogroup O157:H7 isolated. [facility] FINAL REPORT Only Gram Positive fecal david isolated No Salmonella isolated. No Shigella isolated. No Escherichia coli serogroup O157:H7 isolated. No Camplylobacter isolated. [facility] Stool specimen (specimen) 09/22/2008 4:52 PM CDT 09/22/2008 5:42 PM CDT Andrew Frankel MD MICROBIOLOGY - GENERAL ORDERABL ES Final Result Performing Organization Address [facility] Phone Number INTERFACE SYSTEM Refer to clinic/hospital department [facility] CLIA# [id number] [address] [place] [address] * CLOSTRIDIUM DIFFICILE TOXIN (09/22/2008 4:52 PM CDT) FINAL REPORT NO Clostridium difficile Toxin A or B detected by EIA. A negative result does not rule out C. difficile associated diarrhea or colitis. [facility] Stool specimen (specimen) 09/22/2008 4:52 PM CDT 09/22/2008 5:42 PM CDT Andrew Frankel MD MICROBIOLOGY - GENERAL ORDERABL ES Final Result Performing Organization Address [facility] de Phone Number INTERFACE SYSTEM Refer to clinic/hospital department [facility] CLIA# [id number] [address] [place] [address] * OVA AND PARASITE SCREEN (09/22/2008 4:52 PM CDT) PRELIMINARY REPORT Pending [facility] FINAL REPORT Concentratio n: No ova or parasites seen. Trichrome: No ova or parasites seen. [facility] Stool specimen (specimen) 09/22/2008 4:52 PM CDT 09/22/2008 5:42 PM CDT Narrative INTERFACE SYSTEM - 09/26/2008 1:01 PM CDT Performed by [address] [address] Performed by [address] [address] Andrew Frankel MD MICROBIOLOGY - GENERAL ORDERABL ES Final Result INTERFACE SYSTEM Refer to clinic/hospital department [facility] CLIA# [id number] [address] [place] [address] documented in this encounter Visit Diagnoses Not on filedocumented in this encounter Care Teams Aix Architect Relationship Specialty Start Date End Date Gely Carroll MD [address] [place] [address] [place] [address] PCP - General Internal Medicine 11/09/23 documented as of this encounter
--- OUTSIDE RECORDS SUMMARY | 2024-08-10 09:17 | XMS_ITS | Encounter Summary ---
Author Organization [employer] Address 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 Gender Identity Not on file Sexual Orientation Not on file documented as of this encounter Plan of Treatment Upcoming Encounters Date Type Department Care Team (Late st Contact Info) Description 10/07/2024 3:45 PM CDT Office Visit [facility] Rheumatology Britton Rocha [address] [facility] [address] [place] [address] [place] [address] [facility] [address] [place] [address] documented as of this encounter Visit Diagnoses Diagnosis Unspecified local infection of skin and subcutaneous tissue- Primary documented in this encounter Care Teams Delimer Relationship Specialty Start Date End Date Gely Carroll MD [address] [place] [address] [place] [address] PCP - General Internal Medicine 11/09/23 documented as of this encounter
--- OUTSIDE RECORDS SUMMARY | 2024-08-10 10:04 | XMS_ITS | Encounter Summary ---
Author Organization [employer] Address [address] [place] [address] Care Team Providers Care Batch Unloader Name Role Phone Gely Carroll MD Primary Care Provider Encounter Details Date Type Department Care Team (Late st Contact Info) Description 12/19/2007 Outpatient Historical HIS [facility] [place] [address] [place] [address] Social History Tobacco Use Types Packs/Day Years Used Date Smoking Tobacco: Never Assessed Comments Unknown Sex and Gender Information Value Date Recorded Sex Assigned at Not on file Legal Sex Female 3:26 AM COMFORT FILLER Gender Identity Not on file Sexual Orientation Not on file documented as of this encounter Plan of Treatment Upcoming Encounters Date Type Department Care Team (Late st Contact Info) Description 10/07/2024 3:45 PM CDT Office Visit [facility] Rheumatology Britton Rocha [address] [facility] [address] [place] [address] [place] [address] [address] [facility] [address] [place] [address] documented as of this encounter Visit Diagnoses Not on filedocumented in this encounter Care Teams Batch Unloader Relationship Specialty Start Date End Date Gely Carroll MD [address] [place] [address] PCP - General Internal Medicine 11/09/23 documented as of this encounter
--- OUTSIDE RECORDS SUMMARY | 2024-08-10 10:04 | XMS_ITS | Encounter Summary ---
Author Organization [employer] [facility] Address [address] [place] [address] Care Team Providers Care Blue Line Hanger Name Role Phone Gely Carroll MD Primary Care Provider Encounter Details Date Type Department Care Team (Late st Contact Info) Description 08/10/2008 Outpatient Historical HIS [facility] Becky Wall MD [address] [place] [address] Social History Tobacco Use Types Packs/Day Years Used Date Smoking Tobacco: Never Assessed Comments Unknown Sex and Gender Information Value Date Recorded Sex Assigned at Not on file Legal Sex Female 3:26 AM CURVE SAW OPERATOR Gender Identity Not on file Sexual Orientation Not on file documented as of this encounter Plan of Treatment Upcoming Encounters Date Type Department Care Team (Late st Contact Info) Description 10/07/2024 3:45 PM CDT Office Visit [facility] Britton Rocha [address] [facility] [address] [place] [address] [place] [address] [address] [facility] [address] [place] [address] documented as of this encounter Procedures Procedure Name Priority Date/Time Associated Diagnosis Comments BETA STREP ONLY CULTURE Routine 08/10/2008 1:26 PM CURVE SAW OPERATOR URINE CULTURE Routine 08/10/2008 1:26 PM CURVE SAW OPERATOR documented in this encounter Results * BETA STREP ONLY CULTURE (08/10/2008 1:26 PM CURVE SAW OPERATOR) FINAL REPORT No Group A, C, or G beta Streptococcus isolated. [facility] Specimen from throat (specimen) 08/10/2008 1:26 PM CURVE SAW OPERATOR 08/10/2008 8:15 PM CURVE SAW OPERATOR Becky Bowling MD MICROBIOLOGY - GENERAL ORDERABL ES Final Result Performing Organization Address [facility] de Phone Number INTERFACE SYSTEM Refer to clinic/hospital department [facility] CLIA# [id number] [address] [place] [place] [address] * URINE CULTURE (08/10/2008 1:26 PM CURVE SAW OPERATOR) FINAL REPORT Polymicrobial growth present consistent with urethral david and/or colonizing bacteria. [facility] 08/10/2008 1:26 PM CURVE SAW OPERATOR 08/10/2008 8:15 PM CURVE SAW OPERATOR Becky Bowling MD MICROBIOLOGY - GENERAL ORDERABL ES Final Result Performing Organization Address [facility] de Phone Number INTERFACE SYSTEM Refer to clinic/hospital department [facility] CLIA# [id number] [address] [place] [address] documented in this encounter Visit Diagnoses Not on filedocumented in this encounter Care Teams Blue Line Hanger Relationship Specialty Start Date End Date Gely Carroll MD [address] [place] [address] PCP - General Internal Medicine 11/09/23 documented as of this encounter
--- OUTSIDE RECORDS SUMMARY | 2024-08-10 10:04 | XMS_ITS | Encounter Summary ---
Author Organization Address 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 Gender Identity Not on file Sexual Orientation Not on file documented as of this encounter Plan of Treatment Upcoming Encounters Date Type Department Care Team (Late st Contact Info) Description 10/07/2024 3:45 PM CDT Office Visit [facility] Rheumatology Britton Rocha [address] [facility] [address] [place] [address] [place] [address] [facility] [address] [place] [address] documented as of this encounter Procedures Procedure Name Priority Date/Time Associated Diagnosis Comments BETA STREP ONLY CULTURE Routine 11/28/2007 11:43 AM CDT documented in this encounter Results * BETA STREP ONLY CULTURE (11/28/2007 11:43 AM CDT) PRELIMINARY REPORT Pending [facility] FINAL REPORT No Group A, C, or G beta Streptococcus isolated. [facility] Specimen from throat (specimen) 11/28/2007 11:43 AM CDT 11/28/2007 6:08 PM CDT us Haile Javier MD MICROBIOLOGY - GENERAL ORDER DARINEL Final Result [facility] CLIA# [id number] [address] [place] [address] documented in this encounter Visit Diagnoses Not on filedocumented in this encounter Care Teams Assistant Tennis Coach Relationship Specialty Start Date End Date Gely Carroll MD [address] [place] [address] PCP - General Internal Medicine 11/09/23 documented as of this encounter
--- OUTSIDE RECORDS SUMMARY | 2024-08-10 10:04 | XMS_ITS | Encounter Summary ---
Author Organization [employer] [facility] Address [address] [place] [address] Care Team Providers Care Forex Trader Name Role Phone Gely Carroll MD Primary Care Provider [phone] Encounter Details Date Type Department Care Team [...] on file Legal Sex Female 3:26 AM CASSANDRA CONSULTANT Gender Identity Not on file Sexual Orientation Not on file documented as of this encounter Plan of Treatment Upcoming Encounters Date Type Department Care Team (Late st Contact Info) Description 10/07/2024 3:45 PM CDT Office Visit [facility] Rheumatology Britton Rocha [address] [facility] [address] [place] [address] [place] [address] [place] [address] documented as of this encounter Visit Diagnoses Diagnosis Other current maternal conditions classifiable elsewhere, antepartum- Primary documented in this encounter Care Teams Forex Trader Relationship Specialty Start Date End Date Gely Carroll MD [facility] [place] [address] PCP - General Internal Medicine 11/09/23 documented as of this encounter
--- OUTSIDE RECORDS SUMMARY | 2024-08-10 10:04 | XMS_ITS | Clinical Summary ---
Author Organization [employer] [facility] on Address [address] [place] [address] Phone Care Team Providers Care Brigadier Name Role Phone Gely Carroll MD Primary Care Provider [phone] Allergies Active Allergy Reactions Criticality Noted Date [...] 4 Active fluticasone propionate (FLONASE) 50 mcg/spray [place], Suspension nasal inhalerIndicatio ns:Seasonal allergic rhinitis, unspecified [...] Department Care Team Description 08/08/2024 2:20 PM WASTE MACHINE OFFBEARER Procedure visit [facility] [address] [place] [address] Issue of repeat prescription for medication (Primary Dx) 08/07/2024 External Device Data STL ABSTRACTION Provider, Abstract 08/02/2024 Refill [facility] [address] [place] [address] Gely Carroll MD Depression with anxiety 07/23/2024 External Device Data STL ABSTRACTION Provider, Abstract 07/19/2024 [facility] [address] [place] [address] Gely Carroll MD 07/10/2024 External Device Data STL ABSTRACTION Provider, Abstract 07/04/2024 2:30 PM WASTE MACHINE OFFBEARER Office Visit [place] [address] [place] [address] Gely Carroll MD Depression with anxiety (Primary Dx); Declined influenza vaccine; Prediabetes; Obstructive sleep apnea syndrome; Pure hypercholesterolemia ; Low vitamin D level; Low vitamin B12 level; Breast cancer screening by mammogram 07/01/2024 7:40 AM WASTE MACHINE OFFBEARER Procedure visit [facility] [place] [address] [place] [address] Low vitamin B12 level; Low vitamin D level; Screening for condition 06/26/2024 Refill [facility] [place] [address] [place] [address] Gely Carroll MD Stress incontinence 06/04/2024 9:00 AM WASTE MACHINE OFFBEARER Office Visit [place] [address] [place] [address] Gely Carroll MD Depression with anxiety (Primary [...] on file Legal Sex Female 3:26 AM WASTE MACHINE OFFBEARER Gender Identity Not on file Sexual Orientation Not on file Occupation Industry Job Start Date Job End Date Not on file Not on file Not on file Not on file Last Filed Vital Signs Vital Sign Reading Time Taken Comments Blood Pressure 116/84 07/04/2024 2:37 PM WASTE MACHINE OFFBEARER Pulse 68 07/04/2024 2:37 PM WASTE MACHINE OFFBEARER Temperature 36.7 C (98 F) 07/04/2024 2:37 PM WASTE MACHINE OFFBEARER Respiratory Rate 18 07/04/2024 2:37 PM WASTE MACHINE OFFBEARER Oxygen Saturation 97% 07/04/2024 2:37 PM WASTE MACHINE OFFBEARER Inhaled Oxygen Concentration - - Weight 80.9 kg (178 lb 6.4 oz) 07/04/2024 2:37 P M WASTE MACHINE OFFBEARER Height 147.3 cm (4' 10 ) 07/04/2024 2:37 PM WASTE MACHINE OFFBEARER Body Mass Index 37.29 07/04/2024 2:37 PM WASTE MACHINE OFFBEARER Plan of Treatment Upcoming Encounters Date Type Department Care Team (Late st Contact Info) Description 10/07/2024 3:45 PM CDT Office Visit [facility] Britton Rocha [address] [facility] [address] [place] [address] [place] [address] [address] [place] [address] Health Maintenance Due Date Last Done [...] Comments HEMOGLOBIN A1C Routine 07/01/2024 7:25 AM WASTE MACHINE OFFBEARER Screening for condition LIPID PANEL Routine 07/01/2024 7:25 AM WASTE MACHINE OFFBEARER Screening for condition VITAMIN D 25 HYDROXY Routine 07/01/2024 7:25 AM WASTE MACHINE OFFBEARER Low vitamin D level VITAMIN B12 LEVEL Routine 07/01/2024 7:2 5 AM WASTE MACHINE OFFBEARER Low vitamin B12 level CERV/VAG CYTO SCREEN PAP W/HPV Routine 11/16/2016 Encounter for gynecological examination without abnormal finding from Last 3 Months or Most Recently Relevant to Health Maintenance Results * VITAMIN D 25 HYDROXY (07/01/2024 7:25 AM WASTE MACHINE OFFBEARER) VITAMIN D, 25 OH, TOTAL 40 30 - 100 ng/mL [facility] Comment: Vitamin D Status 25-OH Vitamin D: Deficiency: <20 ng/mL Insufficiency: 20 - 29 ng/mL Optimal: > or = 30 ng/mL For 25-OH Vitamin D testing on patients on D2-supplementation and patients for whom quantitation of D2 and D3 fractions is required, the [facility]() 25-OH VIT D, (D2,D3), LC/MS/MS is recommended: order code [id number] (patients >2yrs). See Note 1 Note 1 For additional information, please refer to http://education.Comuto/faq/NDT127 (This link is being provided for informational/ educational purposes only.) Test Performed at: [facility] [address] [place] [address] Kendell Castañeda MD Blood 07/01/2024 7:25 AM WASTE MACHINE OFFBEARER 07/02/2024 6:08 AM WASTE MACHINE OFFBEARER us Gely Carroll MD CHEMISTRY ORDERABLES Final Res ult Performing Organization Address [facility] de Phone Number [facility] [phone] [facility] [address] [facility] [place] [address] * (ABNORMAL) HEMOGLOBIN A1C (07/01/2024 7:25 AM WASTE MACHINE OFFBEARER) HEMOGLOBIN A1C 5.7(H) <5.7 % of total [...] [facility] Comment: Test Performed at: [facility] [address] [place] [address] Kendell Castañeda MD Blood 07/01/2024 7:25 AM WASTE MACHINE OFFBEARER 07/02/2024 6:08 AM WASTE MACHINE OFFBEARER us Gely Carroll MD CHEMISTRY ORDERABLES Final Res ult Performing Organization Address [facility]/ZIP Co de Phone Number [facility] [phone] [facility] [address] [place] [address] * (ABNORMAL) VITAMIN B12 LEVEL (07/01/2024 7:25 AM WASTE MACHINE OFFBEARER) VITAMIN B12 1836(H) 200 - 1100 pg/mL [facility] Comment: Test Performed at: [facility] [address] [place] [address] Kendell Castañeda MD Blood 07/01/2024 7:25 AM WASTE MACHINE OFFBEARER 07/02/2024 6:08 AM WASTE MACHINE OFFBEARER us Gely Carroll MD CHEMISTRY ORDERABLES Final Res ult [facility] [phone] [facility] [address] * (ABNORMAL) LIPID PANEL (07/01/2024 7:25 AM WASTE MACHINE OFFBEARER) CHOLESTEROL 181 <200 mg/dL [facility] HDL 54 > OR = 50 mg/dL [facility] TRIGLYCERIDE 84 <150 mg/dL [facility] LDL CALCULATED 110(H) mg/dL (calc) [...] LDL-C. Job SS et al. ODESSA. 2013;310(19): 6079-7179 (http://education.Comuto/faq/GNQ185) CHOL/HDL RATIO 3.4 <5.0 (calc) [facility] NON-HDL CHOLESTEROL 127 <130 mg/dL (calc) [facility] Comment: For patients with diabetes plus 1 major ASCVD risk factor, treating to a non-HDL-C goal of <100 mg/dL (LDL-C of <70 mg/dL) is considered a therapeutic option. Test Performed at: [facility] [place] [address] Kendell Castañeda MD Blood 07/01/2024 7:25 AM WASTE MACHINE OFFBEARER 07/02/2024 6:08 AM WASTE MACHINE OFFBEARER us Gely Carroll MD CHEMISTRY ORDERABLES Final Res ult [facility] [phone] [facility] [address] [address] [address] * CERV/VAG CYTOPATH, THIN PREP SENIOR QA AUTOMATION ENGINEER AND HPV (11/16/2016) Genital SWAB OF ENDOCERVIX / Unknown us Dolly Melchor MD PATHOLOGY/CYTOLOGY ORDERA BLES Final Result [facility]# [id number] [address] [place] [address] from Last 3 Months or Most Recently Relevant to Health Maintenance Insurance [employer] OPEN ACCESS ALLEGIANCE OPEN ACCESS Care Teams Brigadier Relationship Specialty Start Date End Date Gely Carroll MD [address] [place] [address] [place] [address] PCP - General Internal Medicine 11/09/23
--- OUTSIDE RECORDS SUMMARY | 2024-08-10 10:04 | XMS_ITS | Clinical Summary ---
Author Organization [facility] [place] [address] [facility] Address [address] marj [facility] [place] [address] Care Team Providers Care Recruiting Intern Name Role Phone Meseret Hooper MD Primary Care Provider Allergies Active Allergy Reactions Criticality Noted Date Comments Hydrocodone-Acetaminophen Vomiting Low 06/26/2021 Morphine Dizziness Low 06/26/2021 Oxycodone-Acetaminophen Dizziness Low 06/26/2021 Medications montelukast (SINGULAIR) 10 mg tablet montelukast 10 mg tablet Active vit D3-vit P-gssaqhcol-qgm s 115-279-08-370 lbuf-tam-ra-mg tablet Take by mouth Active ascorbic acid [...] on file Legal Sex Female 8:44 AM PRESS LOADER Gender Identity Not on file Sexual Orientation Not on file Obstetrics History Last Filed Vital Signs Vital Sign Reading Time Taken Comments Blood Pressure 117/85 03/11/2022 11:13 AM CDT Pulse 98 06/26/2021 5:08 PM PRESS LOADER Temperature 36.9 C (98.5 F) 06/26/2021 5:08 PM PRESS LOADER Respiratory Rate 18 03/11/2022 11:13 AM CDT Oxygen Saturation 97% 06/26/2021 5:08 PM PRESS LOADER Inhaled Oxygen Concentration - - Weight 79.4 [...] to complete this topic Insurance Care Teams Recruiting Intern Relationship Specialty Start Date End Date Meseret Hooper MD PCP - General Family Medicine 03/11/22
--- OUTSIDE RECORDS SUMMARY | 2024-08-10 10:04 | XMS_ITS | Encounter Summary ---
Author Organization [facility] Address [address] [place] [address] Care Team Providers Care Beater Engineer Helper Name Role Phone Gely Carroll MD Primary Care Provider Encounter Details Date Type Department Care Team (Latest Contact Info) Description 09/11/2006 Inpatient Historical HIS [facility] Jean Gutierrez MD [address] [facility] [address] [place] [address] Second-Degree Perineal Laceration, with Delivery (Primary Dx) Social History Tobacco Use Types Packs/Day Years Used Date Smoking Tobacco: Never Assessed Comments Unknown Sex and Gender Information Value Date Recorded Sex Assigned at Not on file Legal Sex Female 3:26 AM CURRICULUM COACH Gender Identity Not on file Sexual Orientation Not on file documented as of this encounter Plan of Treatment Upcoming Encounters Date Type Department Care Team (Late st Contact Info) Description 10/07/2024 3:45 PM CDT Office Visit [facility] Rheumatology Britton Rocha [address] [place] [address] [place] [address] [facility] [address] [place] [address] documented as of this encounter Visit Diagnoses Diagnosis Second-degree perineal laceration, with delivery- Primary documented in this encounter Care Teams Beater Engineer Helper Relationship Specialty Start Date End Date Geyl Carroll MD [facility] [place] [address] PCP - General Internal Medicine 11/09/23 documented as of this encounter
--- OUTSIDE RECORDS SUMMARY | 2024-08-10 10:04 | XMS_ITS | Encounter Summary ---
Author Organization [facility] Address [address] [place] [address] Care Team Providers Care Radiological Metallurgist Name Role Phone Gely Carroll MD Primary Care Provider [phone] Encounter Details Date Type Department Care Team (Latest Contact Info) Description 01/01/2004 Outpatient Historical HIS [facility] [place] [address] [place] [address] CONJUNCTIVITIS NOS (Primary Dx) Social History Tobacco Use Types Packs/Day Years Used Date Smoking Tobacco: Never Assessed Comments Unknown Sex and Gender Information Value Date Recorded Sex Assigned at Not on file Legal Sex Female 3:26 AM SECTION LEADER Gender Identity Not on file Sexual Orientation Not on file documented as of this encounter Plan of Treatment Upcoming Encounters Date Type Department Care Team (Late st Contact Info) Description 10/07/2024 3:45 PM CDT Office Visit [facility] Rheumatology Britton Rocha [address] [facility] [address] [place] [address] [place] [address] [facility] [address] [place] [address] documented as of this encounter Visit Diagnoses Diagnosis Conjunctivitis unspecified- Primary Conjunctivitis, unspecified documented in this encounter Care Teams Radiological Metallurgist Relationship Specialty Start Date End Date Gely Carroll MD [address] [place] [address] [place] [address] PCP - General Internal Medicine 11/09/23 documented as of this encounter
--- OUTSIDE RECORDS SUMMARY | 2024-08-10 10:04 | XMS_ITS | Encounter Summary ---
Author Organization [facility] Address [address] [place] [address] Care Team Providers Care Plant Attendant Or Assistant Operator Name Role Phone Gely Carroll MD Primary Care Provider [phone] Encounter Details Date Type Department Care Team (Latest Contact Info) Description 07/05/2003 Outpatient Historical HIS [place] [address] [place] [address] THRT NIKHIL LABOR-ANTEPART (Primary Dx) Social History Tobacco Use Types Packs/Day Years Used Date Smoking Tobacco: Never Assessed Comments Unknown Sex and Gender Information Value Date Recorded Sex Assigned at Not on file Legal Sex Female 3:26 AM ROUTER OPERATOR PIN Gender Identity Not on file Sexual Orientation Not on file documented as of this encounter Plan of Treatment Upcoming Encounters Date Type Department Care Team (Late st Contact Info) Description 10/07/2024 3:45 PM CDT Office Visit [facility] Rheumatology Britton Rocha [address] [facility] [address] [place] [address] [place] [address] [address] [facility] [facility] [address] [place] [address] documented as of this encounter Visit Diagnoses Diagnosis Threatened premature labor, antepartum(644.03)- Primary Threatened premature labor, antepartum documented in this encounter Care Teams Plant Attendant Or Assistant Operator Relationship Specialty Start Date End Date Gely Carroll MD [address] [place] [address] [place] [address] PCP - General Internal Medicine 11/09/23 documented as of this encounter
--- OUTSIDE RECORDS SUMMARY | 2024-08-10 10:04 | XMS_ITS | Referral Summary ---
Author Organization [facility] Address [address] [place] [address] Care Team Providers Care Director Wholesale Name Role Phone Meseret Hooper MD Primary Care Provider Allergies Active Allergy Reactions Criticality Noted Date Comments Hydrocodone-Acetaminophen Vomiting Low 06/26/2021 Morphine Dizziness Low 06/26/2021 Oxycodone-Acetaminophen Dizziness Low 06/26/2021 Medications montelukast (SINGULAIR) 10 mg tablet montelukast 10 mg tablet Active vit D3-vit C-kexnnpqbe-egv s [id number] ppuh-pzq-oj-mg tablet Take by mouth Active ascorbic acid [...] on file Legal Sex Female 8:44 AM SERVICE DESK LEAD Gender Identity Not on file Sexual Orientation Not on file Last Filed Vital Signs Vital Sign Reading Time Taken Comments Blood Pressure 117/85 03/11/2022 11:13 AM CDT Pulse 98 06/26/2021 5:08 PM SERVICE DESK LEAD Temperature 36.9 C (98.5 F) 06/26/2021 5:08 PM SERVICE DESK LEAD Respiratory Rate 18 03/11/2022 11:13 AM CDT Oxygen Saturation 97% 06/26/2021 5:08 PM SERVICE DESK LEAD Inhaled Oxygen Concentration - - Weight 79.4 kg (175 lb) 03/11/2022 11:13 AM CDT Height 149.2 cm (4' 10.74 ) 03/11/2022 11:13 AM CDT Body Mass Index 35.66 03/11/2022 11:13 AM CDT Plan of Treatment Not on file Insurance [employer] Care Teams Director Wholesale Relationship Specialty Start Date End Date Meseret Hooper MD PCP - General Family Medicine 03/11/22
--- OUTSIDE RECORDS SUMMARY | 2024-08-10 10:04 | XMS_ITS | Encounter Summary ---
Author Organization [facility] Address 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 No Escherichia coli serogroup O157:H7 isolated. [facility] FINAL REPORT Only Gram Positive fecal david isolated No Salmonella isolated. No Shigella isolated. No Escherichia coli serogroup O157:H7 isolated. No Camplylobacter isolated. [facility] Stool specimen (specimen) 09/22/2008 4:52 PM CDT 09/22/2008 5:42 PM CDT Andrew Frankel MD MICROBIOLOGY - GENERAL ORDERABL ES Final Result Performing Organization Address [facility] Phone Number INTERFACE SYSTEM Refer to clinic/hospital department [facility] CLIA# [id number] [address] [place] [address] * CLOSTRIDIUM DIFFICILE TOXIN (09/22/2008 4:52 PM CDT) FINAL REPORT NO Clostridium difficile Toxin A or B detected by EIA. A negative result does not rule out C. difficile associated diarrhea or colitis. [facility] Stool specimen (specimen) 09/22/2008 4:52 PM CDT 09/22/2008 5:42 PM CDT Andrew Frankel MD MICROBIOLOGY - GENERAL ORDERABL ES Final Result Performing Organization Address [facility] de Phone Number INTERFACE SYSTEM Refer to clinic/hospital department [facility] CLIA# [id number] [address] [place] [address] * OVA AND PARASITE SCREEN (09/22/2008 4:52 PM CDT) PRELIMINARY REPORT Pending [facility] FINAL REPORT Concentratio n: No ova or parasites seen. Trichrome: No ova or parasites seen. [facility] Stool specimen (specimen) 09/22/2008 4:52 PM CDT 09/22/2008 5:42 PM CDT Narrative INTERFACE SYSTEM - 09/26/2008 1:01 PM CDT Performed by [employer] [address] [address]formed by [employer] [address] Andrew Frankel MD MICROBIOLOGY - GENERAL ORDERABL ES Final Result INTERFACE SYSTEM Refer to clinic/hospital department [facility] CLIA# [id number] [address] [place] [address] documented in this encounter Visit Diagnoses Not on filedocumented in this encounter Care Teams Body Fitter Relationship Specialty Start Date End Date Gely Carroll MD [address] [place] [address] [place] [address] PCP - General Internal Medicine 11/09/23 documented as of this encounter
--- OUTSIDE RECORDS SUMMARY | 2024-08-10 10:04 | XMS_ITS | Encounter Summary ---
Author Organization [email or web address] Address [address] [place] [address] Care Team Providers Care Drafter (Cad) Electronic Name Role Phone Gely Carroll MD Primary Care Provider [phone] Encounter Details Date Type Department Care Team (Late st Contact Info) Description 07/04/2008 Outpatient Historical HIS [facility] [place] [address] [place] [address] Social History Tobacco Use Types Packs/Day Years Used Date Smoking Tobacco: Never Assessed Comments Unknown Sex and Gender Information Value Date Recorded Sex Assigned at Not on file Legal Sex Female 3:26 AM REGISTERED NURSE SUPERVISOR Gender Identity Not on file Sexual Orientation Not on file documented as of this encounter Plan of Treatment Upcoming Encounters Date Type Department Care Team (Late st Contact Info) Description 10/07/2024 3:45 PM CDT [facility] Visit [facility]umatology Britton Rocha [address] [facility] [address] [place] [address] [place] [address] [facility] [address] [place] [address] documented as of this encounter Procedures Procedure Name Priority Date/Time Associated Diagnosis Comments BETA STREP ONLY CULTURE Routine 07/04/2008 12:37 PM REGISTERED NURSE SUPERVISOR documented in this encounter Results * BETA STREP ONLY CULTURE (07/04/2008 12:37 PM REGISTERED NURSE SUPERVISOR) PRELIMINARY REPORT Pending [facility] FINAL REPORT No Group A, C, or G beta Streptococcus isolated. [facility] Specimen from throat (specimen) 07/04/2008 12:37 PM REGISTERED NURSE SUPERVISOR 07/04/2008 3:54 PM REGISTERED NURSE SUPERVISOR us Andrew Frankel MD MICROBIOLOGY - GENERAL ORDERABL ES Final Result INTERFACE SYSTEM Refer to clinic/hospital department [facility] CLIA# [id number] [address] [place] [address] documented in this encounter Visit Diagnoses Not on filedocumented in this encounter Care Teams Drafter (Cad) Electronic Relationship Specialty Start Date End Date Gely Carroll MD [address] [place] [address] PCP - General Internal Medicine 11/09/23 documented as of this encounter
--- OUTSIDE RECORDS SUMMARY | 2024-08-10 10:04 | XMS_ITS | Encounter Summary ---
Author Organization [facility] Address [address] [place] [address] Care Team Providers Care Information Systems Director Name Role Phone Gely Carroll MD Primary Care Provider [phone] Encounter Details Date Type Department Care Team (Late st Contact Info) Description 11/24/2008 Outpatient Historical HIS [facility] [place] [address] [place] [employer] [address] [place] [address] Social History Tobacco Use Types Packs/Day Years Used Date Smoking Tobacco: Never Assessed Comments Unknown Sex and Gender Information Value Date Recorded Sex Assigned at Not on file Legal Sex Female 3:26 AM SURVEY STATISTICIAN Gender Identity Not on file Sexual Orientation Not on file documented as of this encounter Plan of Treatment Upcoming Encounters Date Type Department Care Team (Late st Contact Info) Description 10/07/2024 3:45 PM CDT Office Visit [facility] Rheumatology Britton Rocha [address] [place] [address] [place] [address] [facility] [address] [place] [address] documented as of this encounter Procedures Procedure Name Priority Date/Time Associated Diagnosis Comments STREPTOCOCCUS GROUP A CULTURE Routine 11/24/2008 8:02 PM CDT documented in this encounter Results * STREPTOCOCCUS GROUP A CULTURE (11/24/2008 8:02 PM CDT) PRELIMINARY REPORT Pending [facility] FINAL REPORT No Group A, C, or G beta Streptococcus isolated. [facility] Specimen from throat (specimen) 11/24/2008 8:02 PM CDT 11/25/2008 11:58 AM CDT Saige Desai MD MICROBIOLOGY - GENERAL YU LOERA Final Result Performing Organization Address City/State/[facility] Co de Phone Number INTERFACE SYSTEM Refer to clinic/hospital department [facility] CLIA# [id number] [address] [place] [address] documented in this encounter Visit Diagnoses Not on filedocumented in this encounter Care Teams Information Systems Director Relationship Specialty Start Date End Date Gely Carroll MD [address] [place] [address] [place] [address] PCP - General Internal Medicine 11/09/23 documented as of this encounter
--- OUTSIDE RECORDS SUMMARY | 2024-08-10 10:04 | XMS_ITS | Encounter Summary ---
Author Organization [facility] Address [address] [place] [address] Care Team Providers Care Medical Editor Name Role Phone Gely Carroll MD Primary Care Provider [phone] Encounter Details Date Type Department Care Team (Late st Contact Info) Description 04/09/2008 Outpatient Historical HIS [facility] [place] [address] [place] [address] Social History Tobacco Use Types Packs/Day Years Used Date Smoking Tobacco: Never Assessed Comments Unknown Sex and Gender Information Value Date Recorded Sex Assigned at Not on file Legal Sex Female 3:26 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 Gender Identity Not on file Sexual Orientation Not on file documented as of this encounter Plan of Treatment Upcoming Encounters Date Type Department Care Team (Late st Contact Info) Description 10/07/2024 3:45 PM CDT Office Visit [facility] Rheumatology Britton Rocha [address] [facility] [address] [place] [address] [place] [address] [facility] [address] [place] [address] documented as of this encounter Procedures Procedure Name Priority Date/Time Associated Diagnosis Comments BETA STREP ONLY CULTURE Routine 04/09/2008 11:19 AM CDT documented in this encounter Results * BETA STREP ONLY CULTURE (04/09/2008 11:19 AM CDT) PRELIMINARY REPORT Pending [facility] FINAL REPORT No Group A, C, or G beta Streptococcus isolated. [facility] Specimen from throat (specimen) 04/09/2008 11:19 AM CDT 04/09/2008 10:19 PM CDT us Andrew Frankel MD MICROBIOLOGY - GENERAL ORDERABL ES Final Result INTERFACE SYSTEM Refer to clinic/hospital department [facility] CLIA# [id number] [address] [place] [address] documented in this encounter Visit Diagnoses Not on filedocumented in this encounter Care Teams Medical Editor Relationship Specialty Start Date End Date Gely Carroll MD [address] [place] [address] PCP - General Internal Medicine 11/09/23 documented as of this encounter
--- OUTSIDE RECORDS SUMMARY | 2024-08-10 10:05 | XMS_ITS | Encounter Summary ---
Author Organization [facility] Address [address] [place] [address] Care Team Providers Care Superintendent Seed Mill Name Role Phone Gely Carroll MD Primary Care Provider [phone] Encounter Details Date Type Department Care Team (Latest Contact Info) Description 09/24/2003 Outpatient Historical HIS [facility] [place] Susan Guo MD SCARLET FEVER (Primary Dx) Social History Tobacco Use Types Packs/Day Years Used Date Smoking Tobacco: Never Assessed Comments Unknown Sex and Gender Information Value Date Recorded Sex Assigned at Not on file Legal Sex Female 3:26 AM MACARONI PRESS OPERATOR Gender Identity Not on file Sexual Orientation Not on file documented as of this encounter Plan of Treatment Upcoming Encounters Date Type Department Care Team (Late st Contact Info) Description 10/07/2024 3:45 PM CDT Office Visit [facility] Rheumatology Britton Rocha [address] [place] [address] [place] [address] [facility] [address] [place] [address] documented as of this encounter Visit Diagnoses Diagnosis Scarlet fever- Primary documented in this encounter Care Teams Superintendent Seed Mill Relationship Specialty Start Date End Date Gely Carroll MD [address] [place] [address] [place] [address] PCP - General Internal Medicine 11/09/23 documented as of this encounter
--- OUTSIDE RECORDS SUMMARY | 2024-08-10 10:05 | XMS_ITS | Encounter Summary ---
Author Organization [facility] Address [address] [place] [address] Care Team Providers Care Integrity Specialist Name Role Phone Gely Carroll MD Primary Care Provider [phone] Encounter Details Date Type Department Care Team (Latest Contact Info) Description 08/01/2006 Outpatient Historical [place] [facility] [place] [address] [address] [address] [place] [address] Acute Upper Respiratory Infections of Unspecified Site (Primary Dx) Social History Tobacco Use Types Packs/Day Years Used Date Smoking Tobacco: Never Assessed Comments Unknown Sex and Gender Information Value Date Recorded Sex Assigned at Not on file Legal Sex Female 3:26 AM ORCHID HAND Gender Identity Not on file Sexual Orientation Not on file documented as of this encounter Plan of Treatment Upcoming Encounters Date Type Department Care Team (Late st Contact Info) Description 10/07/2024 3:45 PM CDT Office Visit [facility] Rheumatology Britton Rocha [address] [facility] [address] [place] [address] [place] [address] [address] [place] [address] documented as of this encounter Visit Diagnoses Diagnosis Acute upper respiratory infections of unspecified site- Primary documented in this encounter Care Teams Integrity Specialist Relationship Specialty Start Date End Date Gely Carroll MD [address] [place] [address] [place] [address] PCP - General Internal Medicine 11/09/23 documented as of this encounter
--- OUTSIDE RECORDS SUMMARY | 2024-08-10 10:05 | XMS_ITS | Encounter Summary ---
Author Organization [facility] Address [address] [place] [address] Care Team Providers Care Street Engineer Name Role Phone Gely Carroll MD Primary Care Provider [phone] Encounter Details Date Type Department Care Team (Latest Contact Info) Description 08/19/2006 Outpatient Historical HIS PATIENT IN A BED (Excluded Provider) Woody Maxwell MD NO ADDRESS ON FILE Jean Gutierrez MD [address] [facility] [address] [place] [address] Threatened Premature Labor, Antepartum (Primary Dx) Social History Tobacco Use Types Packs/Day Years Used Date Smoking Tobacco: Never Assessed Comments Unknown Sex and Gender Information Value Date Recorded Sex Assigned at Not on file Legal Sex Female 3:26 AM RN SPINE Gender Identity Not on file Sexual Orientation Not on file documented as of this encounter Plan of Treatment Upcoming Encounters Date Type Department Care Team (Late st Contact Info) Description 10/07/2024 3:45 PM CDT Office Visit [facility] Rheumatology Britton Rocha [address] [place] [address] [place] [address] [facility] [address] [place] [address] documented as of this encounter Procedures Procedure Name Priority Date/Time Associated Diagnosis Comments URINALYSIS W/REFLEX MICROSCOPIC Routine 08/19/2006 8:43 AM RN SPINE documented in this encounter Results * URINALYSIS (08/19/2006 8:43 AM RN SPINE) COLOR UA Pale Yellow INTERFAC E SYSTEM [...] Negative Negative INTERFACE SYSTEM 08/19/2006 8:43 AM RN SPINE us Jean Gutierrez MD URINE ORDERABLES Edite d INTERFACE SYSTEM Refer to clinic/hospital department documented in this encounter Visit Diagnoses Diagnosis Threatened premature labor, antepartum(644.03)- Primary Threatened premature labor, antepartum documented in this encounter Care Teams Street Engineer Relationship Specialty Start Date End Date Gely Carroll MD [address] [place] [address] [place] [address] PCP - General Internal Medicine 11/09/23 documented as of this encounter
--- OUTSIDE RECORDS SUMMARY | 2024-08-10 10:05 | XMS_ITS | Encounter Summary ---
Author Organization [facility] Address [address] [place] [address] Care Team Providers Care Lottery Sales Clerk Name Role Phone Gely Carroll MD Primary Care Provider [phone] Encounter Details Date Type Department Care Team (Latest Contact Info) Description 08/19/2006 Outpatient Historical HIS PATIENT IN A BED (Excluded Provider) Woody Maxwell MD NO ADDRESS ON FILE Jean Gutierrez MD [address] [facility] [address] [place] [address] Threatened Premature Labor, Antepartum (Primary Dx) Social History Tobacco Use Types Packs/Day Years Used Date Smoking Tobacco: Never Assessed Comments Unknown Sex and Gender Information Value Date Recorded Sex Assigned at Not on file 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 Sex Female 3:26 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 Gender Identity Not on file Sexual Orientation Not on file documented as of this encounter Plan of Treatment Upcoming Encounters Date Type Department Care Team (Late st Contact Info) Description 10/07/2024 3:45 PM CDT Office Visit [facility] Rheumatology Britton Rocha [address] [place] [address] [place] [address] [facility] [address] [place] [address] documented as of this encounter Visit Diagnoses Diagnosis Threatened premature labor, antepartum(644.03)- Primary Threatened premature labor, antepartum documented in this encounter Care Teams Lottery Sales Clerk Relationship Specialty Start Date End Date Gely Carroll MD [address] [place] [address] [place] [address] PCP - General Internal Medicine 11/09/23 documented as of this encounter
--- OUTSIDE RECORDS SUMMARY | 2024-08-10 10:05 | XMS_ITS | Encounter Summary ---
Author Organization [facility] Address [address] [place] [address] Care Team Providers Care Mottler Machine Feeder Name Role Phone Gely Carroll MD Primary Care Provider [phone] Encounter Details Date Type Department Care Team (Latest Contact Info) Description 02/08/2006 Outpatient Historical HIS OB PREADMIT Jean Gutierrez MD [address] [facility] [address] [place] [address] Other Current Maternal Conditions Classifiable Elsewhere, Antepartum (Primary Dx) Social History Tobacco Use Types Packs/Day Years Used Date Smoking Tobacco: Never Assessed Comments Unknown Sex and Gender Information Value Date Recorded Sex Assigned at Not on file Legal Sex Female 3:26 AM SHED WORKERS SUPERVISOR Gender Identity Not on file Sexual Orientation Not on file documented as of this encounter Plan of Treatment Upcoming Encounters Date Type Department Care Team (Late st Contact Info) Description 10/07/2024 3:45 PM CDT Office Visit [facility] Rheumatology Britton Rocha [address] [place] [address] [place] [address] [facility] [address] [place] [address] documented as of this encounter [...] WITH DIFFERENTIAL (02/08/2006 7:18 PM CDT) Pathologist [facility] NEUTROPHIL ABSOLUTE 6.05 1.90 - 7.00 K/uL [...] HEMATOLOGY ORDERABLES Final Result Performing Organization Address City/[facility] Co de Phone Number INTERFACE SYSTEM Refer to clinic/hospital department documented in this encounter Visit Diagnoses Diagnosis Other current maternal conditions classifiable elsewhere, antepartum- Primary documented in this encounter Care Teams Mottler Machine Feeder Relationship Specialty Start Date End Date Gely Carroll MD [address] [place] [address] PCP - General Internal Medicine 11/09/23 documented as of this encounter
--- OUTSIDE RECORDS SUMMARY | 2024-08-10 10:05 | XMS_ITS | Encounter Summary ---
Author Organization [facility] Address [address] [place] [address] Care Team Providers Care Program Evaluation Consultant Name Role Phone Gely Carroll MD Primary Care Provider [phone] Encounter Details Date Type Department Care Team (Latest Contact Info) Description 01/15/2004 Outpatient Historical HIS [facility] Susan Guo MD SWELLING OF LIMB (Primary Dx) Social History Tobacco Use Types Packs/Day Years Used Date Smoking Tobacco: Never Assessed Comments Unknown Sex and Gender Information Value Date Recorded Sex Assigned at Not on file Legal Sex Female 3:26 AM HOT STONE SETTER Gender Identity Not on file Sexual Orientation Not on file documented as of this encounter Plan of Treatment Upcoming Encounters Date Type Department Care Team (Late st Contact Info) Description 10/07/2024 3:45 PM CDT Office Visit [facility] Rheumatology Britton Rocha [address] [place] [address] [place] [address] [facility] [address] [place] [address] documented as of this encounter Visit Diagnoses Diagnosis Swelling of limb- Primary documented in this encounter Care Teams Program Evaluation Consultant Relationship Specialty Start Date End Date eGly Carroll MD [address] [place] [address] [place] [address] PCP - General Internal Medicine 11/09/23 documented as of this encounter
--- OUTSIDE RECORDS SUMMARY | 2024-08-10 10:05 | XMS_ITS | Encounter Summary ---
Author Organization [facility] Address [address] [place] [address] Care Team Providers Care Research Test Engine Operator Name Role Phone Gely Carroll MD Primary Care Provider [phone] Encounter Details Date Type Department Care Team (Latest Contact Info) Description 08/09/2006 Outpatient Historical HIS PATIENT IN A BED MattJean MD [address] [facility] [address] [place] [address] Other Specified Complication, Antepartum (Primary Dx) Social History Tobacco Use Types Packs/Day Years Used Date Smoking Tobacco: Never Assessed Comments Unknown Sex and Gender Information Value Date Recorded Sex Assigned at Not on file Legal Sex Female 3:26 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 AND SCENERY 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 Gender Identity Not on file Sexual Orientation Not on file documented as of this encounter Plan of Treatment Upcoming Encounters Date Type Department Care Team (Late st Contact Info) Description 10/07/2024 3:45 PM CDT Office Visit [facility] Rheumatology Girma Rocha [address] [facility] [address] [place] [address] [place] [address] [facility] [address] [place] [address] documented as of this encounter Visit Diagnoses Diagnosis Other specified complication, antepartum(646.83)- Primary Other specified complication, antepartum documented in this encounter Care Teams Research Test Engine Operator Relationship Specialty Start Date End Date Gely Carroll MD [address] [place] [address] [place] [address] PCP - General Internal Medicine 11/09/23 documented as of this encounter
--- OUTSIDE RECORDS SUMMARY | 2024-08-10 10:05 | XMS_ITS | Encounter Summary ---
Author Organization [facility] Address 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 Gender Identity Not on file Sexual Orientation Not on file documented as of this encounter Plan of Treatment Upcoming Encounters Date Type Department Care Team (Late st Contact Info) Description 10/07/2024 3:45 PM CDT Office Visit [facility] Rheumatology Girma Rocha [address] [facility] [address] [place] [address] [place] [address] [facility] [address] [place] [address] documented as of this encounter Visit Diagnoses Diagnosis Infections of genitourinary tract antepartum- Primary documented in this encounter Care Teams Trust Manager Relationship Specialty Start Date End Date Gely Carroll MD [address] [place] [address] [place] [address] PCP - General Internal Medicine 11/09/23 documented as of this encounter
--- OUTSIDE RECORDS SUMMARY | 2024-08-10 10:05 | XMS_ITS | Encounter Summary ---
Author Organization [employer] Address [address] [place] [address] Care Team Providers Care Cardroom Plastic Card Grader Name Role Phone Gely Carroll MD Primary Care Provider [phone] Encounter Details Date Type Department Care Team (Latest Contact Info) Description 11/30/2005 Outpatient Historical HIS [facility] Susan Guo MD Unspecified Local Infection of Skin and Subcutaneous Tissue (Primary Dx) Social History Tobacco Use Types Packs/Day Years Used Date Smoking Tobacco: Never Assessed Comments Unknown Sex and Gender Information Value Date Recorded Sex Assigned at Not on file 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 Gender Identity Not on file Sexual Orientation Not on file documented as of this encounter Plan of Treatment Upcoming Encounters Date Type Department Care Team (Late st Contact Info) Description 10/07/2024 3:45 PM CDT Office Visit [facility] Rheumatology Britton Rocha [address] [facility] [address] [place] [address] [place] [address] [facility] [address] [place] [address] documented as of this encounter Visit Diagnoses Diagnosis Unspecified local infection of skin and subcutaneous tissue- Primary documented in this encounter Care Teams Cardroom Plastic Card Grader Relationship Specialty Start Date End Date Gely Carroll MD [address] [place] [address] [place] [address] PCP - General Internal Medicine 11/09/23 documented as of this encounter
--- OUTSIDE RECORDS SUMMARY | 2024-08-10 10:05 | XMS_ITS | Encounter Summary ---
Author Organization [employer] [facility] Address 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 Gender Identity Not on file Sexual Orientation Not on file documented as of this encounter Plan of Treatment Upcoming Encounters Date Type Department Care Team (Late st Contact Info) Description 10/07/2024 3:45 PM CDT Office Visit [facility] Rheumatology Britton Rocha [address] [facility] [address] [place] [address] [place] [address] [facility] [address] [place] [address] documented as of this encounter Visit Diagnoses Diagnosis Acute upper respiratory infections of unspecified site- Primary documented in this encounter Care Teams Automatic Oven Operator Relationship Specialty Start Date End Date Gely Carroll MD [address] [place] [address] [place] [address] PCP - General Internal Medicine 11/09/23 documented as of this encounter
--- OUTSIDE RECORDS SUMMARY | 2024-08-10 10:05 | XMS_ITS | Clinical Summary ---
Author Organization [facility] Address [address] [place] [address] Care Team Providers Care Vp Medical Name Role Phone None, Provider MD Primary [...] to complete this topic Insurance Care Teams Vp Medical Relationship Specialty Start Date End Date None, Provider, PCP - General 11/02/21
--- OUTSIDE RECORDS SUMMARY | 2024-08-10 10:05 | XMS_ITS | Encounter Summary ---
Author Organization [email or web address] Address [address] [place] [address] Care Team Providers Care Tire Repairman Name Role Phone Gely Carroll MD Primary Care Provider [phone] Encounter Details Date Type Department Care Team (Late st Contact Info) Description 03/07/2006 Outpatient Historical HIS EMERGENCY ROOM Desirae Lopez [place] [address] Er, Authorized P NO ADDRESS ON FILE Other Current Maternal Conditions Classifiable Elsewhere, Antepartum (Primary Dx) Social History Tobacco Use Types Packs/Day Years Used Date Smoking Tobacco: Never Assessed Comments Unknown Sex and Gender Information Value Date Recorded Sex Assigned at Not on file 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 Rheumatology Britton Rocha [address] [facility] [address] [place] [address] [place] [address] [address] [facility] [address] [place] [address] documented as of this encounter Visit Diagnoses Diagnosis Other current maternal conditions classifiable elsewhere, antepartum- Primary documented in this encounter Care Teams Tire Repairman Relationship Specialty Start Date End Date Gely Carroll MD [address] [place] [address] [employer] [place] [address] PCP - General Internal Medicine 11/09/23 documented as of this encounter
--- OUTSIDE RECORDS SUMMARY | 2024-08-10 10:05 | XMS_ITS | Encounter Summary ---
Author Organization [facility] Address [address] [place] [address] Care Team Providers Care Neurology Epilepsy Physician Name Role Phone Gely Carroll MD Primary Care Provider [phone] Encounter Details Date Type Department Care Team (Latest Contact Info) Description 09/12/2003 Inpatient Historical HIS PATIENT IN A BED Jean Gutierrez MD [address] [facility] [address] [place] [address] NORMAL DELIVERY (Primary Dx) Social History Tobacco Use Types Packs/Day Years Used Date Smoking Tobacco: Never Assessed Comments Unknown Sex and Gender Information Value Date Recorded Sex Assigned at Not on file 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 Gender Identity Not on file Sexual Orientation Not on file documented as of this encounter Plan of Treatment Upcoming Encounters Date Type Department Care Team (Late st Contact Info) Description 10/07/2024 3:45 PM CDT Office Visit [facility] Rheumatology Girma Rocha [address] [facility] [address] [place] [address] [place] [address] [facility] [address] [place] [address] documented as of this encounter Visit Diagnoses Diagnosis Normal delivery- Primary documented in this encounter Care Teams Neurology Epilepsy Physician Relationship Specialty Start Date End Date Gely Carroll MD [address] [place] [address] [place] [address] PCP - General Internal Medicine 11/09/23 documented as of this encounter
--- OUTSIDE RECORDS SUMMARY | 2024-08-10 10:05 | XMS_ITS | Encounter Summary ---
Author Organization [facility] Address [address] [place] [address] Care Team Providers Care Multimedia Authoring Specialist Name Role Phone Gely Carroll MD Primary Care Provider [phone] Encounter Details Date Type Department Care Team (Latest Contact Info) Description 03/07/2006 Outpatient Historical HIS OB PREADMIT Jean Gutierrez MD [address] [facility] [address] [place] [address] Other Current Maternal Conditions Classifiable Elsewhere, Antepartum (Primary Dx) Social History Tobacco Use Types Packs/Day Years Used Date Smoking Tobacco: Never Assessed Comments Unknown Sex and Gender Information Value Date Recorded Sex Assigned at Not on file 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 Sex Female 3:26 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/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 Gender Identity Not on file Sexual Orientation Not on file documented as of this encounter Plan of Treatment Upcoming Encounters Date Type Department Care Team (Late st Contact Info) Description 10/07/2024 3:45 PM CDT Office Visit [facility] Rheumatology Britton Rocha [address] [place] [address] [place] [address] [place] [address] documented as of this encounter Visit Diagnoses Diagnosis Other current maternal conditions classifiable elsewhere, antepartum- Primary documented in this encounter Care Teams Multimedia Authoring Specialist Relationship Specialty Start Date End Date Gely Carroll MD [address] [place] [address] [place] [address] PCP - General Internal Medicine 11/09/23 documented as of this encounter
--- OUTSIDE RECORDS SUMMARY | 2024-08-10 10:05 | XMS_ITS | Encounter Summary ---
Author Organization [facility] Address [address] [place] [address] Care Team Providers Care Sledger Name Role Phone Gely Carroll MD Primary Care Provider [phone] Encounter Details Date Type Department Care Team (Latest Contact Info) Description 02/05/2006 Outpatient Historical HIS PATIENT IN A BED Jean Gutierrez MD [address] [facility] [address] [place] [address] Mild Hyperemesis Gravidarum, Antepartum (Primary Dx) Social History Tobacco Use Types Packs/Day Years Used Date Smoking Tobacco: Never Assessed Comments Unknown Sex and Gender Information Value Date Recorded Sex Assigned at Not on file Legal Sex Female 3:26 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 REPRESENTATIVE Gender Identity Not on file Sexual Orientation Not on file documented as of this encounter Plan of Treatment Upcoming Encounters Date Type Department Care Team (Late st Contact Info) Description 10/07/2024 3:45 PM CDT Office Visit [facility] Rheumatology Britton Rocha [address] [place] [address] [place] [address] [facility] [address] [place] [address] documented as of this encounter [...] Primary documented in this encounter Care Teams Sledger Relationship Specialty Start Date End Date Gely Carroll MD [address] [place] [address] PCP - General Internal Medicine 11/09/23 documented as of this encounter
[2024-08-10 10:25] VITALS: BP 131/94; PULSE 80; RESP 16; O2SAT 99
[2024-08-10 11:12] VITALS: BP 125/85; PULSE 84; RESP 18; O2SAT 97
--- NOTE | 2024-08-10 11:45 | ED_ITS ---
HPI - General Adult General Chief complaint: Extremity Problem,Nontraumatic Stated complaint: left calf pain Time Seen by Provider: 08/10/24 09:42 History of Present Illness HPI narrative: 39-year-old female present to the emergency department for evaluation for left calf pain and swelling. Patient reports that she began developing symptoms for flu on Monday and noticed leg swelling on Monday. Patient states she has had some cough and congestion but denies any chest pain or shortness of breath. Related Data Home Medications ?Medication ?Instructions ?Recorded ?Confirmed ?Last Taken ?Type montelukast 10 mg tablet 10 mg PO QHS 10/18/19 04/12/24 1 Day Ago History ~03/31/23 cetirizine 10 mg tablet (Zyrtec) 10 mg PO QHS 03/24/20 04/12/24 1 Day Ago History ~03/31/23 oxybutynin chloride 5 mg 5 mg PO QHS 07/04/22 04/12/24 1 Day Ago History tablet,extended release 24 hr ~03/31/23 diphenhydramine HCl 25 mg capsule 50 mg PO QHS 03/31/23 04/12/24 1 Day Ago History (Allergy (diphenhydramine)) ~03/31/23 fluticasone propionate 50 2 spray intranasal QHS 03/31/23 04/12/24 1 Day Ago History mcg/actuation nasal ~03/31/23 spray,suspension budesonide-formoterol HFA 80 2 puff inhalation BID 04/12/24 04/12/24 Unknown History mcg-4.5 mcg/actuation aerosol inhaler Allergies Allergy/AdvReac Type Severity Reaction Status Date / Time codeine Allergy Severe Loss of Verified 08/10/24 10:26 Consciousness orange Allergy Intermediate Itching Verified 08/10/24 10:26 morphine AdvReac Intermediate chest Verified 08/10/24 10:26 pressure oxycodone AdvReac Intermediate vomiting, Verified 08/10/24 10:26 syncope Review of Systems Review of Systems: All systems reviewed & are unremarkable except as noted in HPI and below PMFSH Past Medical History Medical History Anxiety Asthma Depression Fibromyalgia GERD (gastroesophageal reflux disease) Hx of migraines Surgical History Surgical History H/O dilation and curettage Family History Family History Father Hypertension Prostate carcinoma Social History Social History Smoking packs per day: 1.5 Smoking cigarettes per day: 30.0 Years smoked: 12 Smoking pack-years: 18.00 Smoking status: Former smoker Tobacco type: cigarettes Second hand tobacco smoke exposure: No Additional smoking assessment comments: quit 12 years ago Alcohol intake: never Alcohol use details: socially Substance use: never Substance use type: marijuana Last use: 16 years ago Lack of Transportation: No Lack of Food: Never True Current Housing: I Have Housing Concerned About Future Housing: No Difficulty Paying Gas/Electric Bills: No Difficulty Paying for Meds: No Currently Unemployed: No Education: Associate Degree Difficulty w/ Childcare or Family Care: No Occupation/Education: unemployed Gender identity (if verbalized by the patient): Female Spiritual care concerns: No Exam Narrative: APPEARANCE: Well appearing, no pain, no distress, well-nourished. HEAD: normocephalic, atraumatic. EYES: PERRLA/EOMI, conjunctivae clear. NOSE: Normal no drainage EARS:TMS clear with good light reflex. THROAT: Pharynx clear, no exudate. NECK: Supple. No adenopathy, no masses. RESPIRATORY: Airway patent, respirations nonlabored. Clear to auscultation bilaterally, no rales, rhonchi, wheezing. CARDIOVASCULAR: Regular rate and rhythm without murmurs rubs or gallops. ABDOMINAL: Soft, nontender, nondistended, normal bowel sounds MUSCULOSKELETAL: Minor tenderness to palpation of the left calf with no significant edema, no cellulitis, neurovascularly intact NEURO: Alert. Cranial nerves II through XII intact. Good gait. Good coordination SKIN: Warm, dry. Normal Color Course Vital Signs Vital signs: Vital Signs Temperature 97.6 F 08/10/24 09:14 Pulse Rate 95 08/10/24 09:14 Respiratory Rate 18 08/10/24 09:14 Blood Pressure 136/92 H 08/10/24 09:14 Pulse Oximetry 97 08/10/24 09:14 Oxygen Delivery Room Air 08/10/24 09:14 Temperature 97.6 F 08/10/24 09:14 Pulse Rate 84 08/10/24 11:12 Respiratory Rate 18 08/10/24 11:12 Blood Pressure 125/85 08/10/24 11:12 Pulse Oximetry 97 08/10/24 11:12 Oxygen Delivery Room Air 08/10/24 09:14 Medical Decision Making MDM Narrative Medical decision making narrative: 39-year-old female presenting to the emergency department for evaluation for left calf pain. Ultrasound was negative for DVT. No exam concerning for significant swelling, no cellulitis. Patient was encouraged close follow-up with primary care physician. All questions concerns were addressed. Differential Diagnosis Differential Diagnosis: Lower extremity edema,, DVT, cellulitis, Ferguson cyst Vital Signs Vital Signs: Vital Signs Temperature 97.6 F 08/10/24 09:14 Pulse Rate 95 08/10/24 09:14 Respiratory Rate 18 08/10/24 09:14 Blood Pressure 136/92 H 08/10/24 09:14 Pulse Oximetry 97 08/10/24 09:14 Oxygen Delivery Room Air 08/10/24 09:14 Temperature 97.6 F 08/10/24 09:14 Pulse Rate 84 08/10/24 11:12 Respiratory Rate 18 08/10/24 11:12 Blood Pressure 125/85 08/10/24 11:12 Pulse Oximetry 97 08/10/24 11:12 Oxygen Delivery Room Air 08/10/24 09:14 Imaging Data Radiologist's impression: Impressions Venous Doppler Study 08/10/24 10:39 IMPRESSION: 1. No deep venous thrombosis in the left lower limb. Discharge Plan Discharge Clinical Impression: Acute viral syndrome, Myalgia Patient Disposition: Home, Self-Care Condition: Stable Instructions: Antibiotic Form Additional Instructions: Drink plenty of fluids. Tylenol and ibuprofen for pain control. If you have any worsening symptoms then please call or return to the emergency department. Patient Language: Yoruba Prescriptions: No Action oxybutynin chloride 5 mg tablet extended release 24hr 5 mg PO QHS budesonide-formoterol 80-4.5 mcg/actuation HFA aerosol inhaler 2 puff INHALATION BID diphenhydramine HCl [Allergy (diphenhydramine)] 25 mg Capsule 50 mg PO QHS fluticasone propionate 50 mcg/actuation [place],Suspension 2 spray INTRANASAL QHS Rx Instructions: 2 SPRAYS PER NOSTRIL montelukast 10 mg tablet 10 mg PO QHS cetirizine [Zyrtec] 10 mg Tablet 10 mg PO QHS Follow-up/Referrals: Rufus,Meseret Mccollum MD [Primary Care Provider] -
== END 2024-08-10 11:56 | disposition home or self-care (01) ==
PROVIDERS: Emergency Provider Emergency Medicine; PCP Family Medicine
DX: B34.9 Viral infection, unspecified (principal); M79.10 Myalgia, unspecified site; J45.909 Unspecified asthma, uncomplicated; M79.7 Fibromyalgia; K21.9 Gastro-esophageal reflux disease without esophagitis; Z87.891 Personal history of nicotine dependence
CPT/HCPCS: 93971; 99284